=== PATIENT | female | born 1950 | race Caucasian/White ===

== ENCOUNTER 2016-09-30 13:22 | Emergency (ER) | payer MEDICARE ==
[~2016-09-30] VITALS: Ht 154.9 cm; Wt 105.0 kg
[~2016-09-30 13:22] MED LIST: DIPH2%T PO; NINT1CAP2 PO; OMEP20TA39 PO; PAPATAB; RANI150 PO; SALI0.65
[2016-09-30 13:27] VITALS: BP 132/88; PULSE 92; RESP 16; TEMP 97.8; O2SAT 95
[2016-09-30] MEDS ORDERED: CEPH-460 PO (15:55)
--- NOTE | 2016-09-30 15:55 | PD ---
HPI Chief Complaint: Edema Time Seen by Provider: 15:47 Travel History International Travel<30 days: No Contact w/Intl Traveler<30days: No Traveled to known affect area: No History of Present Illness HPI Patient is a 66-year-old female who presents the emergency department with complaint of swelling to the right leg. Approximately 2 weeks ago patient bumped her right leo. Since she has had some bruising and mild erythema. She was seen by her PCP who started her on Bactrim 2 days ago. Patient has been compliant with this but states that the swelling is slightly worse, redness is slightly worse. She called her PCP who instructed her to come to the ER. No risk factors for DVT. She has not noticed any significant swelling in out from the site of the injury within the remainder of the calf or ankle. No shortness of breath worse than her baseline, she does have chronic pulmonary fibrosis. No fevers or chills. 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 HYATAL HERNIA) GERD: Yes Genitourinary: No Headaches: Yes Hypertension: Yes Immune Disorder: No Implanted Vascular Access Dvce: No Musculoskeletal: Yes Neurologic: No Reproductive: Yes (HYSTERECTOMY) Respiratory: Yes Immunizations Current: Yes Menopausal: Yes Past Surgical History Abdominal Surgery: Yes (INCISIONAL HERNIA REPAIR) Cholecystectomy: Yes (1991) Gynecologic Surgery: Yes (HYSTERECTOMY 2003) Hysterectomy: Yes Pacemaker: No Tonsillectomy: Yes Other Surgery: Yes (hernia repair) Social History Alcohol Use: No Tobacco Use: No Substance Use: No Allergies-Medications (Allergen,Severity, Reaction): Coded Allergies: Augmentin (Verified Adverse Reaction, Intermediate, GI UPSET, 11/28/15) Uncoded Allergies: SOME TAPES -RED SAMANTHA (Allergy, Mild, 09/25/07) LEAVES RED SAAMNTHA Reported Meds & Prescriptions Reported Meds & Active Scripts Active Reported Papaya Enzyme (Digestive Enzymes) Tab Saline Nasal [place] (Saline) 0.65 % Spr Benadryl (Diphenhydramine HCl) 25 Mg Cap 25 Mg PO HS PRN Ofev (Nintedanib Esylate) 150 Mg Cap 100 Mg PO Q12HR Zantac 150 Mg Tab (Ranitidine HCl) 150 Mg Tab 150 Mg PO HS Hm Omeprazole (Omeprazole) 20 Mg Tab 20 Mg PO BID Review of Systems Except as stated in HPI: all other systems reviewed are Neg Physical Exam Narrative GENERAL: Pleasant elderly female in no acute distress SKIN: Warm and dry. HEAD: Normocephalic. EYES: No scleral icterus. No injection or drainage. ENT: Mucous membranes pink and moist. NECK: Supple CARDIOVASCULAR: Regular rate and rhythm. RESPIRATORY: No accessory muscle use. MUSCULOSKELETAL: Right lower extremity with abrasion over the anterior mid leo with surrounding ecchymosis and mild erythema but no significant induration, fluctuance. The remainder of the and foot/ankle are primarily nonedematous, symmetric. Strength is decreased throughout, patient is wheelchair-bound. All of her weakness is chronic per patient NEUROLOGICAL: Awake and alert. Normal speech. PSYCHIATRIC: Appropriate mood and affect; insight and judgment normal. Data Data Last Documented VS Vital Signs Date Time Temp Pulse Resp B/P Pulse Ox O2 Delivery O2 Flow Rate FiO2 09/30/16 13:27 97.8 92 16 132/88 95 Nasal Cannula 3 MDM Medical Decision Making Medical Screen Exam Complete: Yes Emergency Medical Condition: Yes Medical Record Reviewed: Yes Differential Diagnosis 66-year-old female here with complaint of swelling and redness to the right leo. Exam is consistent with early cellulitis. No evidence of abscess, cellulitis failing outpatient management, DVT. Narrative Course Will broaden antibiotic regimen from Bactrim to Bactrim plus Keflex. Patient will be discharged home. Diagnosis Primary Impression: Cellulitis of right leg Additional Impression: Abrasion, right lower leg, initial encounter Referrals: Primary Care Physician as needed Additional Instructions: Bactrim and Keflex as prescribed. Follow-up with primary care provider early next week if symptoms persist and return to the ER for the warning signs discussed. Med/Other Pt SpecificInfo: Prescription(s) given Scripts Cephalexin (Keflex)500 Mg Ntd619 Mg PO Q8H 7 Days Ref 0 Prov:Neeta Cardenas MD 09/30/16 Disposition: DISCHARGE HOME Condition: Stable Neeta Cardenas MD Sep 30, 2016 15:55
== END 2016-09-30 17:19 | disposition home or self-care (01) ==
LOC: NEPA 13:22
DX: L03.115 Cellulitis of right lower limb (principal); S80.811A Abrasion, right lower leg, initial encounter; I10 Essential (primary) hypertension; Z87.09 Personal history of other diseases of the respiratory system; Z86.59 Personal history of other mental and behavioral disorders; Z87.19 Personal history of other diseases of the digestive system; Z87.39 Personal history of other diseases of the musculoskeletal system and connective tissue; W22.8XXA Striking against or struck by other objects, initial encounter

== ENCOUNTER 2016-10-18 18:10 | Emergency (ER) | payer MEDICARE ==
[~2016-10-18] VITALS: Ht 154.9 cm; Wt 108.6 kg
[~2016-10-18 18:10] MED LIST changes: +CEPH-460 PO
[2016-10-18 18:22] VITALS: PULSE 114; RESP 16; TEMP 98.4; O2SAT 95
[2016-10-18] MEDS ORDERED: PAPATAB (18:34)
[2016-10-18] MEDS ORDERED: VITA20003 (18:34)
[2016-10-18] MEDS ORDERED: BENA25TA3 PO (18:34)
[2016-10-18] MEDS ORDERED: ZANT150T2 PO (18:34)
[2016-10-18] MEDS ORDERED: [UNRECOGNIZED DRUG - CODE] PO (18:34)
[2016-10-18] MEDS ORDERED: PRED10 PO (18:34)
[2016-10-18] MEDS ORDERED: OMEP20TA PO (18:34)
[2016-10-18 18:46] VITALS: BP 190/94; PULSE 111; RESP 22; O2SAT 98
[2016-10-18 18:48] VITALS: BP 190/94; PULSE 111; RESP 22; TEMP 98.4; O2SAT 98
--- NOTE | 2016-10-18 18:59 | PD ---
HPI Chief Complaint: GI Complaint Time Seen by Provider: 18:30 Travel History International Travel<30 days: No Contact w/Intl Traveler<30days: No Traveled to known affect area: No History of Present Illness HPI This 66-year-old female says she is not feeling well. She had some chest pain yesterday. It was a substernal pain that radiated to her back. It lasted about 15 minutes. She does have a history of hiatal hernia and gets occasional chest pain. He says that today she's been feeling nauseated. She has not vomited. She is not aware of fever. She has a history of idiopathic pulmonary fibrosis and is on efeb. She is on continuous home oxygen. She has a pulse oximeter at home and noted that she was a bit tachycardic. 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 HYATAL HERNIA) GERD: Yes Genitourinary: No Headaches: Yes Hypertension: Yes Immune Disorder: No Implanted Vascular Access Dvce: No Musculoskeletal: Yes Neurologic: No Reproductive: Yes (HYSTERECTOMY) Respiratory: Yes Immunizations Current: Yes Tetanus Vaccination: Unknown ?: Not Menopausal: Yes Past Surgical History Abdominal Surgery: Yes (INCISIONAL HERNIA REPAIR) Cholecystectomy: Yes (1991) Gynecologic Surgery: Yes (HYSTERECTOMY 2003) Hysterectomy: Yes Pacemaker: No Tonsillectomy: Yes Other Surgery: Yes (hernia repair) Social History Alcohol Use: No Tobacco Use: No Substance Use: No Allergies-Medications (Allergen,Severity, Reaction): Coded Allergies: Augmentin (Verified Adverse Reaction, Intermediate, GI UPSET, 10/18/16) Uncoded Allergies: SOME TAPES -RED SAMANTHA (Allergy, Mild, 09/25/07) LEAVES RED SAMANTHA Reported Meds & Prescriptions Reported Meds & Active Scripts Active Reported Zantac (Ranitidine HCl) 150 Mg Tab 150 Mg PO DAILY Vitamin D (Cholecalciferol) 2,000 Unit Tab DAILY Omeprazole 20 Mg Tab 20 Mg PO BID Ofev (Nintedanib) 100 Mg Cap 100 Mg PO Q12H Benadryl Allergy (Diphenhydramine HCl) 25 Mg Tab 25 Mg PO HS PRN Prednisone 10 Mg Tab 10 Mg PO DAILY Papaya Enzyme (Digestive Enzymes) 1 Tab Tab Review of Systems General / Constitutional: No: Fever, Chills Eyes: No: Diploplia, Blurred Vision HENT: No: Headaches Cardiovascular: Positive: Chest Pain or Discomfort, Palpitations, Tachycardia Respiratory: No: Cough, Shortness of Breath Gastrointestinal: Positive: Nausea, No: Vomiting Physical Exam Narrative GENERAL: Well-developed female SKIN: Focused skin assessment warm/dry. HEAD: Atraumatic. Normocephalic. EYES: Pupils equal and round. No scleral icterus. No injection or drainage. ENT: No nasal bleeding or discharge. Mucous membranes pink and moist. NECK: Trachea midline. No JVD. CARDIOVASCULAR: Regular rate and rhythm. No murmur appreciated. RESPIRATORY: There are coarse rales bilaterally GASTROINTESTINAL: Abdomen soft, non-tender, nondistended. Hepatic and splenic margins not palpable. MUSCULOSKELETAL: No obvious deformities. No clubbing. No cyanosis. Trace edema. NEUROLOGICAL: Awake and alert. No obvious cranial nerve deficits. Motor grossly within normal limits. Normal speech. PSYCHIATRIC: Appropriate mood and affect; insight and judgment normal. Data Data Last Documented VS Vital Signs Date Time Temp Pulse Resp B/P Pulse Ox O2 Delivery O2 Flow Rate FiO2 10/18/16 20:24 100 20 181/88 99 10/18/16 18:48 98.4 Nasal Cannula 4 Orders Electrocardiogram (10/18/16 18:52) Complete Blood Count With Diff (10/18/16 18:52) Comprehensive Metabolic Panel (10/18/16 18:52) Troponin I (10/18/16 18:52) Prothrombin Time / Inr (Pt) (10/18/16 18:52) Act Partial Throm Time (Ptt) (10/18/16 18:52) Lipase (10/18/16 18:52) Urinalysis - C+S If Indicated (10/18/16 18:52) Chest, Single Ap (10/18/16 18:52) Ondansetron Inj (Zofran Inj) (10/18/16 19:00) Al-Mag Hy-Si 40-40-4 Mg/Ml Liq (Mag-Al P (10/18/16 19:00) Labs Laboratory Tests Test 10/18/16 10/18/16 19:00 19:45 White Blood Count 10.5 TH/MM3 Red Blood Count 4.83 MIL/MM3 Hemoglobin 13.9 GM/DL Hematocrit 44.4 % Mean Corpuscular Volume 91.9 FL Mean Corpuscular Hemoglobin 28.9 PG Mean Corpuscular Hemoglobin 31.4 % Concent Red Cell Distribution Width 14.9 % Platelet Count 225 TH/MM3 Mean Platelet Volume 8.7 FL Neutrophils (%) (Auto) 80.5 % Lymphocytes (%) (Auto) 13.5 % Monocytes (%) (Auto) 4.6 % Eosinophils (%) (Auto) 0.3 % Basophils (%) (Auto) 1.1 % Neutrophils # (Auto) 8.5 TH/MM3 Lymphocytes # (Auto) 1.4 TH/MM3 Monocytes # (Auto) 0.5 TH/MM3 Eosinophils # (Auto) 0.0 TH/MM3 Basophils # (Auto) 0.1 TH/MM3 CBC Comment DIFF FINAL Differential Comment Prothrombin Time 10.6 SEC Prothromb Time International 1.0 RATIO Ratio Activated Partial 26.4 SEC Thromboplast Time Sodium Level 141 MEQ/L Potassium Level 4.2 MEQ/L Chloride Level 98 MEQ/L Carbon Dioxide Level 39.6 MEQ/L Anion Gap 3 MEQ/L Blood Urea Nitrogen 14 MG/DL Creatinine 0.82 MG/DL Estimat Glomerular Filtration 70 ML/MIN Rate Random Glucose 148 MG/DL Calcium Level 8.3 MG/DL Total Bilirubin 0.2 MG/DL Aspartate Amino Transf 26 U/L (AST/SGOT) Alanine Aminotransferase 77 U/L (ALT/SGPT) Alkaline Phosphatase 76 U/L Troponin I LESS THAN 0.02 NG/ML Total Protein 7.2 GM/DL Albumin 2.8 GM/DL Lipase 144 U/L [facility] Medical Decision Making Medical Screen Exam Complete: Yes Emergency Medical Condition: Yes Medical Record Reviewed: Yes Differential Diagnosis Differential includes hiatal hernia, coronary artery disease, atypical chest pain Narrative Course This lady's chest pain was 24 hours ago and lasted about 15 minutes. Her EKG is unchanged from previous tracings in her troponin is normal. Most likely due to her known hiatal hernia Diagnosis Primary Impression: Hiatal hernia Additional Instructions: Return as needed Disposition: 01 DISCHARGE HOME Condition: Stable Fadi Loomis MD Oct 18, 2016 18:59
[2016-10-18] MEDS ORDERED: ALUMINUM/MAGNESIUM/SIMETH 30 ML CUP PO ONE (19:00)
[2016-10-18] MEDS ORDERED: ONDANSETRON HCL 4 MG/2 ML VIAL IV PUSH ONE (19:00)
[2016-10-18 19:14] LABS: AUTOMATED NEUTROPHIL # 8.5 TH/MM3 (1.8-7.7); BASOPHIL # 0.1 TH/MM3 (0-0.2); BASOPHIL % 1.1 % (0.0-2.0); EOSINOPHIL % 0.3 % (0.0-4.0); HEMATOCRIT 44.4 % (35.0-46.0); LYMPH % 13.5 % (9.0-44.0); LYMPHOCYTE # 1.4 TH/MM3 (1.0-4.8); MEAN CELL VOLUME 91.9 FL (80.0-100.0); MEAN CORPUSCULAR HEMOGLOBIN 28.9 PG (27.0-34.0); MEAN CORPUSCULAR HGB CONC 31.4 % (32.0-36.0); MONO % 4.6 % (0.0-8.0); NEUT % 80.5 % (16.0-70.0); PLATELET COUNT 225 TH/MM3 (150-450); RED BLOOD COUNT 4.83 MIL/MM3 (4.00-5.30); RED CELL DISTRIBUTION WIDTH 14.9 % (11.6-17.2); WHITE BLOOD COUNT 10.5 TH/MM3 (4.0-11.0)
[2016-10-18 19:21] LABS: HEMO FLAGS DIFF FINAL
--- NOTE | 2016-10-18 19:30 | RADHPO ---
EXAM DATE/TIME: 10/18/2016 19:18 [facility] COMPARISON: CHEST SINGLE AP, November 28, 2015, 16:10. INDICATIONS : Short of breath and nauseous. MEDICAL HISTORY : Idiopathic pulmonary fibrosis SURGICAL HISTORY : None. ENCOUNTER: Initial ACUITY: 2 days PAIN SCORE: 0/10 LOCATION: Bilateral chest FINDINGS: The a single AP erect portable view of the chest was obtained. This study is kyphotic in positioning and Midinspiratory with crowding of the lung vasculature. The heart size appears mildly prominent. Raymundo zy interstitial opacities are present in both lungs which may be artifactual. CONCLUSION: Suboptimal Midinspiratory study with crowding of the lung vasculature. There is appar ent cardiomegaly and interstitial opacities in both lungs which may be artifactual and due to the Mid inspiratory view. Silviano Schaefer MD on October 18, 2016 at 19:27 Board Certified Radiologist. This report was verified electronically.
[2016-10-18 20:06] LABS: CHLORIDE 98 MEQ/L (98-107); POTASSIUM 4.2 MEQ/L (3.5-5.1); SODIUM (NA) 141 MEQ/L (136-145)
[2016-10-18 20:10] LABS: ANION GAP 3 MEQ/L (5-15); APTT (PATIENT) 26.4 SEC (24.3-30.1); BICARBONATE 39.6 MEQ/L (21.0-32.0); BLOOD UREA NITROGEN 14 MG/DL (7-18); PROTHROMBIN TIME - PATIENT 10.6 SEC (9.8-11.6)
[2016-10-18 20:12] LABS: ALT (GPT) 77 U/L (10-53)
[2016-10-18 20:13] LABS: AST (GOT) 26 U/L (15-37); GLOMERULAR FILTRATION RATE 70 ML/MIN (>89)
[2016-10-18 20:14] LABS: TOTAL BILIRUBIN ADULT 0.2 MG/DL (0.2-1.0)
[2016-10-18 20:16] LABS: ALKALINE PHOSPHATASE 76 U/L (45-117)
[2016-10-18 20:24] VITALS: BP 181/88; PULSE 100; RESP 20; O2SAT 99
[2016-10-18 21:04] VITALS: BP 179/89; PULSE 101; RESP 20; O2SAT 98
--- NOTE | 2016-10-19 10:34 | EKG ---
Date Performed: 10/18/2016 Time Performed: 18:58:38 PTAGE: 66 years EKG: Sinus tachycardia. rSr'(V1) - probable normal variant Left ventricular hypertrophy by [employer] [place] ge only Abnormal ECG PREVIOUS TRACING : 11/28/2015 15.47 DOCTOR: Marlo Kaplan Interpretating Date/Time 10/19/2016 10:33:59
== END 2016-10-18 21:21 | disposition home or self-care (01) ==
LOC: PHED 18:10
DX: K44.9 Diaphragmatic hernia without obstruction or gangrene (principal); R11.0 Nausea; R00.0 Tachycardia, unspecified; R94.31 Abnormal electrocardiogram [ECG] [EKG]; I10 Essential (primary) hypertension; Z99.81 Dependence on supplemental oxygen; Z87.09 Personal history of other diseases of the respiratory system; Z86.59 Personal history of other mental and behavioral disorders; Z87.19 Personal history of other diseases of the digestive system; Z87.39 Personal history of other diseases of the musculoskeletal system and connective tissue
CPT/HCPCS: 71010; 80053; 83690; 84484; 85025; 85610; 85730; 93005; 96374; 99284; J2405

== ENCOUNTER 2017-03-08 15:47 | Inpatient (IN) | payer MEDICARE ==
[~2017-03-08] VITALS: Ht 152.4 cm; Wt 107.6 kg
[2017-03-08] VITALS (10 sets, daily range): BP systolic 142–172; BP diastolic 78–91; PULSE 96–112; RESP 20–24; TEMP 98.3–98.9; O2SAT 94–98
[~2017-03-08 15:47] MED LIST changes: +BENA25TA3 PO; -CEPH-460 PO; -DIPH2%T PO; -NINT1CAP2 PO; +OMEP20TA PO; -OMEP20TA39 PO; +PRED10 PO; -RANI150 PO; -SALI0.65; +VITA20003; +ZANT150T2 PO; +[UNRECOGNIZED DRUG - CODE] PO
[2017-03-08] MEDS ORDERED: SODIUM CHLORIDE 0.9% FLUSH 10 ML FLUSH IVF PRN (16:15)
--- NOTE | 2017-03-08 16:15 | PD ---
HPI Chief Complaint: shortness of breath Time Seen by Provider: 15:59 Travel History International Travel<30 days: No Contact w/Intl Traveler<30days: No Traveled to known affect area: No History of Present Illness HPI This 66-year-old female is complaining of shortness of breath and generalized weakness. She has a history of idiopathic pulmonary fibrosis. She is on OFEV. She recently finished a course of doxycycline. She is on prednisone 10 mg daily. She also gets a weekly dose of vitamin D. She has a history of Patel' s esophagus and is on multiple medications. She is on oxygen all the time of 4 L/m. She says that the last few days he's been feeling weaker than usual and has been short of breath and she has never been on a ventilator. She has never been admitted for pulmonary fibrosis. She is not aware of fever or chills. She stopped smoking in 1991. She has no known history of heart disease. 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 HYATAL HERNIA) GERD: Yes Genitourinary: No Headaches: Yes Hypertension: Yes Immune Disorder: No Implanted Vascular Access Dvce: No Musculoskeletal: Yes Neurologic: No Reproductive: Yes (HYSTERECTOMY) Respiratory: Yes Immunizations Current: Yes Menopausal: Yes Past Surgical History Abdominal Surgery: Yes (INCISIONAL HERNIA REPAIR) Cholecystectomy: Yes (1991) Gynecologic Surgery: Yes (HYSTERECTOMY 2003) Hysterectomy: Yes Pacemaker: No Tonsillectomy: Yes Other Surgery: Yes (hernia repair) Social History Alcohol Use: No Tobacco Use: No Substance Use: No Allergies-Medications (Allergen,Severity, Reaction): Coded Allergies: amoxicillin (Unverified Adverse Reaction, Intermediate, GI UPSET, 03/08/17) clavulanic acid (Unverified Adverse Reaction, Intermediate, GI UPSET, 03/08) Uncoded Allergies: SOME TAPES -RED SAMANTHA (Adverse Reaction, Mild, 03/08/17) LEAVES RED SAMANTHA Reported Meds & Prescriptions Reported Meds & Active Scripts Active Reported D3 Maximum Strength (Cholecalciferol) 5,000 Unit Cap 50,000 Units PO WEEKLY Chavies (Saline) 0.65 % Spr 1 NASAL DAILY PRN Nasonex Nasal [place] (Mometasone Furoate) 50 Mcg/Act Naspr 2 [place] EACH NARE DAILY Zantac (Ranitidine HCl) 150 Mg Tab 150 Mg PO DAILY Omeprazole 20 Mg Tab 20 Mg PO BID Ofev (Nintedanib) 100 Mg Cap 100 Mg PO Q12H Prednisone 10 Mg Tab 10 Mg PO DAILY Papaya Enzyme (Digestive Enzymes) 1 Tab Tab Review of Systems General / Constitutional: No: Fever, Chills Eyes: No: Diploplia, Blurred Vision HENT: No: Headaches, Vertigo Cardiovascular: No: Chest Pain or Discomfort, Palpitations Respiratory: Positive: Shortness of Breath, No: Cough, Hemoptysis Gastrointestinal: No: Nausea, Vomiting Genitourinary: No: Urgency Musculoskeletal: No: Myalgias Skin: No Rash, No Itching Neurologic: Positive: Weakness Hematologic/Lymphatic: No: Easy Bruising Physical Exam Narrative GENERAL: Well-developed female labored breathing. Her saturation on arrival on 4 L of oxygen is 86% SKIN: Focused skin assessment warm/dry. HEAD: Atraumatic. Normocephalic. EYES: Pupils equal and round. No scleral icterus. No injection or drainage. ENT: No nasal bleeding or discharge. Mucous membranes pink and moist. NECK: Trachea midline. No JVD. CARDIOVASCULAR: Regular rate and rhythm. No murmur appreciated. RESPIRATORY: There is accessory muscle use. There are coarse rales in the right side chest GASTROINTESTINAL: Abdomen soft, non-tender, nondistended. Hepatic and splenic margins not palpable. MUSCULOSKELETAL: No obvious deformities. No clubbing. No cyanosis. No edema. NEUROLOGICAL: Awake and alert. No obvious cranial nerve deficits. Motor grossly within normal limits. Normal speech. PSYCHIATRIC: Appropriate mood and affect; insight and judgment normal. Data Data Last Documented VS Vital Signs Date Time Temp Pulse Resp B/P (MAP) Pulse Ox O2 Delivery O2 Flow Rate FiO2 03/08/17 17:05 110 20 162/85 (110) 96 Nasal Cannula 4.00 03/08/17 16:10 98.9 Orders Orders Complete Blood Count With Diff (03/08/17 16:08) Comprehensive Metabolic Panel (03/08/17 16:08) B-Type Natriuretic Peptide (03/08/17 16:08) Troponin I (03/08/17 16:08) Urinalysis - C+S If Indicated (03/08/17 16:08) Influenzae A/B Antigen (03/08/17 16:08) Blood Culture (03/08/17 16:08) Iv Access Insert/Monitor (03/08/17 16:08) Electrocardiogram (03/08/17 16:08) Ecg Monitoring (03/08/17 16:08) Oximetry (03/08/17 16:08) Oxygen Administration (03/08/17 16:08) Chest, Single Ap (03/08/17 16:08) Sodium Chloride 0.9% Flush (Ns Flush) (03/08/17 16:15) Albuterol Neb (Albuterol Neb) (03/08/17 16:15) Admit Order (Ed Use Only) (03/08/17 17:33) Admit To Inpatient (03/08/17 ) Labs Laboratory Tests Test 03/08/17 16:20 White Blood Count 11.5 TH/MM3 Red Blood Count 4.56 MIL/MM3 Hemoglobin 13.6 GM/DL Hematocrit 41.6 % Mean Corpuscular Volume 91.3 FL Mean Corpuscular Hemoglobin 29.8 PG Mean Corpuscular Hemoglobin Concent 32.7 % Red Cell Distribution Width 13.9 % Platelet Count 222 TH/MM3 Mean Platelet Volume 8.1 FL Neutrophils (%) (Auto) 87.1 % Lymphocytes (%) (Auto) 7.8 % Monocytes (%) (Auto) 4.1 % Eosinophils (%) (Auto) 0.5 % Basophils (%) (Auto) 0.5 % Neutrophils # (Auto) 9.9 TH/MM3 Lymphocytes # (Auto) 0.9 TH/MM3 Monocytes # (Auto) 0.5 TH/MM3 Eosinophils # (Auto) 0.1 TH/MM3 Basophils # (Auto) 0.1 TH/MM3 CBC Comment DIFF FINAL Differential Comment Blood Urea Nitrogen 16 MG/DL Creatinine 0.92 MG/DL Random Glucose 135 MG/DL Total Protein 7.4 GM/DL Albumin 2.9 GM/DL Calcium Level 9.0 MG/DL Alkaline Phosphatase 61 U/L Aspartate Amino Transf (AST/SGOT) 15 U/L Alanine Aminotransferase (ALT/SGPT) 21 U/L Total Bilirubin 0.3 MG/DL Sodium Level 138 MEQ/L Potassium Level 4.2 MEQ/L Chloride Level 95 MEQ/L Carbon Dioxide Level 39.8 MEQ/L Anion Gap 3 MEQ/L Estimat Glomerular Filtration Rate 61 ML/MIN Troponin I LESS THAN 0.02 NG/ML B-Type Natriuretic Peptide LESS THAN 2 PG/ML MDM Medical Decision Making Medical Screen Exam Complete: Yes Emergency Medical Condition: Yes Medical Record Reviewed: Yes Differential Diagnosis Differential includes exacerbation of pulmonary fibrosis, pneumonia, CHF Narrative Course X-ray is unchanged from previous x-rays. Patient sees Dr. Dickinson and I have called him but his service says he does not accept calls from this hospital. I spoken with Dr. Mcintyre. The patient has been deteriorating in spite of her current medication. She will be admitted Diagnosis Primary Impression: Idiopathic pulmonary fibrosis Additional Impression: Hypoxia Disposition: 01 DISCHARGE HOME Condition: Stable Fadi Loomis MD Mar 08, 2017 16:15
[2017-03-08] MEDS: RESP: ALBUTEROL 2.5 MG/3 ML NEB (SCH) INH ×2 (16:25→16:26)
--- NOTE | 2017-03-08 16:39 | RADRPT ---
EXAM DATE/TIME: 03/08/2017 16:10 [facility] COMPARISON: CHEST SINGLE AP, November 28, 2015, 16:10. CHEST SINGLE AP, June 23, 2015, 14:05. CHEST SINGLE AP, A pril 2016, 19:18. INDICATIONS : Short of breath. MEDICAL HISTORY : Idiopathic pulmonary fibrosis. SURGICAL HISTORY : None. ENCOUNTER: Initial ACUITY: 2 days PAIN SCORE: 0/10 LOCATION: Bilateral chest FINDINGS: Bilateral hilar prominence and diffuse coarse interstitial thickening are grossly unchanged. No signi ficant effusion. Cardiomediastinal contours are grossly stable. CONCLUSION: Stable abnormal chest appearance Irvin Tomlinson MD on March 08, 2017 at 16:36 Board Certified Radiologist. This report was verified electronically.
[2017-03-08 16:45] LABS: AUTOMATED NEUTROPHIL # 9.9 TH/MM3 (1.8-7.7); BASOPHIL # 0.1 TH/MM3 (0-0.2); BASOPHIL % 0.5 % (0.0-2.0); EOSINOPHIL # 0.1 TH/MM3 (0-0.4); EOSINOPHIL % 0.5 % (0.0-4.0); HEMATOCRIT 41.6 % (35.0-46.0); HEMO FLAGS DIFF FINAL; LYMPH % 7.8 % (9.0-44.0); LYMPHOCYTE # 0.9 TH/MM3 (1.0-4.8); MEAN CELL VOLUME 91.3 FL (80.0-100.0); MEAN CORPUSCULAR HEMOGLOBIN 29.8 PG (27.0-34.0); MEAN CORPUSCULAR HGB CONC 32.7 % (32.0-36.0); MONO % 4.1 % (0.0-8.0); NEUT % 87.1 % (16.0-70.0); PLATELET COUNT 222 TH/MM3 (150-450); RED BLOOD COUNT 4.56 MIL/MM3 (4.00-5.30); RED CELL DISTRIBUTION WIDTH 13.9 % (11.6-17.2); WHITE BLOOD COUNT 11.5 TH/MM3 (4.0-11.0)
[2017-03-08 16:53] LABS: CHLORIDE 95 MEQ/L (98-107); POTASSIUM 4.2 MEQ/L (3.5-5.1); SODIUM (NA) 138 MEQ/L (136-145)
[2017-03-08 16:57] LABS: ANION GAP 3 MEQ/L (5-15); BICARBONATE 39.8 MEQ/L (21.0-32.0); BLOOD UREA NITROGEN 16 MG/DL (7-18)
[2017-03-08 17:00] LABS: ALT (GPT) 21 U/L (10-53); AST (GOT) 15 U/L (15-37); GLOMERULAR FILTRATION RATE 61 ML/MIN (>89)
[2017-03-08 17:01] LABS: TOTAL BILIRUBIN ADULT 0.3 MG/DL (0.2-1.0)
[2017-03-08 17:02] LABS: ALKALINE PHOSPHATASE 61 U/L (45-117)
[2017-03-08] MEDS ORDERED: AYR0.65S NASAL (17:04)
[2017-03-08] MEDS ORDERED: MOME17I EACH NARE (17:04)
[2017-03-08] MEDS: LEVOFLOXACIN 500 MG TAB PO SCH (18:10)
[2017-03-08] MEDS ORDERED: CHOL1CAP14 PO (18:15)
[2017-03-08 18:47] LABS: BLOOD, URINE LARGE (NEG); GLUCOSE,URINE NEG (NEG); KETONE, URINE NEG (NEG); NITRITE,URINE NEG (NEG)
[2017-03-08 19:00] LABS: URINE COLOR YELLOW (YELLW/STRAW)
[2017-03-08 19:01] LABS: BACTERIA, URINE FEW /hpf; COMMENT (UR) CULTURE INDICATED; CULTURE IF INDICATED CULTURE INDICATED; MUCUS URINE FEW /lpf (OCC); SQUAMOUS EPITHELIAL CELL URINE > 8 /hpf (0-5)
[2017-03-08] MEDS: RESP: ALBUTEROL 1.25 MG/3 ML NEB (PRN) NEB (19:21)
[2017-03-08] MEDS ORDERED: RESP: ALBUTEROL 2.5 MG/3 ML NEB (SCH) NEB (20:00)
--- NOTE | 2017-03-08 21:58 | MH ---
cc: JOS DUNLAP M.D. DATE OF ADMISSION 03/08/2017 ADMISSION DIAGNOSES 1. Chronic idiopathic pulmonary fibrosis on chronic oxygen with worsening shortness of breath. 2. Zamorano's esophagus. 3. Gastroesophageal reflux disease. 4. Allergic rhinitis. HISTORY OF THE PRESENT ILLNESS Pertinent history, this is a pleasant 66-year-old white female who came to emergency room because of a little bit increasing weakness over the last few days with increasing shortness of breath. She has chronic idiopathic pulmonary fibrosis diagnosed in 2014, has been on chronic oxygen since then. She normally uses 4 liters of oxygen. She states she has been little bit more short of breath especially with exertion in the last few days. She sees a local hydramatic specialist Dr. Freitas. She was recently treated for a sinus symptoms with doxycycline that she finished. She denies any increased cough at this time. Denies any chills, vomiting or diarrhea. In the ED her O2 sat was a little bit low when she came in on 4 liters and they initially put her on 5 liters. She was given some albuterol treatment. She has some problems with anxiety with Atrovent and does not use that. She has not been regularly using her Atrovent. She is on daily prednisone at 10 mg a day. Her chest x-ray showed chronic interstitial changes and they were stable. She is admitted for oxygen therapy and was put on Levaquin. Will be continued on nebulizer treatments and oral prednisone. PAST MEDICAL HISTORY As mentioned has: 1. Chronic idiopathic pulmonary fibrosis on chronic oxygen. 2. She has gastroesophageal reflux disease and Zamorano's esophagus. 3. She had questionable history of asthma in the past. Denies any COPD or emphysema. 4. She was treated one time with lisinopril for hypertension but was taken off of it when she developed a cough and has not been on medicine since then. 5. She has had no heart disease, liver or kidney disease. No colon disease. No stroke or seizure no cancer. No diabetes. PAST SURGICAL HISTORY 1. Has had a colonoscopy about 5 years ago. 2. She had a total abdominal hysterectomy and bilateral salpingo-oophorectomy. 3. Had an incisional hernia repair. 4. Tonsillectomy. 5. Laparoscopic cholecystectomy. ALLERGIES LISINOPRIL CAUSES COUGH. AUGMENTIN CAUSES GI DISTRESS. MEDICATIONS She takes: 1. Ranitidine 150 mg at bedtime. 2. Omeprazole 20 mg twice a day. 3. She is on Nintedanib 100 mg twice a day for pulmonary fibrosis. 4. He is on prednisone 10 mg a day. 5. Atrovent nebulizer solution p.r.n. 6. Fluticasone nasal spray as needed for allergic rhinitis. FAMILY HISTORY Mother of heart failure at 82. She had diabetes. Father at 61 of stroke, had diabetes. SOCIAL HISTORY She quit smoking in 1991, smoked up to two packs a day and smoked for 20 years. Does not use alcohol. Lives alone. Never . 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 She does not currently work. REVIEW OF SYSTEMS GENERAL: No documented temperature above 100. No chills. HEENT: Nose, she has had the recent sinus symptoms and a yellow drainage from her nose that is improved. No sore throat. CARDIOVASCULAR: No chest pain. No palpitations. LUNGS: As mentioned. GASTROINTESTINAL: She does get reflux symptoms and belching up acid after eating. No diarrhea, melena, rectal bleeding. No abdominal pain. GENITOURINARY: No dysuria, urgency. EXTREMITIES: She does have some chronic slight edema of her ankles more in her right leg. No calf pain. SKIN: Without rash. NEUROLOGIC: No numbness or tingling or focal weakness. PHYSICAL EXAMINATION GENERAL: Pleasant, obese white female in no distress. VITAL SIGNS: Her pulse is around 104, BP 142/86, O2 sat currently is 96% on 4 liters, they had moved her back down to 4 liters. HEENT: TMs clear. Nose negative. Mouth without inflammation. NECK: Without bruit. No JVD. CARDIOVASCULAR: Regular rate and rhythm. No murmur. LUNGS: Dry crackles throughout her lungs. No wheezing. ABDOMEN: Soft, nontender, no masses. EXTREMITIES: With just trace to 1+ edema right ankle. Trace edema left ankle. Pulses palpated both feet. No calf tenderness. SKIN: Without rash. NEUROLOGIC: Oriented x3. Motor strength symmetrical. Sensation intact. LABORATORY DATA White count 11.5, hemoglobin 13.6, platelets 222,000. Sodium 138, potassium 4.2, chloride 95, CO2 39.8, BUN 16, creatinine 0.92, random glucose 135, GFR 61. AST, ALT alkaline phosphatase normal. Troponin less than 0.02. Albumin 2.9, total protein was 7.4. BNP less than 2. IMAGING STUDIES Her chest x-ray shows stable abnormal chest appearance with bilateral hilar prominence and diffuse coarse interstitial thickening that was grossly unchanged. No effusion noted. ASSESSMENT As noted. PLAN The patient being admitted, maintained on oxygen and she will be given at albuterol nebulizer treatments. She is on prednisone 10 mg a day. We will put her on Levaquin 500 mg a day. A pulmonary consult was ordered as well. She has not formally decided her code status, she however, states she would not want to be put on a respirator if it could be determined she would have difficulty coming off of the ventilator. I told her that is difficult for us to determine. We will give her bilateral SCDs and ALYCIA hose. MD LUCIO Zabala/PARAS /7:14 PM /9:28 PM
[2017-03-08] MEDS: PANTOPRAZOLE SOD 20 MG DELAYED RELEASE TAB PO SCH (22:50)
[2017-03-09 00:15] VITALS: BP 184/94; PULSE 94; RESP 18; TEMP 98.3; O2SAT 95
[2017-03-09 00:40] VITALS: BP 165/99; PULSE 92; RESP 20; TEMP 98.1; O2SAT 97
[2017-03-09 00:41] VITALS: BP 143/84; PULSE 89
[2017-03-09 04:00] VITALS: BP 164/80; PULSE 88; RESP 20; TEMP 96.8; O2SAT 98
[2017-03-09 06:32] LABS: AUTOMATED NEUTROPHIL # 6.3 TH/MM3 (1.8-7.7); BASOPHIL % 0.3 % (0.0-2.0); EOSINOPHIL # 0.1 TH/MM3 (0-0.4); EOSINOPHIL % 1.5 % (0.0-4.0); HEMATOCRIT 39.5 % (35.0-46.0); HEMO FLAGS DIFF FINAL; LYMPH % 19.3 % (9.0-44.0); LYMPHOCYTE # 1.8 TH/MM3 (1.0-4.8); MEAN CELL VOLUME 91.9 FL (80.0-100.0); MEAN CORPUSCULAR HEMOGLOBIN 29.7 PG (27.0-34.0); MEAN CORPUSCULAR HGB CONC 32.3 % (32.0-36.0); MONO % 9.4 % (0.0-8.0); NEUT % 69.5 % (16.0-70.0); PLATELET COUNT 192 TH/MM3 (150-450); RED CELL DISTRIBUTION WIDTH 14.6 % (11.6-17.2); WHITE BLOOD COUNT 9.1 TH/MM3 (4.0-11.0)
--- NOTE | 2017-03-09 06:34 | MB ---
cc: Pati DUNLAP M.D. DATE OF CONSULTATION 03/08/2017 HISTORY A 66-year-old white female with a known history of pulmonary fibrosis followed by Dr. Mathis who has been on OFEV for two years as well as a low dose of prednisone at 10 mg a day. She presented today complaining of generalized weakness and just not feeling like her breathing was right. She has had no unusual cough, no congestion or purulent sputum. No chest pain or hemoptysis. She monitors her saturation at home and on 4 liters she has been running in the 80s or low 90s which is where she normally lives. Nothing really preceded this. Yesterday was a good day, although she did recently feel that she had a sinus infection and she was treated with doxycycline. On presentation to the emergency room, she has been afebrile, heart rate is 100, blood pressure on presentation was 172/81, currently 140/80, saturations are 96% at 4 liters, respirations are comfortable at 18-22. The patient also has a prior history of asthma at some point but says that she is no longer taking any of breathing medications. She does have a nebulizer at home but did not use it. Here in the emergency room she did receive an aerosol treatment and says she feels better. She has had no increasing edema, no bowel symptoms such as diarrhea or vomiting. She does have a history of Zamorano's esophagus and chronic reflux for many years which both Dr. Mathis and Dr. Diana at the [facility] suggested may be related to her pulmonary fibrotic disease. ADDITIONAL PAST HISTORY 1. Hypertension. 2. Prior hysterectomy, postmenopausal. 3. Cholecystectomy. SOCIAL HISTORY Lives alone with her dog, sometimes feels a little isolated and afraid because of the disease. Monitors her saturation carefully and is concerned that she drops when she exerts herself but that is nothing new or acute. No alcohol use. No tobacco use. ALLERGIES AMOXICILLIN. CLAVULANIC ACID. TAPE. REVIEW OF SYSTEMS As noted above, essentially negative other than generalized weakness and the feeling that her breathing was more short. PHYSICAL EXAMINATION VITAL SIGNS: Pulse is 100, respirations are 18-22, blood pressure 140/86, saturation 96% on 4 liters. HEENT: Sclerae anicteric. NECK: Neck veins are flat. No adenopathy in the neck or supraclavicular region. LUNGS: Fine basilar rales about [facility] up both lungs posterior, sound chronic and fibrotic, not moist. No wheezing. No harsh murmur. ABDOMEN: Very obese but soft and nontender. EXTREMITIES: Large legs but no pitting edema. No calf tenderness. Nail beds are pink. LABORATORY White count is 11,000, hemoglobin is 13, platelets 222. BNP is low. CHEST X-RAY Diffuse interstitial changes interpreted by the radiologist as stable when compared to the previous films. Influenza A and B are negative. Two blood cultures were drawn and are pending. ASSESSMENT AND PLAN Ms. Mera has a known history of interstitial lung disease, pulmonary fibrosis chronic. She is under the care of Dr. Mathis and has been a low dose of prednisone and OFEV. She just did not have a good feeling today, although now she feels much better after an aerosol treatment. She is mildly tachycardiac, otherwise vitals are stable and her O2 sats are stable on the 4 liters which she normally uses. She has been admitted which I think is reasonable given her history. She may do well with overnight observation and another aerosol treatment which I have ordered p.r.n. I do not think she needs any further adjustment in therapy, although if she becomes more short of breath and this is an exacerbation of her fibrosis, we will need to switch her over to at least a short course of IV corticosteroids. If she is discharged tomorrow after 23-hour observation feeling much better, I have encouraged her to call Dr. Mathis's office this week and let him know that she was here. He would probably want to see her back within the next week for follow up to see if any further adjustment would be needed for her chronic lung disease. The patient also has a nebulizer at home and I encouraged her to use that. If she has episodes like this in the future, they may be of benefit as they were here in the ER today. Thank you for asking me to see her with you in consultation. R. MD ELA Hyman/XAVIER /6:33 PM /6:13 AM
[2017-03-09] MEDS ORDERED: ALBU1.25 NEB (07:15)
[2017-03-09] MEDS ORDERED: COZA25TA PO (07:15)
[2017-03-09] MEDS ORDERED: LEVA500T20 PO (07:15)
[2017-03-09] MEDS: RESP: ALBUTEROL 1.25 MG/3 ML NEB (PRN) NEB (07:18)
[2017-03-09 07:20] VITALS: O2SAT 94
--- NOTE | 2017-03-09 07:25 | HHI.PR ---
Subjective Remarks She states her breathing seems back to her baseline. She is not coughing. Her oxygenation is stable back on her 4 liters of oxygen that she regularly uses. Objective Vitals Vital Signs Date Time Temp Pulse Resp B/P (MAP) Pulse Ox O2 Delivery O2 Flow Rate FiO2 03/09/17 04:00 96.8 88 20 164/80 (108) 98 03/09/17 00:41 89 143/84 (103) 03/09/17 00:40 98.1 92 20 165/99 (121) 97 03/09/17 00:17 03/09/17 00:15 98.3 94 18 184/94 (124) 95 Nasal Cannula 4.00 03/09/17 00:15 Nasal Cannula 4.00 03/08/17 22:51 96 157/79 (105) 97 Nasal Cannula 4.00 03/08/17 21:13 98.3 104 20 149/91 (110) 98 Nasal Cannula 4.00 03/08/17 21:13 98 Nasal Cannula 4.00 03/08/17 19:20 95 Nasal Cannula 4.00 03/08/17 19:00 98.3 112 20 164/87 (112) 97 Room Air 4.00 03/08/17 19:00 97 Nasal Cannula 4.00 03/08/17 18:19 Nasal Cannula 4.00 03/08/17 18:12 104 20 142/86 (104) 96 Nasal Cannula 4.00 03/08/17 17:05 110 20 162/85 (110) 96 Nasal Cannula 4.00 03/08/17 16:45 100 20 154/84 (107) 95 Nasal Cannula 4.00 03/08/17 16:40 105 20 155/78 (103) 94 Nasal Cannula 4.00 03/08/17 16:40 94 Nasal Cannula 4.00 03/08/17 16:20 97 Nasal Cannula 5.00 03/08/17 16:10 92 Nasal Cannula 03/08/17 16:10 98.9 104 24 172/81 (111) 03/08/17 16:10 Nasal Cannula 03/08/17 16:10 92 Nasal Cannula 5.00 Result Diagram: 03/09/17 0435 03/08/17 1620 Other Results Laboratory Tests Test 03/08/17 16:20 03/08/17 18:30 8/31/17 04:35 White Blood Count 11.5 TH/MM3 9.1 TH/MM3 Red Blood Count 4.56 MIL/MM3 4.30 MIL/MM3 Hemoglobin 13.6 GM/DL 12.8 GM/DL Hematocrit 41.6 % 39.5 % Mean Corpuscular Volume 91.3 FL 91.9 FL Mean Corpuscular Hemoglobin 29.8 PG 29.7 PG Mean Corpuscular Hemoglobin Concent 32.7 % 32.3 % Red Cell Distribution Width 13.9 % 14.6 % Platelet Count 222 TH/MM3 192 TH/MM3 Mean Platelet Volume 8.1 FL 8.6 FL Neutrophils (%) (Auto) 87.1 % 69.5 % Lymphocytes (%) (Auto) 7.8 % 19.3 % Monocytes (%) (Auto) 4.1 % 9.4 % Eosinophils (%) (Auto) 0.5 % 1.5 % Basophils (%) (Auto) 0.5 % 0.3 % Neutrophils # (Auto) 9.9 TH/MM3 6.3 TH/MM3 Lymphocytes # (Auto) 0.9 TH/MM3 1.8 TH/MM3 Monocytes # (Auto) 0.5 TH/MM3 0.9 TH/MM3 Eosinophils # (Auto) 0.1 TH/MM3 0.1 TH/MM3 Basophils # (Auto) 0.1 TH/MM3 0.0 TH/MM3 CBC Comment DIFF FINAL DIFF FINAL Differential Comment Blood Urea Nitrogen 16 MG/DL Creatinine 0.92 MG/DL Random Glucose 135 MG/DL Total Protein 7.4 GM/DL Albumin 2.9 GM/DL Calcium Level 9.0 MG/DL Alkaline Phosphatase 61 U/L Aspartate Amino Transf (AST/SGOT) 15 U/L Alanine Aminotransferase (ALT/SGPT) 21 U/L Total Bilirubin 0.3 MG/DL Sodium Level 138 MEQ/L Potassium Level 4.2 MEQ/L Chloride Level 95 MEQ/L Carbon Dioxide Level 39.8 MEQ/L Anion Gap 3 MEQ/L Estimat Glomerular Filtration Rate 61 ML/MIN Troponin I LESS THAN 0.02 NG/ML B-Type Natriuretic Peptide LESS THAN 2 PG/ML Urine Color YELLOW Urine Turbidity SLIGHT Urine pH 6.0 Urine Specific [place] 1.025 Urine Protein NEG mg/dL Urine Glucose (UA) NEG mg/dL Urine Ketones NEG mg/dL Urine Occult Blood LARGE Urine Nitrite NEG Urine Bilirubin NEG Urine Leukocyte Esterase NEG Urine RBC 4-9 /hpf Urine WBC 9-14 /hpf Urine Squamous Epithelial Cells > 8 /hpf Urine Bacteria FEW /hpf Urine Mucus FEW /lpf Microscopic Urinalysis Comment CULTURE INDICATED Imaging Last Impressions Chest X-Ray 03/08/17 1608 Signed Impressions: Service Date/Time: Monday, March 08, 2017 16:10 - CONCLUSION: Stable abnormal chest appearance Irvin Tomlinson MD Objective Remarks Exam: Pleasant female in no distress. HEENT: Pupils equal, no scleral icterus Neck: No JVD Heart: RRR with no murmurs Lungs: Fine dry crackles both lungs bases c/w her diagnosis of pulmonary fibrosis Abdomen: Soft, nontender Extremities: Trace ankle edema bilaterally Neuro: Alert, oriented A/P Assessment and Plan Assessment: --Chronic idiopathic pulmonary fibrosis with mild exacerbation --Chronic respiratory failure on chronic oxygen therapy--now back to her baseline oxyen level --Hypertension --GERD/Zamorano's esophagus Plan: She is stable and will be discharged home today. Was seen by pulmonary yesterday who stated she could be discharged today from his standpoint if she remained stable. She will continue on her oxygen 4 liters at home and she does have a pulse oximeter at home that she monitors her oxygen levels. I told her to use the Albuterol nebulizer solution 4 times a day. She will continue her Prednisone 10mg daily. She will continue her Ranitidine and Omeprazole. I order Levofloxacin 500mg daily for 6 more days. I started her on Losartan 25mg daily for hypertension. She had been treated for hypertension in the past (she had a cough with Lisinopril). She will followup with her PCP (Dr Muir) in one week and her curatorial specialist (Dr Freitas) in 1-2 weeks. Mirza Thacker MD Mar 09, 2017 07:25
[2017-03-09 08:00] VITALS: BP 157/88; PULSE 93; RESP 28; TEMP 98.1; O2SAT 95
[2017-03-09] MEDS: LEVOFLOXACIN 500 MG TAB PO SCH (08:42)
[2017-03-09] MEDS: PANTOPRAZOLE SOD 20 MG DELAYED RELEASE TAB PO SCH (08:42)
[2017-03-09] MEDS ORDERED: OFEV 100 MG PO SCH (09:00)
[2017-03-09] MEDS ORDERED: predniSONE 10 MG TAB PO SCH (09:00)
[2017-03-09] MEDS ORDERED: FAMOTIDINE 20 MG TAB PO SCH (09:00)
[2017-03-09] MEDS ORDERED: LOSARTAN 25 MG TAB PO SCH (09:00)
--- NOTE | 2017-03-09 17:59 | EKG ---
Date Performed: 03/08/2017 Time Performed: 16:22:00 PTAGE: 66 years EKG: SINUS TACHYCARDIA VOLTAGE CRITERIA FOR LVH ABNORMAL ECG Compared to prior tracing no signif icant change PREVIOUS TRACING : 10/18/2016 18.58 DOCTOR: Mayank Adams Interpretating Date/Time 03/09/2017 18:00:13
[2017-03-10] MEDS ORDERED: LEVOFLOXACIN 250 MG TAB PO SCH (11:00)
== END 2017-03-09 13:01 | disposition home or self-care (01) | DRG 197 ==
LOC: PHED 15:47 → PHEDA 17:35 → PHEDH 21:35 → PH3B 03-09 00:31
PROVIDERS: ADMIT Family Medicine; ATTEND Family Medicine
DX: J84.112 Idiopathic pulmonary fibrosis (principal); Z68.42 Body mass index [BMI] 45.0-49.9, adult; J96.11 Chronic respiratory failure with hypoxia; Z99.81 Dependence on supplemental oxygen; J44.9 Chronic obstructive pulmonary disease, unspecified; I10 Essential (primary) hypertension; F41.9 Anxiety disorder, unspecified; R00.0 Tachycardia, unspecified; Z87.891 Personal history of nicotine dependence; K21.9 Gastro-esophageal reflux disease without esophagitis; K22.70 Barrett's esophagus without dysplasia; E66.9 Obesity, unspecified; Z79.52 Long term (current) use of systemic steroids
CPT/HCPCS: 71010; 80053; 81001; 83880; 84484; 85025; 87040; 87086; 87804; 93005; 94640; 94664; 99285; J7512; J7613

== ENCOUNTER 2017-05-11 00:14 | Inpatient (IN) | payer MEDICARE ==
[2017-05-11] VITALS (30 sets, daily range): BP systolic 122–185; BP diastolic 59–103; PULSE 92–114; RESP 16–49; TEMP 97.6–98.8; O2SAT 83–100
[~2017-05-11] VITALS: Ht 152.4 cm; Wt 101.5 kg
[~2017-05-11 00:14] MED LIST changes: +ALBU1.25 NEB; +AYR0.65S NASAL; -BENA25TA3 PO; +CHOL1CAP14 PO; +COZA25TA PO; +LEVA500T20 PO; +MOME17I EACH NARE; -VITA20003
[2017-05-11] MEDS ORDERED: [UNRECOGNIZED DRUG - CODE] PO (00:36)
[2017-05-11] MEDS ORDERED: ENOX30IN SQ (00:36)
[2017-05-11] MEDS ORDERED: ALPR.25 PO (00:36)
[2017-05-11] MEDS ORDERED: FLUT50SP EACH NARE (00:36)
[2017-05-11] MEDS ORDERED: oxygen NAS.CANULA (00:36)
[2017-05-11] MEDS ORDERED: FURO40TA PO (00:36)
[2017-05-11] MEDS ORDERED: ZOFR4TAB PO (00:36)
[2017-05-11] MEDS ORDERED: IPRASOL INH (00:36)
[2017-05-11] MEDS ORDERED: FLOR250C PO (00:36)
[2017-05-11] MEDS ORDERED: BENA25CA4 PO (00:36)
[2017-05-11] MEDS ORDERED: POTA8CAP PO (00:36)
--- NOTE | 2017-05-11 00:44 | PD ---
HPI Chief Complaint: Respiratory Distress Time Seen by Provider: 00:37 Travel History International Travel<30 days: No Contact w/Intl Traveler<30days: No Traveled to known affect area: No History of Present Illness HPI 67-year-old female presents to the emergency department by EMS transport from rehabilitation facility where she was recently admitted after being hospitalized for pneumonia and exacerbation of chronic respiratory illness with chronic fibrosis. Patient is in the care of Dr. Kellogg fellow but has not been seen by her acid changer since being discharged from the hospital. Patient is currently not on an antibiotic. Patient states that she is chronically on supplemental oxygen at all 4 L/m nasal cannula. Patient states she was asleep last evening and she awakened during the night and distress noticing that her oxygen tank was empty. Patient has a pulse oximeter that she keeps on her at all times and noted her sats were in the 50% range and started to drop into the 40s so she yelled for help and was placed on 2 L/m nasal cannula upon EMS arrival O2 saturations were only 50%. Patient was in distress so patient was placed on nonrebreather mask. Patient immediately improved her O2 saturation 100% work of breathing decreased. Patient presents to us with tachypnea diminished breath sounds and complaining of shortness of breath. Patient was taken off nonrebreather mask was identified to rapidly desaturate into the 70% range on O2 saturation. Patient denies any pleuritic chest pain or chest pain. Patient's had no fever chills. Patient denies productive cough. Patient's had no hemoptysis. Patient feels like her breathing is somewhat improved. PFSH Past Medical History Narrative Medical Asthma pulmonary fibrosis COPD pneumonia cholecystectomy hysterectomy; no tobacco use: Nursing notes reviewed Hx Anticoagulant Therapy: No Asthma: Yes Autoimmune Disease: No Anxiety: Yes Cancer: No Cardiovascular Problems: Yes Chemotherapy: No COPD: Yes Cerebrovascular Accident: No Cystic Fibrosis: Yes (idiopathic pulmonary fibrosis.) Diabetes: No Diminished Hearing: No Endocrine: No Gastrointestinal Disorders: Yes (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 HYATAL HERNIA) GERD: Yes Genitourinary: No Headaches: Yes Hypertension: Yes Immune Disorder: No Implanted Vascular Access Dvce: No Musculoskeletal: Yes Neurologic: No Reproductive: Yes (HYSTERECTOMY) Respiratory: Yes Immunizations Current: Yes Tetanus Vaccination: < 5 Years Influenza Vaccination: Yes ?: Not Menopausal: Yes Past Surgical History Abdominal Surgery: Yes (INCISIONAL HERNIA REPAIR) Cholecystectomy: Yes (1991) Gynecologic Surgery: Yes (HYSTERECTOMY 2003) Hysterectomy: Yes Pacemaker: No Tonsillectomy: Yes Other Surgery: Yes (hernia repair) Social History Alcohol Use: No Tobacco Use: No Substance Use: No Allergies-Medications (Allergen,Severity, Reaction): Coded Allergies: amoxicillin (Unverified Adverse Reaction, Intermediate, GI UPSET, 03/08/17) clavulanic acid (Unverified Adverse Reaction, Intermediate, GI UPSET, 03/08) Uncoded Allergies: SOME TAPES -RED SAMANTHA (Adverse Reaction, Mild, 03/08/17) LEAVES RED SAMANTHA Reported Meds & Prescriptions Reported Meds & Active Scripts Active Albuterol Neb (Albuterol Sulfate) 1.25 Mg/3 Ml Neb 1.25 Mg NEB Q4HR NEB PRN 30 Days Reported [oxygen] Unknown Dose VIDA.CANULA CONTINUOUS Florastor (Saccharomyces Boulardii) 250 Mg Cap 250 Mg PO BID Xanax (Alprazolam) 0.25 Mg Tab 0.25 Mg PO Q8H PRN Zofran (Ondansetron HCl) 4 Mg Tab 4 Mg PO Q6HR PRN Benadryl Allergy (Diphenhydramine HCl) 25 Mg Cap 1 Tab PO HS Duoneb (Ipratropium-Albuterol Neb) 0.5-2.5 Mg/3 Ml Neb 1 Nebule INH Q6HR NEB Ofev (Nintedanib) 100 Mg Cap 100 Mg PO Q12H Furosemide 40 Mg Tab 40 Mg PO EVERY OTHER DAY Potassium Chloride ER (Potassium Chloride) 8 Meq Cap 8 Meq PO DAILY Enoxaparin Inj (Enoxaparin Sodium) 30 Mg/0.3ML Syr 30 Mg SQ DAILY Fluticasone Nasal [place] 50 Mcg/Act Naspr 50 Mcg EACH NARE BID 50 mcg/spray D3 Maximum Strength (Cholecalciferol) 5,000 Unit Cap 50,000 Units PO WEEKLY Zantac (Ranitidine HCl) 150 Mg Tab 150 Mg PO DAILY Omeprazole 20 Mg Tab 20 Mg PO BID Prednisone 10 Mg Tab 10 Mg PO DAILY Review of Systems Except as stated in HPI: all other systems reviewed are Neg General / Constitutional: No: Fever, Chills HENT: No: Congestion Cardiovascular: No: Chest Pain or Discomfort Respiratory: Positive: Shortness of Breath, Wheezing Gastrointestinal: No: Abdominal Pain Genitourinary: No: Hematuria, Flank Pain Musculoskeletal: No: Myalgias, Arthralgias Skin: No Rash Neurologic: No: Weakness, Dizziness, Syncope Psychiatric: No: Anxiety Hematologic/Lymphatic: No: Lymph Node Enlargement Physical Exam Narrative GENERAL: Well-developed well-nourished female in respiratory distress SKIN: Warm and dry. HEAD: Normocephalic. EYES: No scleral icterus. No injection or drainage. NECK: Supple, trachea midline. No JVD or lymphadenopathy. CARDIOVASCULAR: Increased Regular rate and rhythm without murmurs, gallops, or rubs. RESPIRATORY: Breath sounds equal bilaterally diminished with bilateral crackles consistent with history of chronic fibrosis and expiratory wheeze. No accessory muscle use. GASTROINTESTINAL: Abdomen soft, non-tender, nondistended. MUSCULOSKELETAL: No cyanosis, or edema. BACK: Nontender without obvious deformity. No CVA tenderness. Data Data Last Documented VS Vital Signs Date Time Temp Pulse Resp B/P (MAP) Pulse Ox O2 Delivery O2 Flow Rate FiO2 05/11/17 02:52 92 65 05/11/17 02:05 92 16 185/103 (130) BiPAP 05/11/17 00:22 15.00 05/11/17 00:16 98.8 Orders Orders Complete Blood Count With Diff (05/11/17 00:37) Comprehensive Metabolic Panel (05/11/17 00:37) B-Type Natriuretic Peptide (05/11/17 00:37) D-Dimer (05/11/17 00:37) Act Partial Throm Time (Ptt) (05/11/17 00:37) Prothrombin Time / Inr (Pt) (05/11/17 00:37) Magnesium (Mg) (05/11/17 00:37) Ckmb (Isoenzyme) Profile (05/11/17 00:37) Troponin I (05/11/17 00:37) Arterial Blood Gas (Abg) (05/11/17 00:37) Urinalysis - C+S If Indicated (05/11/17 00:37) Blood Culture (05/11/17 00:37) Iv Access Insert/Monitor (05/11/17 00:37) Electrocardiogram (05/11/17 00:37) Ecg Monitoring (05/11/17 00:37) Oximetry (05/11/17 00:37) Oxygen Administration (05/11/17 00:37) Chest, Single Ap (05/11/17 00:37) Ct Pulmonary Angiogram (05/11/17 00:37) Sodium Chloride 0.9% Flush (Ns Flush) (05/11/17 00:45) Albuterol-Ipratropium Neb (Duoneb Neb) (05/11/17 00:45) Resp Bipap / Cpap Non Invas Vt (05/11/17 00:37) Arterial Blood Gas (Abg) (05/11/17 02:11) Methylprednisolone So Succ Inj (Solumedr (05/11/17 02:30) Albuterol-Ipratropium Neb (Duoneb Neb) (05/11/17 02:30) Admit Order (Ed Use Only) (05/11/17 ) Spring Upholsterer / Telemetry JEF.Q8H (05/11/17 02:46) Diet Heart Healthy (05/11/17 Breakfast) Activity Bed Rest (05/11/17 02:46) Notify Dr: Other (05/11/17 02:46) Labs Laboratory Tests Test 05/11/17 00:40 05/11/17 01:07 05/11/17 01:18 05/11/17 02:11 Blood Urea Nitrogen 11 MG/DL Creatinine 0.56 MG/DL Random Glucose 111 MG/DL Total Protein 7.2 GM/DL Albumin 2.7 GM/DL Calcium Level 9.4 MG/DL Magnesium Level 2.1 MG/DL Alkaline Phosphatase 62 U/L Aspartate Amino Transf (AST/SGOT) 38 U/L Alanine Aminotransferase (ALT/SGPT) 33 U/L Total Bilirubin 0.6 MG/DL Sodium Level 139 MEQ/L Potassium Level 4.8 MEQ/L Chloride Level 94 MEQ/L Carbon Dioxide Level 37.9 MEQ/L Anion Gap 7 MEQ/L Estimat Glomerular Filtration Rate 108 ML/MIN Total Creatine Kinase 73 U/L Troponin I LESS THAN 0.02 NG/ML B-Type Natriuretic Peptide 6 PG/ML White Blood Count 10.5 TH/MM3 Red Blood Count 4.31 MIL/MM3 Hemoglobin 12.8 GM/DL Hematocrit 39.9 % Mean Corpuscular Volume 92.5 FL Mean Corpuscular Hemoglobin 29.7 PG Mean Corpuscular Hemoglobin Concent 32.1 % Red Cell Distribution Width 15.1 % Platelet Count 204 TH/MM3 Mean Platelet Volume 7.8 FL Neutrophils (%) (Auto) 79.7 % Lymphocytes (%) (Auto) 9.5 % Monocytes (%) (Auto) 9.6 % Eosinophils (%) (Auto) 0.9 % Basophils (%) (Auto) 0.3 % Neutrophils # (Auto) 8.3 TH/MM3 Lymphocytes # (Auto) 1.0 TH/MM3 Monocytes # (Auto) 1.0 TH/MM3 Eosinophils # (Auto) 0.1 TH/MM3 Basophils # (Auto) 0.0 TH/MM3 CBC Comment DIFF FINAL Differential Comment Prothrombin Time 10.7 SEC Prothromb Time International Ratio 1.0 RATIO Activated Partial Thromboplast Time 25.2 SEC D-Dimer Quantitative (PE/DVT) 0.42 MG/L FEU Blood Gas Puncture Site RT RADIAL Blood Gas Patient Temperature 98.6 Blood Gas HCO3 43 mmol/L Blood Gas Base Excess 16.6 mmol/L Blood Gas Oxygen Saturation 97 % Arterial Blood pH 7.33 Arterial Blood Partial Pressure CO2 85 mmHg Arterial Blood Partial Pressure O2 171 mmHG Arterial Blood Oxygen Content 17.8 Vol % Arterial Blood Carboxyhemoglobin 1.5 % Arterial Blood Methemoglobin 0.7 % Blood Gas Hemoglobin 12.8 G/DL Oxygen Delivery Device BiPAP Blood Gas Ventilator Setting IPAP12/[id number] Blood Gas Inspired Oxygen 80 % [facility] Medical Decision Making Medical Screen Exam Complete: Yes Emergency Medical Condition: Yes Medical Record Reviewed: Yes Interpretation(s) EKG: Sinus tachycardia rate [address] elevation or injury pattern or ectopy noted CT PE: neg for PE CBC & BMP Diagram 05/11/17 00:40 Total Protein 7.2, Albumin 2.7 L, Calcium Level 9.4, Magnesium Level 2.1, Alkaline Phosphatase 62, Aspartate Amino Transf (AST/SGOT) 38 H, Alanine Aminotransferase (ALT/SGPT) 33, Total Bilirubin 0.6 05/11/17 01:07 Vital Signs Date Time Temp Pulse Resp B/P (MAP) Pulse Ox O2 Delivery O2 Flow Rate FiO2 05/11/17 02:52 92 65 05/11/17 02:05 92 16 185/103 (130) 98 BiPAP 05/11/17 01:43 99 60 05/11/17 00:55 95 BiPAP 80 05/11/17 00:55 95 80 05/11/17 00:22 32 98 Non-Rebreather 15.00 05/11/17 00:16 98.8 104 32 156/90 (112) 98 05/11/17 00:15 98 Non-Rebreather 15.00 ABG BiPAP 12/5/80% pH 7.338 PO2 85 PO2 171 bicarbonate 43 base excess 16 O2 sat 97% ABG BiPAP 15/5/60% pH 7.32 PCO2 87 PO2 98 bicarbonate 43 base excess 16 O2 saturation 95% Troponin I less than 0.02, not elevated; CK 73, not elevated; BNP 6, not elevated Differential Diagnosis Dyspnea, exacerbation COPD, pneumonia, CHF, PE, hypoxemic respiratory failure, hypercarbia, ACS, AL Narrative Course Patient placed on monitor technician IV access obtained and specimens collected and sent for resulting. Attempt at placing patient on nasal cannula and removing her from nonrebreather mask demonstrated rapid desaturation into the low 80s over 70% of O2 saturation placed back on nonrebreather mask. Patient given DuoNeb updrafts and steroid. EKG sinus tachycardia with no acute ST elevation or injury pattern ABG performed on BiPAP and identifies patient to have mild respiratory acidosis with hypercarbia therefore decreased FiO2 and continued on BiPAP with additional DuoNeb updraft Subsequent ABG identifies patient to have worsening respiratory acidosis persistent hypercapnia. CT bony angiogram ordered Patient's case discussed with on-call die repairer trimmer dies for admission Patient transported to ICU in route CT pulmonary angiogram performed no evidence of PE Critical Care Narrative Aggregate critical care time was 35 minutes. Time to perform other separately billable procedures was not included in the critical care time. My time did not include minutes spent treating any other patients simultaneously or on activities that did not directly contribute to the patient's treatment. The services I provided to this patient were to treat and/or prevent clinically significant deterioration that could result in: Respiratory arrest, arrhythmia, I provided critical care services requiring my management, as noted below: Chart data review, documentation time, medication orders and management, vital sign assessments/reviewing monitor data, ordering and reviewing lab tests, ordering and interpreting/reviewing x-rays and diagnostic studies, care of the patient and discussion of the patient with the admitting physicians. Physician Communication Physician Communication discussed with Dr Betancourt Diagnosis Primary Impression: Hypoxemic respiratory failure, chronic Additional Impression: Chronic idiopathic pulmonary fibrosis Admitting Information Admitting Physician Requests: Admit Janay Garcia MD May 11, 2017 00:44
[2017-05-11] MEDS ORDERED: SODIUM CHLORIDE 0.9% FLUSH 10 ML FLUSH IVF PRN (00:45)
[2017-05-11] MEDS: RESP: ALBUTEROL 2.5 MG/IPRATROPIUM 0.5 MG NEB (SCH) INH ×8 (01:03→23:37)
--- NOTE | 2017-05-11 01:17 | RADRPT ---
EXAM DATE/TIME: 05/11/2017 00:58 [facility] COMPARISON: CHEST SINGLE AP, March 08, 2017, 16:10. INDICATIONS : Shortness of breath. MEDICAL HISTORY : Pulmonary fibrosis SURGICAL HISTORY : None. ENCOUNTER: Initial ACUITY: 1 day PAIN SCORE: 0/10 LOCATION: Bilateral chest FINDINGS: There is extensive fairly symmetric bilateral primarily perihilar interstitial thickening. No definit e lobar consolidation or significant effusion. CONCLUSION: Grossly stable extensive bilateral frontal lung disease Irvin Tomlinson MD on May 11, 2017 at 1:15 Board Certified Radiologist. This report was verified electronically.
[2017-05-11 01:25] LABS: AUTOMATED NEUTROPHIL # 8.3 TH/MM3 (1.8-7.7); BASOPHIL % 0.3 % (0.0-2.0); EOSINOPHIL # 0.1 TH/MM3 (0-0.4); EOSINOPHIL % 0.9 % (0.0-4.0); HEMATOCRIT 39.9 % (35.0-46.0); HEMOGLOBIN 12.8 GM/DL (11.6-15.3); LYMPH % 9.5 % (9.0-44.0); MEAN CELL VOLUME 92.5 FL (80.0-100.0); MEAN CORPUSCULAR HEMOGLOBIN 29.7 PG (27.0-34.0); MEAN CORPUSCULAR HGB CONC 32.1 % (32.0-36.0); MEAN PLATELET VOLUME 7.8 FL (7.0-11.0); MONO % 9.6 % (0.0-8.0); NEUT % 79.7 % (16.0-70.0); PLATELET COUNT 204 TH/MM3 (150-450); RED BLOOD COUNT 4.31 MIL/MM3 (4.00-5.30); RED CELL DISTRIBUTION WIDTH 15.1 % (11.6-17.2); WHITE BLOOD COUNT 10.5 TH/MM3 (4.0-11.0)
[2017-05-11 01:38] LABS: D-DIMER 0.42 MG/L FEU (0.00-0.50); PROTHROMBIN TIME - PATIENT 10.7 SEC (9.8-11.6)
[2017-05-11 02:01] LABS: ALBUMIN 2.7 GM/DL (3.4-5.0); ALKALINE PHOSPHATASE 62 U/L (45-117); ALT (GPT) 33 U/L (10-53); AST (GOT) 38 U/L (15-37); BICARBONATE 37.9 MEQ/L (21.0-32.0); BLOOD UREA NITROGEN 11 MG/DL (7-18); CALCIUM 9.4 MG/DL (8.5-10.1); CHLORIDE 94 MEQ/L (98-107); CREATININE 0.56 MG/DL (0.50-1.00); GLOMERULAR FILTRATION RATE 108 ML/MIN (>89); GLUCOSE,RANDOM 111 MG/DL (74-106); MAGNESIUM 2.1 MG/DL (1.5-2.5); SODIUM (NA) 139 MEQ/L (136-145); TOTAL BILIRUBIN ADULT 0.6 MG/DL (0.2-1.0); TOTAL PROTEIN 7.2 GM/DL (6.4-8.2); TROPONIN I LESS THAN 0.02 NG/ML (0.02-0.05)
[2017-05-11] MEDS ORDERED: methylPREDNISolone SOD SUCC 125 MG/2 ML VIAL IV PUSH ONE (02:30)
[2017-05-11] MEDS ORDERED: RESP: ALBUTEROL 2.5 MG/IPRATROPIUM 0.5 MG NEB (SCH) NEB ONE (02:30)
[2017-05-11] MEDS ORDERED: CHLORHEXIDINE GLUCONATE 2 % 1 PACK (2 CLOTHS) TOP PRN (03:30)
[2017-05-11] MEDS ORDERED: BISACODYL 10 MG SUPP RECTAL PRN (03:30)
[2017-05-11] MEDS ORDERED: MAGNESIUM HYDROXIDE SUSP 30 ML CUP PO PRN (03:30)
[2017-05-11] MEDS ORDERED: SENNOSIDES 8.6 MG TAB PO PRN (03:30)
[2017-05-11] MEDS ORDERED: ACETAMINOPHEN 325 MG TAB PO PRN (03:30)
[2017-05-11] MEDS ORDERED: LACTULOSE SYRUP 20 GM/30 ML CUP PO PRN (03:30)
[2017-05-11] MEDS ORDERED: SODIUM CHLORIDE 0.9% FLUSH 10 ML FLUSH IV FLUSH PRN (03:30)
[2017-05-11] MEDS ORDERED: MORPHINE SULFATE 4 MG/ML INJ IV PUSH PRN (03:30)
[2017-05-11] MEDS ORDERED: LORazepam 2 MG/ML VIAL IV PUSH PRN (03:30)
[2017-05-11] MEDS ORDERED: MISCELLANEOUS NURSING INFORMATION XX SCH (03:30)
[2017-05-11] MEDS ORDERED: ONDANSETRON ODT 4 MG TAB PO PRN (03:45)
[2017-05-11] MEDS: CHLORHEXIDINE GLUCONATE 2 % 1 PACK (2 CLOTHS) TOP SCH (04:00)
[2017-05-11] MEDS ORDERED: IOHEXOL 350 MG/ML 10 ML VIAL (for RAD DIAG) IVCONTRAST ONE (04:43)
--- NOTE | 2017-05-11 04:49 | RADRPT ---
EXAM DATE/TIME: 05/11/2017 04:34 [facility] COMPARISON: CHEST SINGLE AP, May 11, 2017, 0:58. INDICATIONS : Respiratory distress. Evaluate for emboli. IV CONTRAST: 75 cc Omnipaque 350 (iohexol) IV RADIATION DOSE: 23.05 CTDIvol (mGy) MEDICAL HISTORY : Hypertension. Chronic obstructive pulmonary disease. Hernia, hiatal.Cystic fibrosis. SURGICAL HISTORY : None. ENCOUNTER: Initial ACUITY: 1 day PAIN SCALE: 0/10 LOCATION: chest TECHNIQUE: Volumetric scanning of the chest was performed using a pulmonary embolism protocol MIP images were re constructed. Using automated exposure control and adjustment of the mA and/or kV according to patien t size, radiation dose was kept as low as reasonably achievable to obtain optimal diagnostic quality images. DICOM format image data is available electronically for review and comparison. Follow-up recommendations for detected pulmonary nodules are based at a minimum on nodule size and pa tient risk factors according to Fleischner Society Guidelines. FINDINGS: PULMONARY ARTERIES: No filling defects are seen in the pulmonary arteries through the segmental level. LUNGS: Extensive fairly symmetric bilateral parenchymal lung disease PLEURAE: There is no pleural thickening or pleural effusion. MEDIASTINUM: Large hiatal hernia. Moderate enlargement of central mediastinal and hilar lymph nodes. MUSCULOSKELETAL: Within normal limits for patient age. MISCELLANEOUS: The visualized upper abdominal organs demonstrate no acute abnormality. CONCLUSION: Extensive parenchymal lung infiltrates. No evidence of pulmonary embolism. Nonspecific moderate media stinal and hilar chet enlargement Irvin Tomlinson MD on May 11, 2017 at 4:44 Board Certified Radiologist. This report was verified electronically.
--- NOTE | 2017-05-11 06:04 | HHI.HP ---
HPI Service Critical Care Medicine Primary Care Physician Mannie Morataya MD Admission Diagnosis respiratory failure w/hypoxemia; pulmonary fibrosis Diagnosis: Travel History International Travel<30 Days: No Contact w/Intl Traveler <30 Da: No Traveled to Known Affected Are: No History of Present Illness 67-year-old female presents from rehabilitation facility where she was recently admitted after being hospitalized for pneumonia and exacerbation of chronic chronic pulmonary fibrosis. Patient is chronically on supplemental oxygen at all 4 L/m nasal cannula, she was asleep last evening and she awakened during the night in distress noticing that her oxygen tank was empty. Patient has a pulse oximeter that she keeps on her at all times and noted her sats were in the 50% range and started to drop into the 40s so she yelled for help and was placed on 2 L/m nasal cannula. Upon EMS arrival O2 saturations were only 50%. Patient was placed on nonrebreather mask with immediately improved her O2 saturation 100% work of breathing decreased. She was transferred here with complains of tachypnea diminished breath sounds and shortness of breath. Off nonrebreather mask she rapidly desaturate into the 70% range. Patient denies any pleuritic chest pain or chest pain. Patient's had no fever chills. Patient denies productive cough. Patient's had no hemoptysis. Patient feels her breathing is improved. Review of Systems ROS Unobtainable patient in respiratory distress on facemask nonrebreather Past Family Social History Allergies: Coded Allergies: amoxicillin (Unverified Adverse Reaction, Intermediate, GI UPSET, 03/08/17) clavulanic acid (Unverified Adverse Reaction, Intermediate, GI UPSET, 03/08) Uncoded Allergies: SOME TAPES -RED SAMANTHA (Adverse Reaction, Mild, 03/08/17) LEAVES RED SAMANTHA Past Medical History 1. Chronic idiopathic pulmonary fibrosis on chronic oxygen. 2. She has gastroesophageal reflux disease and Zamorano's esophagus. 3. She had questionable history of asthma in the past. Denies any COPD or emphysema. 4. She was treated one time with lisinopril for hypertension but was taken off of it when she developed a cough and has not been on medicine since then. 5. She has had no heart disease, liver or kidney disease. No colon disease. No stroke or seizure no cancer. No diabetes. Past Surgical History 1. Has had a colonoscopy about 5 years ago. 2. She had a total abdominal hysterectomy and bilateral salpingo-oophorectomy. 3. Had an incisional hernia repair. 4. Tonsillectomy. 5. Laparoscopic cholecystectomy. Reported Medications Reported Meds & Active Scripts Active Albuterol Neb (Albuterol Sulfate) 1.25 Mg/3 Ml Neb 1.25 Mg NEB Q4HR NEB PRN 30 Days Reported [oxygen] Unknown Dose VIDA.CANULA CONTINUOUS Florastor (Saccharomyces Boulardii) 250 Mg Cap 250 Mg PO BID Xanax (Alprazolam) 0.25 Mg Tab 0.25 Mg PO Q8H PRN Zofran (Ondansetron HCl) 4 Mg Tab 4 Mg PO Q6HR PRN Benadryl Allergy (Diphenhydramine HCl) 25 Mg Cap 1 Tab PO HS Duoneb (Ipratropium-Albuterol Neb) 0.5-2.5 Mg/3 Ml Neb 1 Nebule INH Q6HR NEB Ofev (Nintedanib) 100 Mg Cap 100 Mg PO Q12H Furosemide 40 Mg Tab 40 Mg PO EVERY OTHER DAY Potassium Chloride ER (Potassium Chloride) 8 Meq Cap 8 Meq PO DAILY Enoxaparin Inj (Enoxaparin Sodium) 30 Mg/0.3ML Syr 30 Mg SQ DAILY Fluticasone Nasal [place] 50 Mcg/Act Naspr 50 Mcg EACH NARE BID 50 mcg/spray D3 Maximum Strength (Cholecalciferol) 5,000 Unit Cap 50,000 Units PO WEEKLY Zantac (Ranitidine HCl) 150 Mg Tab 150 Mg PO DAILY Omeprazole 20 Mg Tab 20 Mg PO BID Prednisone 10 Mg Tab 10 Mg PO DAILY Active Ordered Medications Current Medications Medications (Trade) Dose Ordered Sig/Edgar Route PRN Reason Start Time Stop Time Status Last Admin Dose Admin Alprazolam (Xanax) 0.25 mg Q8H PRN PO ANXIETY 05/11/17 03:30 Cholecalciferol (Vitamin D3) 50,000 units DAILY PO 05/11/17 09:00 Diphenhydramine HCl (Benadryl) 25 mg HS PO 05/11/17 21:00 Enoxaparin Sodium (Lovenox Inj) 30 mg DAILY SQ 05/11/17 09:00 Fluticasone Propionate (Flonase Vida Spr) 1 spray BID EACH NARE 05/11/17 09:00 Furosemide (Lasix) 40 mg EVERY OTHER DAY PO 05/11/17 09:00 Potassium Chloride (KCl) 8 meq DAILY PO 05/11/17 09:00 Prednisone (Deltasone) 10 mg DAILY PO 05/11/17 09:00 Patient Own Medication PT OWN MED: NON-FORMULARY D... Q12HR PO 05/11/17 09:00 Future Hold Ondansetron HCl (Zofran Odt) 4 mg Q6H PRN PO NAUSEA OR VOMITING 05/11/17 03:45 Famotidine (Pepcid) 20 mg DAILY PO 05/11/17 09:00 Sodium Chloride (NS Flush) 2 ml UNSCH PRN IV FLUSH FLUSH AFTER USING IV ACCESS 05/11/17 03:30 Sodium Chloride (NS Flush) 2 ml BID IV FLUSH 05/11/17 09:00 Acetaminophen (Tylenol) 650 mg Q6H PRN PO PAIN 1-5 AND/OR FEVER >101F 05/11/17 03:30 Morphine Sulfate (Morphine Inj) 2 mg Q2H PRN IV PUSH PAIN SCALE 6 TO 10 05/11/17 03:30 Lorazepam (Ativan Inj) 1 mg Q1H PRN IV PUSH Agitation/Sedation 05/11/17 03:30 Albuterol/ Ipratropium (Duoneb Neb) 1 ampule Q4HR NEB INH 05/11/17 04:00 05/11/17 04:15 Albuterol/ Ipratropium (Duoneb Neb) 1 ampule Q2HR NEB PRN INH WHEEZING 05/11/17 03:30 Miscellaneous Information 1 Q361D XX 05/11/17 03:30 Chlorhexidine Gluconate (Chlorhexidine 2% Cloth) 3 pack Taper DAILY@04 TOP 05/11/17 04:00 05/07/18 03:59 Chlorhexidine Gluconate (Chlorhexidine 2% Cloth) 3 pack UNSCH PRN TOP HYGIENIC CARE 05/11/17 03:30 Senna/Docusate Sodium (Alma-Colace) 1 tab BID PO 05/11/17 09:00 Magnesium Hydroxide (Milk Of Magnesia Liq) 30 ml Q12H PRN PO Mild constipation 05/11/17 03:30 Sennosides (Senokot) 17.2 mg Q12H PRN PO Moderate constipation 05/11/17 03:30 Bisacodyl (Dulcolax Supp) 10 mg DAILY PRN RECTAL SEVERE CONSITIPATION 05/11/17 03:30 Lactulose (Lactulose Liq) 30 ml DAILY PRN PO SEVERE CONSITIPATION 05/11/17 03:30 Family History No family history of pulmonary fibrosis Mother of heart failure at 82. She had diabetes. Father at 61 of stroke, had diabetes. Social History She quit smoking in 1991, smoked up to two packs a day and smoked for 20 years. Does not use alcohol. Lives alone. Never . 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 She does not currently work. Physical Exam Vital Signs Vital Signs Date Time Temp Pulse Resp B/P (MAP) Pulse Ox O2 Delivery O2 Flow Rate FiO2 05/11/17 05:33 95 55 05/11/17 05:25 97.6 106 24 157/75 (102) 100 05/11/17 04:36 98 15.00 100 05/11/17 04:16 98 55 05/11/17 03:38 98 9.00 55 05/11/17 03:08 102 16 153/70 (97) 96 BiPAP 5.00 65 05/11/17 02:52 92 65 05/11/17 02:05 92 16 185/103 (130) 98 BiPAP 05/11/17 01:43 99 60 05/11/17 00:55 95 BiPAP 80 05/11/17 00:55 95 80 05/11/17 00:22 32 98 Non-Rebreather 15.00 05/11/17 00:16 98.8 104 32 156/90 (112) 98 05/11/17 00:15 98 Non-Rebreather 15.00 Physical Exam GENERAL: Elderly appearing female on facemask nonrebreather. SKIN: Warm and dry. HEAD: Normocephalic. EYES: No scleral icterus. No injection or drainage. NECK: Supple, trachea midline. No JVD or lymphadenopathy. CARDIOVASCULAR: Regular rate and rhythm without murmurs, gallops, or rubs. RESPIRATORY: Breath sounds decreased bilaterally bilaterally. No accessory muscle use. GASTROINTESTINAL: Abdomen soft, non-tender, nondistended. MUSCULOSKELETAL: No cyanosis, or edema. BACK: Nontender without obvious deformity. NEURO EXAM: Mental Status: The patient is alert and oriented to person, place, and time with dyspneic speech. Cranial Nerves: Visual acuity intact bilaterally. Pupils are round, reactive to light. Tongue protrudes midline and moves symmetrically. Reflexes: Biceps, patellar, and Achilles are 2/4 bilaterally. No clonus. Laboratory Laboratory Tests Test 05/11/17 00:40 05/11/17 01:07 05/11/17 01:18 05/11/17 02:11 Blood Urea Nitrogen 11 Creatinine 0.56 Random Glucose 111 Total Protein 7.2 Albumin 2.7 Calcium Level 9.4 Magnesium Level 2.1 Alkaline Phosphatase 62 Aspartate Amino Transf (AST/SGOT) 38 Alanine Aminotransferase (ALT/SGPT) 33 Total Bilirubin 0.6 Sodium Level 139 Potassium Level 4.8 Chloride Level 94 Carbon Dioxide Level 37.9 Anion Gap 7 Estimat Glomerular Filtration Rate 108 Total Creatine Kinase 73 Troponin I LESS THAN 0.02 B-Type Natriuretic Peptide 6 White Blood Count 10.5 Red Blood Count 4.31 Hemoglobin 12.8 Hematocrit 39.9 Mean Corpuscular Volume 92.5 Mean Corpuscular Hemoglobin 29.7 Mean Corpuscular Hemoglobin Concent 32.1 Red Cell Distribution Width 15.1 Platelet Count 204 Mean Platelet Volume 7.8 Neutrophils (%) (Auto) 79.7 Lymphocytes (%) (Auto) 9.5 Monocytes (%) (Auto) 9.6 Eosinophils (%) (Auto) 0.9 Basophils (%) (Auto) 0.3 Neutrophils # (Auto) 8.3 Lymphocytes # (Auto) 1.0 Monocytes # (Auto) 1.0 Eosinophils # (Auto) 0.1 Basophils # (Auto) 0.0 CBC Comment DIFF FINAL Differential Comment Prothrombin Time 10.7 Prothromb Time International Ratio 1.0 Activated Partial Thromboplast Time 25.2 D-Dimer Quantitative (PE/DVT) 0.42 Blood Gas Puncture Site RT RADIAL RT RADIAL Blood Gas Patient Temperature 98.6 98.6 Blood Gas HCO3 43 43 Blood Gas Base Excess 16.6 16.6 Blood Gas Oxygen Saturation 97 95 Arterial Blood pH 7.33 7.32 Arterial Blood Partial Pressure CO2 85 87 Arterial Blood Partial Pressure O2 171 98 Arterial Blood Oxygen Content 17.8 17.0 Arterial Blood Carboxyhemoglobin 1.5 1.6 Arterial Blood Methemoglobin 0.7 0.6 Blood Gas Hemoglobin 12.8 12.7 Oxygen Delivery Device BiPAP BiPAP Blood Gas Ventilator Setting IPAP12/EPAP5 IPAP15/EPAP5 Blood Gas Inspired Oxygen 80 60 Test 05/11/17 05:15 Blood Gas Puncture Site LT RADIAL Blood Gas Patient Temperature 98.6 Blood Gas HCO3 41 Blood Gas Base Excess 14.4 Blood Gas Oxygen Saturation 97 Arterial Blood pH 7.29 Arterial Blood Partial Pressure CO2 90 Arterial Blood Partial Pressure O2 164 Arterial Blood Oxygen Content 17.8 Arterial Blood Carboxyhemoglobin 1.2 Arterial Blood Methemoglobin 1.1 Blood Gas Hemoglobin 12.9 Oxygen Delivery Device NRB Blood Gas Liter Flow 15 Blood Gas Inspired Oxygen 100 Date/Time Source Procedure Growth Status 05/11/17 00:45 Blood Peripheral Aerobic Blood Culture Pending Received 05/11/17 00:45 Blood Peripheral Anaerobic Blood Culture Pending Received Result Diagram: 05/11/17 0107 05/11/17 0040 Caprini VTE Risk Assessment Caprini VTE Risk Assessment: Mod/High Risk (score >= 2) Caprini Risk Assessment Model Point Value = 1 Point Value = 2 Point Value = 3 Point Value = 5 Age 41-60 Minor surgery BMI > 25 kg/m2 Swollen legs Varicose veins or History of unexplained or recurrent spontaneous Oral contraceptives or hormone replacement Sepsis (< 1 month) Serious lung disease, including pneumonia (< 1 month) Abnormal pulmonary function Acute myocardial infarction Congestive heart failure (< 1 month) History of inflammatory bowel disease Medical patient at bed rest Age 61-74 Arthroscopic surgery Major open surgery (> 45 min) Laparoscopic surgery (> 45 min) Malignancy Confined to bed (> 72 hours) Immobilizing plaster cast Central venous access Age >= 75 History of VTE Family history of VTE Factor V Leiden Prothrombin [id number] Lupus anticoagulant Anticardiolipin antibodies Elevated serum homocysteine Heparin-induced thrombocytopenia Other congenital or acquired thrombophilia Stroke (< 1 month) Elective arthroplasty Hip, pelvis, or leg fracture Acute spinal cord injury (< 1 month) Prophylaxis Regimen Total Risk Factor Score Risk Level Prophylaxis Regimen 0-1 Low Early ambulation 2 Moderate Order ONE of the following: *Sequential Compression Device (SCD) *Heparin 5000 units SQ BID 3-4 Higher Order ONE of the following medications: *Heparin 5000 units SQ TID *Enoxaparin/Lovenox 40 mg SQ daily (WT < 150 kg, CrCl > 30 mL/min) *Enoxaparin/Lovenox 30 mg SQ daily (WT < 150 kg, CrCl > 10-29 mL/min) *Enoxaparin/Lovenox 30 mg SQ BID (WT < 150 kg, CrCl > 30 mL/min) AND/OR *Sequential Compression Device (SCD) 5 or more Highest Order ONE of the following medications: *Heparin 5000 units SQ TID (Preferred with Epidurals) *Enoxaparin/Lovenox 40 mg SQ daily (WT < 150 kg, CrCl > 30 mL/min) *Enoxaparin/Lovenox 30 mg SQ daily (WT < 150 kg, CrCl > 10-29 mL/min) *Enoxaparin/Lovenox 30 mg SQ BID (WT < 150 kg, CrCl > 30 mL/min) AND *Sequential Compression Device (SCD) Assessment and Plan Assessment and Plan Respiratory failure - Underlying pulmonary fibrosis - By mouth steroids - DuoNeb scheduled and when necessary - Pulmonary consultation Hypertension - Lasix GERD - Pepcid Anxiety - Alprazolam - Lorazepam when necessary DVT GI prophylaxis - Teds SCDs - Lovenox - Pepcid Critical Care: The total critical care time was 35 minutes. Time to perform other separately billable procedures was not included in the critical care time. Chris Betancourt MD May 11, 2017 6:04 am
[2017-05-11] MEDS: FAMOTIDINE 20 MG TAB PO SCH (08:17)
[2017-05-11] MEDS: FUROSEMIDE 40 MG TAB PO SCH (08:17)
[2017-05-11] MEDS: DOCUSATE SODIUM 50 MG/SENNA 8.6 MG TAB PO SCH ×2 (08:17→22:09)
[2017-05-11] MEDS: ENOXAPARIN SODIUM 30 MG/0.3 ML SYRINGE SQ SCH (08:17)
[2017-05-11] MEDS ORDERED: CHOLECALCIFEROL (VIT D3) 5000 UNIT CAP PO SCH (09:00)
[2017-05-11] MEDS ORDERED: POTASSIUM CHLORIDE 8 MEQ CAP PO SCH (09:00)
[2017-05-11] MEDS ORDERED: NINTEDANIB 100 MG PO SCH (09:00)
[2017-05-11] MEDS ORDERED: predniSONE 10 MG TAB PO SCH (09:00)
[2017-05-11] MEDS ORDERED: NON-FORMULARY DRUG (Saccharomyces Boulardii (Florastor) 250 MG) PO SCH (09:00)
[2017-05-11] MEDS: ERGOCALCIFEROL (VIT D2) 50,000 UNIT CAP PO SCH (09:30)
[2017-05-11] MEDS: POTASSIUM CHLORIDE 8 MEQ CONTROLLED RELEASE TAB PO SCH (09:31)
[2017-05-11] MEDS: SODIUM CHLORIDE 0.9% FLUSH 10 ML FLUSH IV FLUSH SCH ×2 (09:31→22:08)
[2017-05-11] MEDS: FLUTICASONE PROPIONATE 50 MCG/ACT 16 GM NASAL SPRAY EACH NARE SCH ×2 (09:31→22:08)
--- NOTE | 2017-05-11 13:55 | EKG ---
Date Performed: 05/11/2017 Time Performed: 00:20:06 PTAGE: 67 years EKG: SINUS TACHYCARDIA VOLTAGE CRITERIA FOR LVH POSSIBLE ANTERIOR MYOCARDIAL INFARCTION ABNORMAL ECG PREVIOUS TRACING : 03/08/17 DOCTOR: Mirza Peck Interpretating Date/Time 05/11/2017 14:49:43
--- NOTE | 2017-05-11 18:26 | MB ---
cc: Pati DUNLAP M.D. DATE OF CONSULTATION 05/11/17 HISTORY OF PRESENT ILLNESS Ms. Mera is a 67-year-old white female with a known history of pulmonary fibrosis. I had seen her on a previous occasion in February when she presented with respiratory insufficiency. She was hospitalized for 24 hours and was really quite stable, discharged back to the regular care of Dr. Freitas who has followed her for several years. She has been on prednisone and OFEV. She was hospitalized at [facility] recently with pneumonia, was transferred to [facility] for rehab but last night apparently became disconnected from her oxygen, called for help but it was a time before they came. She became progressively more short of breath. Her O2 sats were very low, so they called 9-- and brought her to the hospital. On presentation chest x-ray and a CT scan revealed extensive pulmonary infiltrates with pulmonary fibrosis. Although we have old chest films to compare we had no CT scan. There does appear to be progression in her disease. A white count was normal at 10,000. Initial arterial blood gases on BiPap 80% FIO2 pO2 was 170, pH 7.33 and a pCO2 of 85. Subsequent blood gas was unchanged but she is currently on 4 liters of nasal oxygen which is her normal continuous oxygen flow and her sats are anywhere from 83-92%. She has dyspnea on minimal exertion but is comfortable at rest. BUN and creatinine were normal. BNP was low 6. MRSA nasal wash was negative and blood cultures are pending. At the time of this interview the patient is sitting up, very comfortable on 4 liters of oxygen, says she is back to her baseline and feels that she just came disconnected from her oxygen and could not breathe. MEDICATIONS Medications are reviewed in the EMR. For review of prior history please refer to my notes in February, none of that has changed. REVIEW OF SYSTEMS She has had no chest pain. No hemoptysis. No purulent sputum. No fever. No recent change in bowel habits and no increased edema. PHYSICAL EXAMINATION VITAL SIGNS: 97 degrees, 120/60, pulse is 100, respirations are 24, O2 sat currently 94% on 4 liters. HEENT: Mucous membranes are moist. NECK: Neck veins are flat. LUNGS: Bilateral basilar rales without congestion. HEART: No harsh murmur. No audible S3. ABDOMEN: Very obese abdomen. EXTREMITIES: Legs are large but there is no edema. No pitting edema and no cyanosis, on O2. DISCUSSION Ms. Mera has what appears to be advanced pulmonary fibrosis, recent pneumonia but is sitting up in the chair comfortable on 4 liters, says that she feels like she is back to her baseline. It is difficult to know without other old films whether or not this is a real change but she is certainly comfortable and feels like things have stabilized. In light of clinical stability I would suggest we continue her with her nebulized treatments, although a little less frequently, prophylactic Lovenox and she has been on 10 milligrams of prednisone, will continue that assuming that she remains stable. In light of the severity of her underlying disease I suggest we monitor her here at least another 24 hours and then I suggested that she talk to case management also about where she might like to be placed. If she were placed in a rehab facility closer to [facility] she might be more apt to go back to [facility] where her regular physicians are as well. Further diagnostic and/or therapeutic intervention will depend on her ongoing clinical course. RMD ELA Castañeda/DERICK /4:39 PM /6:12 PM
[2017-05-11] MEDS: ALPRAZolam 0.25 MG TAB PO PRN ×2 (20:46→20:48)
[2017-05-11] MEDS: diphenhydrAMINE HCL 25 MG CAP PO SCH (22:08)
[2017-05-12] VITALS (29 sets, daily range): BP systolic 137–185; BP diastolic 69–93; PULSE 74–114; RESP 19–63; TEMP 97.2–99; O2SAT 84–99
[2017-05-12] MEDS: RESP: ALBUTEROL 2.5 MG/IPRATROPIUM 0.5 MG NEB (SCH) INH (03:15)
[2017-05-12] MEDS: CHLORHEXIDINE GLUCONATE 2 % 1 PACK (2 CLOTHS) TOP SCH (04:00)
[2017-05-12 06:01] LABS: AUTOMATED NEUTROPHIL # 8.1 TH/MM3 (1.8-7.7); BASOPHIL % 0.2 % (0.0-2.0); EOSINOPHIL % 0.1 % (0.0-4.0); HEMATOCRIT 38.6 % (35.0-46.0); HEMOGLOBIN 12.5 GM/DL (11.6-15.3); LYMPH % 10.1 % (9.0-44.0); LYMPHOCYTE # 1.1 TH/MM3 (1.0-4.8); MEAN CELL VOLUME 94.1 FL (80.0-100.0); MEAN CORPUSCULAR HEMOGLOBIN 30.3 PG (27.0-34.0); MEAN CORPUSCULAR HGB CONC 32.2 % (32.0-36.0); MEAN PLATELET VOLUME 8.1 FL (7.0-11.0); MONO % 12.3 % (0.0-8.0); MONOCYTE # 1.3 TH/MM3 (0-0.9); NEUT % 77.3 % (16.0-70.0); PLATELET COUNT 176 TH/MM3 (150-450); RED BLOOD COUNT 4.11 MIL/MM3 (4.00-5.30); RED CELL DISTRIBUTION WIDTH 15.6 % (11.6-17.2); WHITE BLOOD COUNT 10.5 TH/MM3 (4.0-11.0)
[2017-05-12 06:32] LABS: ALKALINE PHOSPHATASE 55 U/L (45-117); ALT (GPT) 27 U/L (10-53); PHOSPHORUS 3.7 MG/DL (2.5-4.9); TOTAL BILIRUBIN ADULT 0.2 MG/DL (0.2-1.0); TOTAL PROTEIN 6.4 GM/DL (6.4-8.2)
[2017-05-12 06:33] LABS: ALBUMIN 2.6 GM/DL (3.4-5.0); AST (GOT) 15 U/L (15-37); BICARBONATE 41.7 MEQ/L (21.0-32.0); BLOOD UREA NITROGEN 21 MG/DL (7-18); CALCIUM 9.2 MG/DL (8.5-10.1); CHLORIDE 95 MEQ/L (98-107); CREATININE 0.58 MG/DL (0.50-1.00); GLOMERULAR FILTRATION RATE 104 ML/MIN (>89); GLUCOSE,RANDOM 98 MG/DL (74-106); MAGNESIUM 2.5 MG/DL (1.5-2.5); SODIUM (NA) 143 MEQ/L (136-145)
[2017-05-12] MEDS ORDERED: methylPREDNISolone SOD SUCC 125 MG/2 ML VIAL IV PUSH ONE (08:30)
[2017-05-12] MEDS: SODIUM CHLORIDE 0.9% FLUSH 10 ML FLUSH IV FLUSH SCH ×2 (08:31→21:15)
[2017-05-12] MEDS: ENOXAPARIN SODIUM 30 MG/0.3 ML SYRINGE SQ SCH (08:31)
[2017-05-12] MEDS: FLUTICASONE PROPIONATE 50 MCG/ACT 16 GM NASAL SPRAY EACH NARE SCH ×2 (08:31→21:15)
[2017-05-12] MEDS: FAMOTIDINE 20 MG TAB PO SCH (08:31)
[2017-05-12] MEDS: POTASSIUM CHLORIDE 8 MEQ CONTROLLED RELEASE TAB PO SCH (08:31)
[2017-05-12] MEDS: DOCUSATE SODIUM 50 MG/SENNA 8.6 MG TAB PO SCH ×2 (08:31→21:00)
--- NOTE | 2017-05-12 08:31 | HHI.PR ---
Subjective Remarks pt says her breathing is worse this morning. she is more labored. in chair for breakfast. Objective Vitals heart reg lung diminished air mvmt basilar crackles. abd s/nt ext no pitting. 4lnc Vital Signs Date Time Temp Pulse Resp B/P (MAP) Pulse Ox O2 Delivery O2 Flow Rate FiO2 05/12/17 06:00 89 05/12/17 06:00 75 05/12/17 04:28 94 45 05/12/17 04:00 82 05/12/17 04:00 98.0 88 34 161/72 (101) 94 05/12/17 02:00 79 05/12/17 02:00 74 05/12/17 00:00 99.0 88 24 146/81 (102) 97 05/12/17 00:00 88 05/11/17 23:48 94 45 05/11/17 22:00 112 05/11/17 20:22 93 Nasal Cannula 6.00 05/11/17 20:00 98.0 112 24 177/73 (107) 98 05/11/17 20:00 110 05/11/17 18:00 97 05/11/17 17:00 100 31 146/74 (98) 94 05/11/17 17:00 100 05/11/17 16:30 101 34 145/71 (95) 96 05/11/17 16:30 101 05/11/17 16:00 107 42 145/78 (100) 89 05/11/17 16:00 107 05/11/17 15:00 103 05/11/17 15:00 95 Nasal Cannula 4.00 05/11/17 14:30 101 05/11/17 14:00 110 49 133/72 (92) 83 05/11/17 14:00 110 05/11/17 13:30 106 42 122/59 (80) 92 05/11/17 13:30 106 05/11/17 13:00 106 38 140/65 (90) 91 05/11/17 13:00 106 05/11/17 12:30 114 05/11/17 12:30 114 48 143/71 (95) 89 05/11/17 12:00 114 05/11/17 12:00 114 47 131/69 (89) 89 Result Diagram: 05/12/17 0430 05/12/17 0430 A/P Problem List: (1) Chronic idiopathic pulmonary fibrosis ICD Codes: J84.112 - Idiopathic pulmonary fibrosis Status: Acute Plan: 1. advanced pulmonary fibrosis with acute flare/dyspnea. plan: pt says she is worse today and usually responds to iv steroids. will convert po prednisone to iv solumedrol today cont o2 cont albuterol nebs. she wants me to stop the ipratroprium resume her TKI. plan for snf once stable. (2) Hypoxemic respiratory failure, chronic ICD Codes: J96.11 - Chronic respiratory failure with hypoxia Status: Acute (3) Hypertension ICD Codes: I10 - Essential (primary) hypertension Status: Chronic All Zuniga MD May 12, 2017 08:31
[2017-05-12] MEDS: OFEV 100 MG PO SCH ×2 (08:37→17:10)
[2017-05-12] MEDS ORDERED: cloNIDine HCL 0.1 MG TAB PO PRN (08:45)
[2017-05-12] MEDS: RESP: ALBUTEROL 1.25 MG/3 ML NEB (SCH) NEB ×4 (09:29→22:47)
[2017-05-12] MEDS ORDERED: ALUMINUM/MAGNESIUM/SIMETH 30 ML CUP PO PRN (10:15)
[2017-05-12] MEDS ORDERED: RANITIDINE HCL SYRUP 150 MG/10 ML UDC PO ONE (11:30)
[2017-05-12] MEDS: methylPREDNISolone SOD SUCC 125 MG/2 ML VIAL IV PUSH SCH ×2 (14:17→21:14)
[2017-05-12] MEDS: ALPRAZolam 0.25 MG TAB PO PRN (18:01)
[2017-05-12] MEDS ORDERED: RANITIDINE HCL SYRUP 150 MG/10 ML UDC PO SCH (21:00)
[2017-05-12] MEDS: diphenhydrAMINE HCL 25 MG CAP PO SCH ×2 (21:00→21:16)
[2017-05-13] VITALS (10 sets, daily range): BP systolic 153–191; BP diastolic 71–95; PULSE 93–109; RESP 18–31; TEMP 97.1–98.9; O2SAT 88–97
[2017-05-13] MEDS: methylPREDNISolone SOD SUCC 125 MG/2 ML VIAL IV PUSH SCH ×4 (01:58→21:07)
[2017-05-13] MEDS: CHLORHEXIDINE GLUCONATE 2 % 1 PACK (2 CLOTHS) TOP SCH (04:00)
[2017-05-13] MEDS: RESP: ALBUTEROL 1.25 MG/3 ML NEB (SCH) NEB ×4 (05:02→20:22)
[2017-05-13] MEDS: RESP: ALBUTEROL 2.5 MG/IPRATROPIUM 0.5 MG NEB (PRN) INH ×3 (07:48→11:10)
--- NOTE | 2017-05-13 08:40 | HHI.PR ---
Subjective Remarks sob. not back to baseline. she asks about hospice care. diarrhea. heartburn. Objective Vitals heart reg lung crackles bilaterally abd s/nt ext no pitting. Vital Signs Date Time Temp Pulse Resp B/P (MAP) Pulse Ox O2 Delivery O2 Flow Rate FiO2 05/13/17 05:04 95 Nasal Cannula 4.00 05/13/17 04:20 97.1 94 18 158/75 (102) 94 05/12/17 23:55 Nasal Cannula 5.00 Humidified 05/12/17 23:55 97.2 94 19 144/83 (103) 93 05/12/17 22:47 93 Nasal Cannula 5.00 05/12/17 21:38 89 05/12/17 21:22 97.4 92 19 138/80 (99) 93 05/12/17 21:22 Nasal Cannula 5.00 Humidified 05/12/17 18:03 111 05/12/17 18:00 109 05/12/17 16:00 108 05/12/17 16:00 98.6 05/12/17 14:30 100 05/12/17 14:30 100 39 137/71 (93) 95 05/12/17 14:00 107 05/12/17 14:00 107 42 151/76 (101) 86 05/12/17 13:30 114 05/12/17 13:30 114 24 141/73 (95) 99 05/12/17 13:00 104 05/12/17 13:00 104 40 141/69 (93) 99 05/12/17 12:30 102 47 140/93 (109) 95 05/12/17 12:30 102 05/12/17 12:01 97 41 141/73 (95) 98 05/12/17 12:01 97 05/12/17 12:00 97 05/12/17 12:00 97 40 99 05/12/17 11:31 99 40 149/70 (96) 97 05/12/17 11:31 99 05/12/17 11:00 91 37 142/73 (96) 98 05/12/17 11:00 91 05/12/17 10:01 101 05/12/17 10:01 101 42 185/79 (114) 95 05/12/17 10:00 102 05/12/17 10:00 102 42 94 05/12/17 09:31 92 05/12/17 09:31 92 42 162/79 (106) 96 05/12/17 09:29 96 Nasal Cannula 4.00 05/12/17 09:01 88 05/12/17 09:01 88 39 150/75 (100) 95 Result Diagram: 05/12/1742905/12/17429 A/P Problem List: (1) Chronic idiopathic pulmonary fibrosis ICD Codes: J84.112 - Idiopathic pulmonary fibrosis Status: Acute Plan: 1. advanced pulmonary fibrosis with acute flare/dyspnea. plan: Pt says not quite back to baseline. we will give iv steroids today and convert to po with taper back to her baseline dose tomorrow. plan for d/c to snf Monday morning She tells me that she was thinking of getting hospice involved [facility]...because there was possibility she would move to [facility]. She requested [facility] consult while admitted here. consult placed. cont o2 cont albuterol nebs. she wants me to stop the ipratroprium resume her TKI. e. (2) Hypoxemic respiratory failure, chronic ICD Codes: J96.11 - Chronic respiratory failure with hypoxia Status: Acute (3) Hypertension ICD Codes: I10 - Essential (primary) hypertension Status: Chronic All Zuniga MD May 13, 2017 08:40
[2017-05-13] MEDS: POTASSIUM CHLORIDE 8 MEQ CONTROLLED RELEASE TAB PO SCH (08:42)
[2017-05-13] MEDS: DOCUSATE SODIUM 50 MG/SENNA 8.6 MG TAB PO SCH ×2 (08:43→21:00)
[2017-05-13] MEDS ORDERED: LOPERAMIDE HCL 2 MG CAP PO PRN (08:45)
[2017-05-13] MEDS ORDERED: cloNIDine HCL 0.1 MG TAB PO PRN (08:45)
[2017-05-13] MEDS: OFEV 100 MG PO SCH ×2 (08:47→18:30)
[2017-05-13] MEDS: ENOXAPARIN SODIUM 30 MG/0.3 ML SYRINGE SQ SCH (08:48)
[2017-05-13] MEDS: FUROSEMIDE 40 MG TAB PO SCH (08:56)
[2017-05-13] MEDS: SODIUM CHLORIDE 0.9% FLUSH 10 ML FLUSH IV FLUSH SCH ×2 (08:57→21:07)
[2017-05-13] MEDS: FLUTICASONE PROPIONATE 50 MCG/ACT 16 GM NASAL SPRAY EACH NARE SCH ×2 (08:57→21:07)
[2017-05-13] MEDS ORDERED: LOPERAMIDE HCL 2 MG CAP PO ONE (09:30)
[2017-05-13] MEDS: PANTOPRAZOLE SOD 40 MG DELAYED RELEASE TAB PO SCH ×2 (10:26→18:30)
[2017-05-13] MEDS ORDERED: RANITIDINE HCL SYRUP 150 MG/10 ML UDC PO ONE (11:00)
--- NOTE | 2017-05-13 15:37 | HHI.PR ---
Subjective Remarks ALERT LESS SO ON O2 Objective Vital Signs Date Time Temp Pulse Resp B/P (MAP) Pulse Ox O2 Delivery O2 Flow Rate FiO2 05/13/17 12:00 98.0 105 18 164/76 (105) 96 05/13/17 08:15 97 Nasal Cannula 4.00 05/13/17 08:05 102 05/13/17 08:00 98.7 109 31 191/88 (122) 88 05/13/17 07:00 Nasal Cannula 5.00 05/13/17 05:04 95 Nasal Cannula 4.00 05/13/17 04:20 97.1 94 18 158/75 (102) 94 05/12/17 23:55 Nasal Cannula 5.00 Humidified 05/12/17 23:55 97.2 94 19 144/83 (103) 93 05/12/17 22:47 93 Nasal Cannula 5.00 05/12/17 21:38 89 05/12/17 21:22 97.4 92 19 138/80 (99) 93 05/12/17 21:22 Nasal Cannula 5.00 Humidified 05/12/17 18:03 111 05/12/17 18:00 109 05/12/17 16:00 108 05/12/17 16:00 98.6 I/O 05/12/17 05/12/17 05/12/17 05/13/17 05/13/17 05/13/17 07:00 15:00 23:00 07:00 15:00 23:00 Intake Total 200 ml 840 ml 120 ml Output Total 250 ml 1000 ml 150 ml Balance -50 ml -160 ml -30 ml Intake Oral 200 ml 840 ml 120 ml Output Urine Total 250 ml 1000 ml 150 ml # Bowel Movements 1 0 Result Diagram: 05/12/1742905/12/17 043 Objective Remarks GENERAL: SKIN: Warm and dry. HEAD: Atraumatic. Normocephalic. EYES: Pupils equal and round. No scleral icterus. No injection or drainage. ENT: No nasal bleeding or discharge. Mucous membranes pink and moist. NECK: Trachea midline. No JVD. CARDIOVASCULAR: Regular rate and rhythm. RESPIRATORY: No accessory muscle use. Clear to auscultation. Breath sounds equal bilaterally. GASTROINTESTINAL: Abdomen soft, non-tender, nondistended. Hepatic and splenic margins not palpable. MUSCULOSKELETAL: Extremities without clubbing, cyanosis, or edema. No obvious deformities. NEUROLOGICAL: Awake and alert. No obvious cranial nerve deficits. Motor grossly within normal limits. Five out of 5 muscle strength in the arms and legs. Normal speech. PSYCHIATRIC: Appropriate mood and affect; insight and judgment normal. Assessment and Plan Assessment and Plan RESPIRATORY FAILURE PULM FIBRSIS PLANCONTINUE O2 BRONCHODILATOR THERAPY Discharge Planning Laboratory Tests Test 05/11/17 00:40 05/11/17 01:07 05/11/17 01:18 05/11/17 02:11 Random Glucose 111 MG/DL (74-106) Albumin 2.7 GM/DL (3.4-5.0) Aspartate Amino Transf (AST/SGOT) 38 U/L (15-37) Chloride Level 94 MEQ/L (98-107) Carbon Dioxide Level 37.9 MEQ/L (21.0-32.0) Troponin I LESS THAN 0.02 NG/ML Neutrophils (%) (Auto) 79.7 % (16.0-70.0) Monocytes (%) (Auto) 9.6 % (0.0-8.0) Neutrophils # (Auto) 8.3 TH/MM3 (1.8-7.7) Monocytes # (Auto) 1.0 TH/MM3 (0-0.9) Blood Gas HCO3 43 mmol/L (22-26) 43 mmol/L (22-26) Blood Gas Base Excess 16.6 mmol/L (-2-2) 16.6 mmol/L (-2-2) Arterial Blood pH 7.33 (7.380-7.420) 7.32 (7.380-7.420) Arterial Blood Partial Pressure CO2 85 mmHg (38-42) 87 mmHg (38-42) Arterial Blood Partial Pressure O2 171 mmHG (61-120) Test 05/11/17 05:00 05/11/17 05:15 05/12/17 04:30 Blood Gas HCO3 41 mmol/L (22-26) Blood Gas Base Excess 14.4 mmol/L (-2-2) Arterial Blood pH 7.29 (7.380-7.420) Arterial Blood Partial Pressure CO2 90 mmHg (38-42) Arterial Blood Partial Pressure O2 164 mmHg (61-120) Neutrophils (%) (Auto) 77.3 % (16.0-70.0) Monocytes (%) (Auto) 12.3 % (0.0-8.0) Neutrophils # (Auto) 8.1 TH/MM3 (1.8-7.7) Monocytes # (Auto) 1.3 TH/MM3 (0-0.9) Blood Urea Nitrogen 21 MG/DL (7-18) Albumin 2.6 GM/DL (3.4-5.0) Chloride Level 95 MEQ/L (98-107) Carbon Dioxide Level 41.7 MEQ/L (21.0-32.0) Armani Lomeli MD May 13, 2017 15:37
[2017-05-13 16:14] LABS: BACTERIA, URINE MANY /hpf; BILIRUBIN, URINE NEG (NEG); BLOOD, URINE LARGE (NEG); GLUCOSE,URINE NEG (NEG); HYALINE CAST, URINE 41 /lpf (RARE); KETONE, URINE NEG (NEG); MUCUS URINE FEW /lpf (OCC); NITRITE,URINE NEG (NEG); SQUAMOUS EPITHELIAL CELL URINE 3 /hpf (0-5); URINE COLOR YELLOW (YELLW/STRAW); URINE LEUKOCYTE ESTERASE MOD (NEG)
[2017-05-13] MEDS: RANITIDINE HCL SYRUP 150 MG/10 ML UDC PO SCH (18:30)
[2017-05-13] MEDS: diphenhydrAMINE HCL 25 MG CAP PO SCH (21:00)
[2017-05-14] VITALS (10 sets, daily range): BP systolic 130–175; BP diastolic 61–86; PULSE 64–87; RESP 16–18; TEMP 97.2–97.9; O2SAT 91–100
[2017-05-14] MEDS: methylPREDNISolone SOD SUCC 125 MG/2 ML VIAL IV PUSH SCH (01:42)
[2017-05-14] MEDS: RESP: ALBUTEROL 1.25 MG/3 ML NEB (SCH) NEB ×4 (03:44→20:25)
[2017-05-14] MEDS: CHLORHEXIDINE GLUCONATE 2 % 1 PACK (2 CLOTHS) TOP SCH (04:00)
[2017-05-14] MEDS: PANTOPRAZOLE SOD 40 MG DELAYED RELEASE TAB PO SCH ×2 (06:18→21:15)
[2017-05-14] MEDS: OFEV 100 MG PO SCH ×2 (06:19→09:47)
--- NOTE | 2017-05-14 07:57 | HHI.PR ---
Subjective Remarks feels close to baseline. ok with [facility] tomorrow. Objective Vitals heart reg lung bronson crackles abd s/nt ext no edema Vital Signs Date Time Temp Pulse Resp B/P (MAP) Pulse Ox O2 Delivery O2 Flow Rate FiO2 05/14/17 04:00 Nasal Cannula 4.00 Humidified 05/14/17 04:00 97.8 85 16 175/86 (115) 96 05/14/17 00:00 Nasal Cannula 4.00 Humidified 05/14/17 00:00 97.5 78 17 157/80 (105) 94 05/13/17 20:25 90 Nasal Cannula 5.00 05/13/17 20:05 93 05/13/17 20:00 97.9 107 18 153/95 (114) 96 05/13/17 20:00 Nasal Cannula 4.00 Humidified 05/13/17 18:45 98.9 95 20 154/71 (98) 93 05/13/17 12:00 98.0 105 18 164/76 (105) 96 05/13/17 08:15 97 Nasal Cannula 4.00 05/13/17 08:05 102 05/13/17 08:00 98.7 109 31 191/88 (122) 88 Result Diagram: 05/12/17 0430 05/12/17 0430 A/P Problem List: (1) Chronic idiopathic pulmonary fibrosis ICD Codes: J84.112 - Idiopathic pulmonary fibrosis Status: Acute Plan: 1. advanced pulmonary fibrosis with acute flare/dyspnea. plan: back to baseline convert solumedrol to prednisone taper cont nebs o2 discussed with hospice and considering dnr..not quite ready d/c to snf in AM. resume her TKI. f/u urine cx..pending. (2) Hypoxemic respiratory failure, chronic ICD Codes: J96.11 - Chronic respiratory failure with hypoxia Status: Acute (3) Hypertension ICD Codes: I10 - Essential (primary) hypertension Status: Chronic All Zuniga MD May 14, 2017 07:57
[2017-05-14] MEDS ORDERED: PRED10 PO (08:05)
[2017-05-14] MEDS ORDERED: ALBU1.25 NEB (08:05)
[2017-05-14] MEDS ORDERED: ALPR.25 PO (08:05)
[2017-05-14] MEDS ORDERED: FURO1TAB62 PO (08:10)
--- NOTE | 2017-05-14 08:14 | HHI.DCPOC ---
Discharge Care Plan Diagnosis: (1) Chronic idiopathic pulmonary fibrosis (2) Hypoxemic respiratory failure, chronic Goals to Promote Your Health * To prevent worsening of your condition and complications * To maintain your health at the optimal level Directions to Meet Your Goals Take your medications as prescribed Follow your dietary instruction Follow activity as directed Keep your appointments as scheduled Take your immunizations and boosters as scheduled If your symptoms worsen call your PCP, if no PCP go to Urgent Care Center or Emergency Room Smoking is Dangerous to Your Health. Avoid second hand smoke Call the 24-hour hour crisis hotline for domestic abuse at All Zuniga MD May 14, 2017 08:14
--- NOTE | 2017-05-14 08:14 | HHI.DCPOC ---
Discharge Care Plan Diagnosis: (1) Chronic idiopathic pulmonary fibrosis (2) Hypoxemic respiratory failure, chronic Goals to Promote Your Health * To prevent worsening of your condition and complications * To maintain your health at the optimal level Directions to Meet Your Goals Take your medications as prescribed Follow your dietary instruction Follow activity as directed Keep your appointments as scheduled Take your immunizations and boosters as scheduled If your symptoms worsen call your PCP, if no PCP go to Urgent Care Center or Emergency Room Smoking is Dangerous to Your Health. Avoid second hand smoke Call the 24-hour hour crisis hotline for domestic abuse at All Zuniga MD May 14, 2017 08:14
--- NOTE | 2017-05-14 08:14 | HHI.DCPOC ---
Discharge Care Plan Diagnosis: (1) Chronic idiopathic pulmonary fibrosis (2) Hypoxemic respiratory failure, chronic Goals to Promote Your Health * To prevent worsening of your condition and complications * To maintain your health at the optimal level Directions to Meet Your Goals Take your medications as prescribed Follow your dietary instruction Follow activity as directed Keep your appointments as scheduled Take your immunizations and boosters as scheduled If your symptoms worsen call your PCP, if no PCP go to Urgent Care Center or Emergency Room Smoking is Dangerous to Your Health. Avoid second hand smoke Call the 24-hour hour crisis hotline for domestic abuse at All Zuniga MD May 14, 2017 08:14
[2017-05-14] MEDS: SODIUM CHLORIDE 0.9% FLUSH 10 ML FLUSH IV FLUSH SCH ×2 (09:00→21:15)
[2017-05-14] MEDS: FLUTICASONE PROPIONATE 50 MCG/ACT 16 GM NASAL SPRAY EACH NARE SCH ×2 (09:00→21:14)
[2017-05-14] MEDS: DOCUSATE SODIUM 50 MG/SENNA 8.6 MG TAB PO SCH ×2 (09:00→21:00)
[2017-05-14] MEDS: predniSONE 20 MG TAB PO SCH (09:41)
[2017-05-14] MEDS: POTASSIUM CHLORIDE 8 MEQ CONTROLLED RELEASE TAB PO SCH (09:42)
[2017-05-14] MEDS: ENOXAPARIN SODIUM 30 MG/0.3 ML SYRINGE SQ SCH (09:42)
[2017-05-14] MEDS ORDERED: CIPROFLOXACIN 250 MG TAB PO ONE (14:15)
--- NOTE | 2017-05-14 16:42 | HHI.PR ---
Subjective Remarks ALERT LESS SO ON O2 Objective Vital Signs Date Time Temp Pulse Resp B/P (MAP) Pulse Ox O2 Delivery O2 Flow Rate FiO2 05/14/17 12:00 97.2 64 18 131/61 (84) 91 05/14/17 10:37 95 Nasal Cannula 4.00 05/14/17 08:05 73 05/14/17 08:00 97.9 71 18 130/69 (89) 95 05/14/17 07:00 Nasal Cannula 4.00 05/14/17 04:00 Nasal Cannula 4.00 Humidified 05/14/17 04:00 97.8 85 16 175/86 (115) 96 05/14/17 00:00 Nasal Cannula 4.00 Humidified 05/14/17 00:00 97.5 78 17 157/80 (105) 94 05/13/17 20:25 90 Nasal Cannula 5.00 05/13/17 20:05 93 05/13/17 20:00 97.9 107 18 153/95 (114) 96 05/13/17 20:00 Nasal Cannula 4.00 Humidified 05/13/17 18:45 98.9 95 20 154/71 (98) 93 I/O 05/13/17 05/13/17 05/13/17 05/14/17 05/14/17 05/14/17 07:00 15:00 23:00 07:00 15:00 23:00 Intake Total 120 ml 480 ml 120 ml Output Total 150 ml 350 ml Balance -30 ml 130 ml 120 ml Intake Oral 120 ml 480 ml 120 ml Output Urine Total 150 ml 350 ml # Voids 2 # Bowel Movements 0 1 Result Diagram: 05/12/1742905/12/17429 Objective Remarks GENERAL: SKIN: Warm and dry. HEAD: Atraumatic. Normocephalic. EYES: Pupils equal and round. No scleral icterus. No injection or drainage. ENT: No nasal bleeding or discharge. Mucous membranes pink and moist. NECK: Trachea midline. No JVD. CARDIOVASCULAR: Regular rate and rhythm. RESPIRATORY: No accessory muscle use. Clear to auscultation. Breath sounds equal bilaterally. GASTROINTESTINAL: Abdomen soft, non-tender, nondistended. Hepatic and splenic margins not palpable. MUSCULOSKELETAL: Extremities without clubbing, cyanosis, or edema. No obvious deformities. NEUROLOGICAL: Awake and alert. No obvious cranial nerve deficits. Motor grossly within normal limits. Five out of 5 muscle strength in the arms and legs. Normal speech. PSYCHIATRIC: Appropriate mood and affect; insight and judgment normal. Assessment and Plan Assessment and Plan RESPIRATORY FAILURE PULM FIBRSIS PLANCONTINUE O2 BRONCHODILATOR THERAPY Armani Lomeli MD May 14, 2017 16:42
[2017-05-14] MEDS: diphenhydrAMINE HCL 25 MG CAP PO SCH (21:00)
[2017-05-14] MEDS: RANITIDINE HCL SYRUP 150 MG/10 ML UDC PO SCH (21:15)
[2017-05-14] MEDS: CIPROFLOXACIN 250 MG TAB PO SCH (21:16)
[2017-05-15] VITALS: BP 128/86; PULSE 66; RESP 18; TEMP 98.1; O2SAT 97
[2017-05-15] MEDS: CHLORHEXIDINE GLUCONATE 2 % 1 PACK (2 CLOTHS) TOP SCH (03:46)
[2017-05-15 04:00] VITALS: BP 137/65; PULSE 78; RESP 18; TEMP 98.2; O2SAT 93
[2017-05-15] MEDS: RESP: ALBUTEROL 1.25 MG/3 ML NEB (SCH) NEB ×2 (04:58→10:09)
[2017-05-15] MEDS: PANTOPRAZOLE SOD 40 MG DELAYED RELEASE TAB PO SCH (06:00)
[2017-05-15 08:00] VITALS: BP 116/63; PULSE 84; RESP 24; TEMP 98.2; O2SAT 92
[2017-05-15] MEDS: OFEV 100 MG PO SCH (08:30)
[2017-05-15] MEDS: ENOXAPARIN SODIUM 30 MG/0.3 ML SYRINGE SQ SCH (08:32)
[2017-05-15] MEDS: ERGOCALCIFEROL (VIT D2) 50,000 UNIT CAP PO SCH (08:32)
[2017-05-15] MEDS: CIPROFLOXACIN 250 MG TAB PO SCH (08:32)
[2017-05-15] MEDS: POTASSIUM CHLORIDE 8 MEQ CONTROLLED RELEASE TAB PO SCH (08:32)
[2017-05-15] MEDS: predniSONE 20 MG TAB PO SCH (08:32)
[2017-05-15] MEDS: SODIUM CHLORIDE 0.9% FLUSH 10 ML FLUSH IV FLUSH SCH (08:33)
[2017-05-15] MEDS: DOCUSATE SODIUM 50 MG/SENNA 8.6 MG TAB PO SCH (08:33)
[2017-05-15] MEDS: FLUTICASONE PROPIONATE 50 MCG/ACT 16 GM NASAL SPRAY EACH NARE SCH (08:33)
[2017-05-15] MEDS: ALPRAZolam 0.25 MG TAB PO PRN (09:30)
[2017-05-15] MEDS ORDERED: BACT800T5 PO (09:38)
[2017-05-15 10:09] VITALS: O2SAT 92
[2017-05-15 12:00] VITALS: BP 137/73; PULSE 79; RESP 20; TEMP 97.2; O2SAT 96
== END 2017-05-15 13:01 | DRG 189 ==
LOC: NEPC 00:14 → NEDA 02:53 → HIMW 04:45 → N04A 05-12 19:05
PROVIDERS: ADMIT Internal Medicine Critical Care Medicine; ATTEND Hospitalist
PROC: 5A09457 Assistance with Respiratory Ventilation, 24-96 Consecutive Hours, Continuous Positive Airway Pressure (ICD-10-PCS; principal; 2017-05-11)
DX: J96.11 Chronic respiratory failure with hypoxia (principal); E87.2 Acidosis; J84.112 Idiopathic pulmonary fibrosis; Z99.81 Dependence on supplemental oxygen; I10 Essential (primary) hypertension; F41.9 Anxiety disorder, unspecified; K21.9 Gastro-esophageal reflux disease without esophagitis; K22.70 Barrett's esophagus without dysplasia; Z87.891 Personal history of nicotine dependence; Z88.0 Allergy status to penicillin
CPT/HCPCS: 36600; 71010; 71275; 80053; 81001; 82550; 82805; 83735; 83880; 84100; 84484; 85025; 85379; 85610; 85730; 87040; 87077; 87086; 87186; 87641; 93005; 94002; 94003; 94640; 94664; 96374; J1650; J2930; J7512; J7613; Q9967

== ENCOUNTER 2017-05-31 21:46 | Inpatient (IN) | payer MEDICARE ==
[~2017-05-31] VITALS: Ht 152.4 cm; Wt 103.1 kg
[~2017-05-31 21:46] MED LIST changes: +ALPR.25 PO; -AYR0.65S NASAL; +BACT800T5 PO; +BENA25CA4 PO; -CHOL1CAP14 PO; -COZA25TA PO; +D 50CAP2 PO; +ENOX30IN SQ; +FLOR250C PO; +FLUT50SP EACH NARE; +FURO1TAB62 PO; -LEVA500T20 PO; -MOME17I EACH NARE; -OMEP20TA PO; +OMEP20TA93 PO; -PAPATAB; +POTA8CAP PO; +ZOFR4TAB PO; +oxygen NAS.CANULA
[2017-05-31 21:54] VITALS: BP 141/97; PULSE 110; O2SAT 100
[2017-05-31 22:04] VITALS: O2SAT 90
[2017-05-31] MEDS ORDERED: RESP: ALBUTEROL 2.5 MG/IPRATROPIUM 0.5 MG NEB (SCH) INH ONE (22:45)
[2017-05-31] MEDS ORDERED: SODIUM CHLORIDE 0.9% FLUSH 10 ML FLUSH IVF PRN (22:45)
--- NOTE | 2017-05-31 22:58 | RADRPT ---
EXAM DATE/TIME: 05/31/2017 22:48 [facility] COMPARISON: CHEST SINGLE AP, May 11, 2017, 0:58. INDICATIONS : Shortness of breath. MEDICAL HISTORY : Pulmonary fibrosis. SURGICAL HISTORY : None. ENCOUNTER: Initial ACUITY: 1 day PAIN SCORE: 3/10 LOCATION: Bilateral chest FINDINGS: Stable appearance to the lungs with prominent interstitial markings throughout and confluent opacity in the right perihilar region and left infrahilar region. Both hemidiaphragms remain well delineated . The patient's chin and breathing mask obscures the right pulmonary apex. CONCLUSION: Stable bilateral central consolidative infiltrates and peripheral interstitial opacities. Larry Flores MD on May 31, 2017 at 22:55 Board Certified Radiologist. This report was verified electronically.
[2017-05-31 23:10] LABS: BLOOD GAS BASE EXCESS 18.3 mmol/L (-2-2); BLOOD GAS CARBOXYHEMOGLOBIN 1.9 % (0-4); BLOOD GAS HCO3 45 mmol/L (22-26); BLOOD GAS METHEMOGLOBIN 0.6 % (0-2); BLOOD GAS O2 HGB SATURATION 87 % (90-100); BLOOD GAS OXYGEN CONTENT 15.9 Vol % (12.0-20.0); BLOOD GAS PCO2 85 mmHg (38-42); BLOOD GAS PO2 59 mmHG (61-120); BLOOD GAS TOTAL HGB 12.9 G/DL (12.0-16.0); CRITICAL VALUE YES; DRAW SITE LT RADIAL; FIO2 50 %; LITER FLOW 6 L/M; NUMBER OF ARTERIAL PUNCTURES 1; OXYGEN DEVICE VENTI MASK; STAT YES; ULNAR PULSE PRESENT
[2017-05-31 23:32] LABS: BACTERIA, URINE MANY /hpf; BLOOD, URINE MOD (NEG); COMMENT (UR) CULTURE INDICATED; CULTURE IF INDICATED CULTURE INDICATED; GLUCOSE,URINE NEG (NEG); HYALINE CAST, URINE 11 /lpf (RARE); KETONE, URINE NEG (NEG); MUCUS URINE MANY /lpf (OCC); NITRITE,URINE NEG (NEG); SQUAMOUS EPITHELIAL CELL URINE 1 /hpf (0-5); URINE COLOR YELLOW (YELLW/STRAW)
[2017-05-31 23:38] LABS: AUTOMATED NEUTROPHIL # 7.8 TH/MM3 (1.8-7.7); BASOPHIL % 0.5 % (0.0-2.0); EOSINOPHIL % 0.1 % (0.0-4.0); HEMATOCRIT 43.1 % (35.0-46.0); LYMPH % 13.2 % (9.0-44.0); LYMPHOCYTE # 1.3 TH/MM3 (1.0-4.8); MEAN CELL VOLUME 94.2 FL (80.0-100.0); MEAN CORPUSCULAR HEMOGLOBIN 30.9 PG (27.0-34.0); MEAN CORPUSCULAR HGB CONC 32.8 % (32.0-36.0); MONO % 9.4 % (0.0-8.0); NEUT % 76.8 % (16.0-70.0); PLATELET COUNT 199 TH/MM3 (150-450); RED BLOOD COUNT 4.58 MIL/MM3 (4.00-5.30); WHITE BLOOD COUNT 10.2 TH/MM3 (4.0-11.0)
--- NOTE | 2017-05-31 23:41 | PD ---
HPI Chief Complaint: Respiratory Symptoms Time Seen by Provider: 22:37 Travel History International Travel<30 days: No Contact w/Intl Traveler<30days: No Traveled to known affect area: No History of Present Illness HPI 67-year-old female with history of pulmonary fibrosis and hypoxemia presents to the emergency department from nursing facility for acutely progressively worsening hypoxemia while on reported supplemental oxygen. Patient normally is on continuous supplemental oxygen 3-4 L/m at all times and this evening even with changing her oxygen tank resource and adjusting her condenser and receiving nebulized treatments at the nursing facility oxygenation continued to deteriorate and per EMS report was 50% pulse oximetry with capnography of 70 upon their arrival. Patient is placed on nonrebreather mask and transported to the emergency department. Patient noted clinical improvement as well as improved saturations were identified and reported. Patient denies any chest pain no orthopnea has chronic lower leg edema. Patient was recently evaluated through her primary care with ultrasound Doppler of the lower extremities and no evidence for DVT. Patient's had no recent fever or productive cough. Patient denies chest pain. Patient recently hospitalized for similar complaint. Patient given updraft treatment in route. Patient reports earlier in the day she was evaluated for physical therapy and had no issues with desaturation while on supplemental oxygen and performing his uncle therapy tasks but as soon as she returned to her room she noted that her symptoms seem to worsen. Patient reports this happens periodically but has had no buckle coverer time and her supplemental oxygenation dosage or other medications. No sweats no near-syncope no syncope and no nausea or vomiting. PFSH Past Medical History Narrative Medical Pulmonary hypertension COPD pneumonia hiatal hernia clinical obesity hypertension; hysterectomy cholecystectomy herniorrhaphy; no tobacco use; nursing notes reviewed Hx Anticoagulant Therapy: No Asthma: Yes Autoimmune Disease: No Anxiety: Yes Cancer: No Cardiovascular Problems: Yes Chemotherapy: No COPD: Yes Cerebrovascular Accident: No Cystic Fibrosis: Yes (idiopathic pulmonary fibrosis.) Diabetes: No Diminished Hearing: No Endocrine: No Gastrointestinal Disorders: Yes (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 HYATAL HERNIA) GERD: Yes Genitourinary: No Headaches: Yes Hypertension: Yes Immune Disorder: No Implanted Vascular Access Dvce: No Musculoskeletal: Yes Neurologic: No Reproductive: Yes (HYSTERECTOMY) Respiratory: Yes Immunizations Current: Yes Tetanus Vaccination: < 5 Years Influenza Vaccination: Yes Menopausal: Yes Past Surgical History Abdominal Surgery: Yes (INCISIONAL HERNIA REPAIR) Cholecystectomy: Yes (1991) Gynecologic Surgery: Yes (HYSTERECTOMY 2003) Hysterectomy: Yes Pacemaker: No Tonsillectomy: Yes Other Surgery: Yes (hernia repair) Social History Alcohol Use: No Tobacco Use: No Substance Use: No Allergies-Medications (Allergen,Severity, Reaction): Coded Allergies: amoxicillin (Unverified Adverse Reaction, Intermediate, GI UPSET, 03/08/17) clavulanic acid (Unverified Adverse Reaction, Intermediate, GI UPSET, 03/08) Uncoded Allergies: SOME TAPES -RED SAMANTHA (Adverse Reaction, Mild, 03/08/17) LEAVES RED SAMANTHA Reported Meds & Prescriptions Reported Meds & Active Scripts Active Bactrim DS (Sulfamethoxazole-Trimethoprim) 800-160 Mg Tab 1 Tab PO BID 5 Days Lasix (Furosemide) 20 Mg Tab 20 Mg PO EVERY OTHER DAY Xanax (Alprazolam) 0.25 Mg Tab 0.25 Mg PO Q8H PRN Albuterol Neb (Albuterol Sulfate) 1.25 Mg/3 Ml Neb 1.25 Mg NEB Q4HR NEB 30 Days Prednisone 10 Mg Tab 10 Mg PO DIRECTED 30 Days 40mg po daily x 5 days,30mg po daily x 5 days,20mg po daily x 5 days,10mg po daily Reported [oxygen] Unknown Dose VIDA.CANULA CONTINUOUS Florastor (Saccharomyces Boulardii) 250 Mg Cap 250 Mg PO BID Zofran (Ondansetron HCl) 4 Mg Tab 4 Mg PO Q6HR PRN Benadryl Allergy (Diphenhydramine HCl) 25 Mg Cap 1 Tab PO HS Ofev (Nintedanib) 100 Mg Cap 100 Mg PO Q12H Potassium Chloride ER (Potassium Chloride) 8 Meq Cap 8 Meq PO DAILY Enoxaparin Inj (Enoxaparin Sodium) 30 Mg/0.3ML Syr 30 Mg SQ DAILY Fluticasone Nasal Arminto 50 Mcg/Act Naspr 50 Mcg EACH NARE BID 50 mcg/spray D3 Maximum Strength (Cholecalciferol) 5,000 Unit Cap 50,000 Units PO WEEKLY Zantac (Ranitidine HCl) 150 Mg Tab 150 Mg PO DAILY Omeprazole 20 Mg Tab 20 Mg PO BID Review of Systems Except as stated in HPI: all other systems reviewed are Neg Physical Exam Narrative GENERAL: Well-developed obese female in moderate distress with demonstrating some work of breathing but reports continuously improving SKIN: Warm and dry. HEAD: Normocephalic. EYES: No scleral icterus. No injection or drainage. NECK: Supple, trachea midline. No JVD or lymphadenopathy. CARDIOVASCULAR: Regular rate and rhythm without murmurs, gallops, or rubs. RESPIRATORY: Breath sounds equal bilaterally with chronic basilar crackles. No accessory muscle use. GASTROINTESTINAL: Abdomen soft, non-tender, nondistended. MUSCULOSKELETAL: No cyanosis, bilateral lower leg edema mild erythema of the right lower extremity.. BACK: Nontender without obvious deformity. No CVA tenderness. Data Data Last Documented VS Vital Signs Date Time Temp Pulse Resp B/P (MAP) Pulse Ox O2 Delivery O2 Flow Rate FiO2 06/01/17 00:47 89 06/01/17 00:22 50 05/31/17 23:09 Nasal Cannula 05/31/17 23:09 4.00 05/31/17 21:54 110 141/97 (112) Orders Orders Complete Blood Count With Diff (05/31/17 22:37) Comprehensive Metabolic Panel (05/31/17 22:37) B-Type Natriuretic Peptide (05/31/17 22:37) Act Partial Throm Time (Ptt) (05/31/17 22:37) Prothrombin Time / Inr (Pt) (05/31/17 22:37) Magnesium (Mg) (05/31/17 22:37) Ckmb (Isoenzyme) Profile (05/31/17 22:37) Troponin I (05/31/17 22:37) Urinalysis - C+S If Indicated (05/31/17 22:37) Blood Culture (05/31/17 22:37) Iv Access Insert/Monitor (05/31/17 22:37) Electrocardiogram (05/31/17 22:37) Ecg Monitoring (05/31/17 22:37) Oximetry (05/31/17 22:37) Oxygen Administration (05/31/17 22:37) Chest, Single Ap (05/31/17 22:37) Sodium Chloride 0.9% Flush (Ns Flush) (05/31/17 22:45) Albuterol-Ipratropium Neb (Duoneb Neb) (05/31/17 22:45) Lactic Acid (05/31/17 22:37) Arterial Blood Gas (Abg) (05/31/17 ) Urine Culture (05/31/17 23:08) Furosemide Inj (Lasix Inj) (05/31/17 23:45) Resp Bipap / Cpap Non Invas Vt (06/01/17 ) Ceftriaxone Inj (Rocephin Inj) (06/01/17 00:30) Albuterol-Ipratropium Neb (Duoneb Neb) (06/01/17 00:30) Methylprednisolone So Succ Inj (Solumedr (06/01/17 00:30) Cefepime Inj (Maxipime Inj) (06/01/17 00:45) Vancomycin Inj (Vancomycin Inj) (06/01/17 00:45) Influenzae A/B Antigen (06/01/17 00:41) Admit To Inpatient (06/01/17 ) Inpatient Certification (06/01/17 ) Code Status (06/01/17 00:42) Vital Signs (Adult) JEF.Q1H (06/01/17 00:42) Activity Bed Rest (06/01/17 00:42) Retail Business Development Manager / Telemetry JEF.Q8H (06/01/17 00:42) Intake + Output JEF.Q8H (06/01/17 00:42) Bedside Glucose JEF.BGM (06/01/17 00:42) Diet Npo (06/01/17 Breakfast) Sodium Chlor 0.9% 1000 Ml Inj (Ns 1000 M (06/01/17 00:42) Sodium Chloride 0.9% Flush (Ns Flush) (06/01/17 00:45) Sodium Chloride 0.9% Flush (Ns Flush) (06/01/17 09:00) Acetaminophen (Tylenol) (06/01/17 00:45) Albuterol-Ipratropium Neb (Duoneb Neb) (06/01/17 04:00) Albuterol Neb (Albuterol Neb) (06/01/17 00:45) Chlorhexidine 0.12% Liq (Peridex 0.12% L (06/01/17 08:00) Famotidine Inj (Pepcid Inj) (06/01/17 09:00) Complete Blood Count With Diff (06/02/17 06:00) Comprehensive Metabolic Panel (06/02/17 06:00) Resp Bipap / Cpap Non Invas Vt (06/01/17 ) Consult Cm-Day 5 Ltac Eval (06/01/17 ) Consult Palliative Care (06/01/17 ) Enoxaparin Inj (Lovenox Inj) (06/01/17 00:45) ^ Initiate Protocol (06/01/17 00:42) Instruction (06/01/17 00:42) Misc Nursing Information (06/01/17 00:45) Chlorhexidine 2% Cloth (Chlorhexidine 2% (06/01/17 04:00) Chlorhexidine 2% Cloth (Chlorhexidine 2% (06/01/17 00:45) Mrsa Pcr Surveillance (06/01/17 00:42) Cefepime Inj (Maxipime Inj) (06/01/17 10:00) Vancomycin Consult Pharmacy (Vancomycin (06/01/17 01:00) Vancomycin Inj (Vancomycin Inj) (06/01/17 14:00) Methylprednisolone So Succ Inj (Solumedr (06/01/17 06:00) Consult Pulmonology (06/01/17 ) Legionella Urinary Antigen (06/01/17 00:50) Pneumococcal Urinary Antigen (06/01/17 00:50) Influenzae A/B Antigen (06/01/17 00:50) Misc. Nursing Information (06/03/17 19:45) Vancomycin Trough (06/03/17 19:45) Creatinine (06/02/17 06:00) Creatinine (06/04/17 06:00) Creatinine (06/06/17 06:00) Creatinine (06/08/17 06:00) Creatinine (06/10/17 06:00) Creatinine (06/12/17 06:00) Creatinine (06/14/17 06:00) Creatinine (06/16/17 06:00) Creatinine (06/18/17 06:00) Creatinine (06/20/17 06:00) Creatinine (06/22/17 06:00) Creatinine (06/24/17 06:00) Admit Order (Ed Use Only) (06/01/17 ) Retail Business Development Manager / Telemetry JEF.Q8H (06/01/17 01:16) Activity Oob With Assistance (06/01/17 01:16) Notify Dr: Other (06/01/17 01:16) Labs Laboratory Tests Test 05/31/17 22:50 05/31/17 23:00 05/31/17 23:08 White Blood Count 10.2 TH/MM3 Red Blood Count 4.58 MIL/MM3 Hemoglobin 14.1 GM/DL Hematocrit 43.1 % Mean Corpuscular Volume 94.2 FL Mean Corpuscular Hemoglobin 30.9 PG Mean Corpuscular Hemoglobin Concent 32.8 % Red Cell Distribution Width 16.0 % Platelet Count 199 TH/MM3 Mean Platelet Volume 8.7 FL Neutrophils (%) (Auto) 76.8 % Lymphocytes (%) (Auto) 13.2 % Monocytes (%) (Auto) 9.4 % Eosinophils (%) (Auto) 0.1 % Basophils (%) (Auto) 0.5 % Neutrophils # (Auto) 7.8 TH/MM3 Lymphocytes # (Auto) 1.3 TH/MM3 Monocytes # (Auto) 1.0 TH/MM3 Eosinophils # (Auto) 0.0 TH/MM3 Basophils # (Auto) 0.0 TH/MM3 CBC Comment AUTO DIFF Differential Comment AUTO DIFF CONFIRMED Platelet Estimate NORMAL Platelet Morphology Comment NORMAL Prothrombin Time 10.5 SEC Prothromb Time International Ratio 1.0 RATIO Activated Partial Thromboplast Time 21.9 SEC Blood Urea Nitrogen 21 MG/DL Creatinine 0.78 MG/DL Random Glucose 111 MG/DL Total Protein 6.9 GM/DL Albumin 3.1 GM/DL Calcium Level 9.2 MG/DL Magnesium Level 2.2 MG/DL Alkaline Phosphatase 54 U/L Aspartate Amino Transf (AST/SGOT) 38 U/L Alanine Aminotransferase (ALT/SGPT) 48 U/L Total Bilirubin 0.4 MG/DL Sodium Level 138 MEQ/L Potassium Level 4.8 MEQ/L Chloride Level 91 MEQ/L Carbon Dioxide Level 43.1 MEQ/L Anion Gap 4 MEQ/L Estimat Glomerular Filtration Rate 74 ML/MIN Lactic Acid Level 1.6 mmol/L Total Creatine Kinase 61 U/L Troponin I LESS THAN 0.02 NG/ML B-Type Natriuretic Peptide 15 PG/ML Blood Gas Puncture Site LT RADIAL Blood Gas Patient Temperature 37.0 Blood Gas HCO3 45 mmol/L Blood Gas Base Excess 18.3 mmol/L Blood Gas Oxygen Saturation 87 % Arterial Blood pH 7.34 Arterial Blood Partial Pressure CO2 85 mmHg Arterial Blood Partial Pressure O2 59 mmHG Arterial Blood Oxygen Content 15.9 Vol % Arterial Blood Carboxyhemoglobin 1.9 % Arterial Blood Methemoglobin 0.6 % Blood Gas Hemoglobin 12.9 G/DL Oxygen Delivery Device VENTI MASK Blood Gas Liter Flow 6 L/M Blood Gas Inspired Oxygen 50 % Urine Color YELLOW Urine Turbidity HAZY Urine pH 6.0 Urine Specific Slinger 1.022 Urine Protein TRACE mg/dL Urine Glucose (UA) NEG mg/dL Urine Ketones NEG mg/dL Urine Occult Blood MOD Urine Nitrite NEG Urine Bilirubin NEG Urine Urobilinogen 2.0 MG/DL Urine Leukocyte Esterase LARGE Urine RBC 4 /hpf Urine WBC 54 /hpf Urine Squamous Epithelial Cells 1 /hpf Urine Bacteria MANY /hpf Urine Hyaline Casts 11 /lpf Urine Mucus MANY /lpf Microscopic Urinalysis Comment CULTURE INDICATED MDM Medical Decision Making Medical Screen Exam Complete: Yes Emergency Medical Condition: Yes Medical Record Reviewed: Yes Interpretation(s) EKG sinus tachycardia rate [address] elevation or injury pattern change or ectopy noted Vital Signs Date Time Temp Pulse Resp B/P (MAP) Pulse Ox O2 Delivery O2 Flow Rate FiO2 05/31/17 23:09 Nasal Cannula 05/31/17 23:09 95 Nasal Cannula 4.00 05/31/17 22:04 90 Venturi Mask 6.00 50 05/31/17 21:54 110 141/97 (112) 100 Last Impressions Chest X-Ray 05/31/177 Signed Impressions: Service Date/Time: Wednesday, May 31, 2017 22:48 - CONCLUSION: Stable bilateral central consolidative infiltrates and peripheral interstitial opacities. Larry Flores MD ABG on 50% Ventimask pH is 7.43 with PCO2 of 85 and PO2 of 60 bicarbonate is 45 base excess 18 O2 saturation 87% patient runs a history of elevated CO2 with hypercarbia and reportedly O2 saturations are 88-92% on 2 L/m nasal cannula at all times Chest x-ray shows evidence of chronic fibrosis Differential Diagnosis Dyspnea, exacerbation pulmonary fibrosis, pneumonia, COPD exacerbation, CHF, ACS , sepsis, cellulitis Narrative Course Patient placed on monitor and nonrebreather mask replaced with Ventimask patient given updraft treatment and imaging study ordered Patient reports she has not taken her Lasix today 20 mg is administered every other day for mild fluid retention patient has not noticed any orthopnea or increasing edema of the lower extremities Patient denies any fever or chills Patient reports that she is symptomatically improved on supplemental oxygen but typically will require serial 4 L/m nasal cannula Patient given additional updraft treatment and ABG ordered which identifies patient to have respiratory acidosis and hypoxemia however patient's PCO2 is near her baseline as is her O2 saturation; attempt to decrease patient's FiO2 changing from 50-40% with plan to decrease to 35% if tolerated however rest her therapist notes stated is decreasing FiO2 from 50-40% patient was stressed to have a rapid drop in her O2 saturation and O2 saturations quickly deteriorate to lower 80s and upper 70% plan to start patient on BiPAP initiated. Patient improving on BiPAP slightly and discussion regarding intubation discussed in detail with the patient request attempt at BiPAP but if necessary will accept intubation Patient's case discussed with on-call digital producer for admission for respiratory failure with hypercapnia; patient also identified to have abnormal urinalysis and IV antibiotics administered presumptively also concern for possible cellulitis developing of the right lower leg. Patient aware plan for admission and is agreeable. Critical Care Narrative Aggregate critical care time was 35 minutes. Time to perform other separately billable procedures was not included in the critical care time. My time did not include minutes spent treating any other patients simultaneously or on activities that did not directly contribute to the patient's treatment. The services I provided to this patient were to treat and/or prevent clinically significant deterioration that could result in: Respiratory failure respiratory arrest I provided critical care services requiring my management, as noted below: Chart data review, documentation time, medication orders and management, vital sign assessments/reviewing monitor data, ordering and reviewing lab tests, ordering and interpreting/reviewing x-rays and diagnostic studies, care of the patient and discussion of the patient with the admitting physicians. Physician Communication Physician Communication call placed to digital producer Dr Avila Diagnosis Primary Impression: Respiratory failure with hypercapnia Qualified Codes: J96.22 - Acute and chronic respiratory failure with hypercapnia Additional Impressions: Chronic idiopathic pulmonary fibrosis UTI (urinary tract infection) Admitting Information Admitting Physician Requests: Admit Janay Garcia MD May 31, 2017 23:41
[2017-05-31 23:42] LABS: APTT (PATIENT) 21.9 SEC (24.3-30.1); PROTHROMBIN TIME - PATIENT 10.5 SEC (9.8-11.6)
[2017-05-31] MEDS ORDERED: FUROSEMIDE 20 MG/2 ML VIAL IV PUSH ONE (23:45)
[2017-05-31 23:54] LABS: ALT (GPT) 48 U/L (10-53)
[2017-06-01] VITALS (31 sets, daily range): BP systolic 123–193; BP diastolic 68–86; PULSE 70–96; RESP 10–41; TEMP 97.5–98.1; O2SAT 89–100
[2017-06-01] LABS: ALKALINE PHOSPHATASE 54 U/L (45-117); ANION GAP 4 MEQ/L (5-15); AST (GOT) 38 U/L (15-37); BICARBONATE 43.1 MEQ/L (21.0-32.0); BLOOD UREA NITROGEN 21 MG/DL (7-18); CHLORIDE 91 MEQ/L (98-107); CREATINE KINASE 61 U/L (26-192); GLOMERULAR FILTRATION RATE 74 ML/MIN (>89); MAGNESIUM 2.2 MG/DL (1.5-2.5); POTASSIUM 4.8 MEQ/L (3.5-5.1); SODIUM (NA) 138 MEQ/L (136-145); TOTAL BILIRUBIN ADULT 0.4 MG/DL (0.2-1.0)
[2017-06-01 00:03] LABS: HEMO FLAGS AUTO DIFF
[2017-06-01 00:04] LABS: PLATELET ESTIMATE SMEAR NORMAL (NORMAL); PLATELET MORPHOLOGY NORMAL (NORMAL); SCAN/DIFF AUTO DIFF CONFIRMED
[2017-06-01] MEDS ORDERED: methylPREDNISolone SOD SUCC 125 MG/2 ML VIAL IV PUSH ONE (00:30)
[2017-06-01] MEDS ORDERED: cefTRIAXone INJ 1,000 MG in SODIUM CHLORIDE 0.9% INJ 100 ML IV ONE (00:30)
[2017-06-01] MEDS ORDERED: RESP: ALBUTEROL 2.5 MG/IPRATROPIUM 0.5 MG NEB (SCH) NEB ONE (00:30)
[2017-06-01] MEDS: ENOXAPARIN SODIUM 40 MG/0.4 ML SYRINGE SQ SCH ×3 (00:45→23:09)
[2017-06-01] MEDS ORDERED: CEFEPIME INJ 2,000 MG in SODIUM CHLORIDE 0.9% INJ 100 ML IV ONE (00:45)
[2017-06-01] MEDS ORDERED: CHLORHEXIDINE GLUCONATE 2 % 1 PACK (2 CLOTHS) TOP PRN (00:45)
[2017-06-01] MEDS ORDERED: VANCOMYCIN INJ 1,000 MG in SODIUM CHLOR 0.9% 250 ML INJ 250 ML IV ONE (00:45)
[2017-06-01] MEDS ORDERED: MISCELLANEOUS NURSING INFORMATION XX SCH (00:45)
[2017-06-01] MEDS ORDERED: SODIUM CHLORIDE 0.9% FLUSH 10 ML FLUSH IV FLUSH PRN (00:45)
[2017-06-01] MEDS ORDERED: ACETAMINOPHEN 325 MG TAB PO PRN (00:45)
[2017-06-01] MEDS ORDERED: Vancomycin Consult Pharmacy 1 EA OTHER SCH (01:00)
--- NOTE | 2017-06-01 01:03 | HHI.HP ---
HPI Service Critical Care Medicine Primary Care Physician Unknown Admission Diagnosis Acute on chronic respiratory failure Pulmonary fibrosis Suspected pneumonia UTI Diagnosis: Chief Complaint: Shortness of breath Travel History International Travel<30 Days: No Contact w/Intl Traveler <30 Da: No Traveled to Known Affected Are: No History of Present Illness HPI N 67-year-old female with a medical history significant for poorly fibrosis with chronic CO2 retention who was brought in from an assisted living facility with a history of worsening shortness of breath for a day. Patient was noted to be hypoxic on arrival and was initially placed on a Ventimask followed by BiPAP with which her O2 sats came up in the low 90s. Patient was initiated on IV steroids, bronchodilators and empiric antibiotics. Her chest x-ray revealed bilateral infiltrates. Patient was accepted for admission by critical care medicine service. When I evaluated the patient in the ER she was on BiPAP with full facemask with settings +16/+8 FiO2 80%. It was difficult to obtain details of history as patient was dyspneic requiring BiPAP with full facemask. History was obtained by reviewing records and discussion with ER physician. Review of Systems ROS Limitations: Clinical Condition Past Family Social History Allergies: Coded Allergies: amoxicillin (Unverified Adverse Reaction, Intermediate, GI UPSET, 03/08/17) clavulanic acid (Unverified Adverse Reaction, Intermediate, GI UPSET, 03/08) Uncoded Allergies: SOME TAPES -RED SAMANTHA (Adverse Reaction, Mild, 03/08/17) LEAVES RED SAAMNTHA Past Medical History PFSH Past Medical History Hx Anticoagulant Therapy: No Asthma: Yes Autoimmune Disease: No Anxiety: Yes Cancer: No Cardiovascular Problems: Yes Chemotherapy: No COPD: Yes Cerebrovascular Accident: No Cystic Fibrosis: Yes (idiopathic pulmonary fibrosis.) Diabetes: No Diminished Hearing: No Endocrine: No Gastrointestinal Disorders: Yes (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 HYATAL HERNIA) GERD: Yes Genitourinary: No Headaches: Yes Hypertension: Yes Immune Disorder: No Implanted Vascular Access Dvce: No Musculoskeletal: Yes Neurologic: No Reproductive: Yes (HYSTERECTOMY) Respiratory: Yes Immunizations Current: Yes Tetanus Vaccination: < 5 Years Influenza Vaccination: Yes Menopausal: Yes Past Surgical History Past Surgical History Abdominal Surgery: Yes (INCISIONAL HERNIA REPAIR) Cholecystectomy: Yes (1991) Gynecologic Surgery: Yes (HYSTERECTOMY 2003) Hysterectomy: Yes Pacemaker: No Tonsillectomy: Yes Other Surgery: Yes (hernia repair) Reported Medications Reported Meds & Prescriptions Reported Meds & Active Scripts Active Bactrim DS (Sulfamethoxazole-Trimethoprim) 800-160 Mg Tab 1 Tab PO BID 5 Days Lasix (Furosemide) 20 Mg Tab 20 Mg PO EVERY OTHER DAY Xanax (Alprazolam) 0.25 Mg Tab 0.25 Mg PO Q8H PRN Albuterol Neb (Albuterol Sulfate) 1.25 Mg/3 Ml Neb 1.25 Mg NEB Q4HR NEB 30 Days Prednisone 10 Mg Tab 10 Mg PO DIRECTED 30 Days 40mg po daily x 5 days,30mg po daily x 5 days,20mg po daily x 5 days,10mg po daily Reported [oxygen] Unknown Dose VIDA.CANULA CONTINUOUS Florastor (Saccharomyces Boulardii) 250 Mg Cap 250 Mg PO BID Zofran (Ondansetron HCl) 4 Mg Tab 4 Mg PO Q6HR PRN Benadryl Allergy (Diphenhydramine HCl) 25 Mg Cap 1 Tab PO HS Ofev (Nintedanib) 100 Mg Cap 100 Mg PO Q12H Potassium Chloride ER (Potassium Chloride) 8 Meq Cap 8 Meq PO DAILY Enoxaparin Inj (Enoxaparin Sodium) 30 Mg/0.3ML Syr 30 Mg SQ DAILY Fluticasone Nasal [place] 50 Mcg/Act Naspr 50 Mcg EACH NARE BID 50 mcg/spray D3 Maximum Strength (Cholecalciferol) 5,000 Unit Cap 50,000 Units PO WEEKLY Zantac (Ranitidine HCl) 150 Mg Tab 150 Mg PO DAILY Omeprazole 20 Mg Tab 20 Mg PO BID Family History Noncontributory at this time Social History Social History Alcohol Use: No Tobacco Use: No Substance Use: No Physical Exam Vital Signs Vital Signs Date Time Temp Pulse Resp B/P (MAP) Pulse Ox O2 Delivery O2 Flow Rate FiO2 06/01/17 00:47 89 06/01/17 00:22 91 50 05/31/17 23:09 Nasal Cannula 05/31/17 23:09 95 Nasal Cannula 4.00 05/31/17 22:04 90 Venturi Mask 6.00 50 05/31/17 21:54 110 141/97 (112) 100 Physical Exam HEENT/Neuro: No pallor or icterus, tongue moist, CISCO, drowsy, easily arousable , on BiPAP with full facemask, nonfocal grossly, moving all 4 extremities Neck: No JVD Chest/pulmonary: On BiPAP with full facemask, air entry decreased bilaterally, scattered rhonchi, no wheezing Cardiovascular: S1-S2 regular no gallop or murmur GI/abdomen: Soft, nontender, bowel sounds present Extremities: Warm bilaterally, trace edema bilaterally. Right leo with some erythema and warmth noted Laboratory Laboratory Tests Test 05/31/17 22:50 05/31/17 23:00 05/31/17 23:08 White Blood Count 10.2 Red Blood Count 4.58 Hemoglobin 14.1 Hematocrit 43.1 Mean Corpuscular Volume 94.2 Mean Corpuscular Hemoglobin 30.9 Mean Corpuscular Hemoglobin Concent 32.8 Red Cell Distribution Width 16.0 Platelet Count 199 Mean Platelet Volume 8.7 Neutrophils (%) (Auto) 76.8 Lymphocytes (%) (Auto) 13.2 Monocytes (%) (Auto) 9.4 Eosinophils (%) (Auto) 0.1 Basophils (%) (Auto) 0.5 Neutrophils # (Auto) 7.8 Lymphocytes # (Auto) 1.3 Monocytes # (Auto) 1.0 Eosinophils # (Auto) 0.0 Basophils # (Auto) 0.0 CBC Comment AUTO DIFF Differential Comment AUTO DIFF CONFIRMED Platelet Estimate NORMAL Platelet Morphology Comment NORMAL Prothrombin Time 10.5 Prothromb Time International Ratio 1.0 Activated Partial Thromboplast Time 21.9 Blood Urea Nitrogen 21 Creatinine 0.78 Random Glucose 111 Total Protein 6.9 Albumin 3.1 Calcium Level 9.2 Magnesium Level 2.2 Alkaline Phosphatase 54 Aspartate Amino Transf (AST/SGOT) 38 Alanine Aminotransferase (ALT/SGPT) 48 Total Bilirubin 0.4 Sodium Level 138 Potassium Level 4.8 Chloride Level 91 Carbon Dioxide Level 43.1 Anion Gap 4 Estimat Glomerular Filtration Rate 74 Lactic Acid Level 1.6 Total Creatine Kinase 61 Troponin I LESS THAN 0.02 B-Type Natriuretic Peptide 15 Blood Gas Puncture Site LT RADIAL Blood Gas Patient Temperature 37.0 Blood Gas HCO3 45 Blood Gas Base Excess 18.3 Blood Gas Oxygen Saturation 87 Arterial Blood pH 7.34 Arterial Blood Partial Pressure CO2 85 Arterial Blood Partial Pressure O2 59 Arterial Blood Oxygen Content 15.9 Arterial Blood Carboxyhemoglobin 1.9 Arterial Blood Methemoglobin 0.6 Blood Gas Hemoglobin 12.9 Oxygen Delivery Device VENTI MASK Blood Gas Liter Flow 6 Blood Gas Inspired Oxygen 50 Urine Color YELLOW Urine Turbidity HAZY Urine pH 6.0 Urine Specific [place] 1.022 Urine Protein TRACE Urine Glucose (UA) NEG Urine Ketones NEG Urine Occult Blood MOD Urine Nitrite NEG Urine Bilirubin NEG Urine Urobilinogen 2.0 Urine Leukocyte Esterase LARGE Urine RBC 4 Urine WBC 54 Urine Squamous Epithelial Cells 1 Urine Bacteria MANY Urine Hyaline Casts 11 Urine Mucus MANY Microscopic Urinalysis Comment CULTURE INDICATED Date/Time Source Procedure Growth Status 05/31/17 22:56 Blood Peripheral Aerobic Blood Culture Pending Received 05/31/17 22:56 Blood Peripheral Anaerobic Blood Culture Pending Received 05/31/17 23:08 Urine Clean Catch Urine Culture Pending Received Result Diagram: 05/31/17 22505/31/17 225 Imaging Last Impressions Chest X-Ray 05/31/172236 Signed Impressions: Service Date/Time: Monday, May 31, 2017 22:48 - CONCLUSION: Stable bilateral central consolidative infiltrates and peripheral interstitial opacities. MD Lory Patel VTE Risk Assessment Caprini VTE Risk Assessment: Mod/High Risk (score >= 2) Caprini Risk Assessment Model Point Value = 1 Point Value = 2 Point Value = 3 Point Value = 5 Age 41-60 Minor surgery BMI > 25 kg/m2 Swollen legs Varicose veins or History of unexplained or recurrent spontaneous Oral contraceptives or hormone replacement Sepsis (< 1 month) Serious lung disease, including pneumonia (< 1 month) Abnormal pulmonary function Acute myocardial infarction Congestive heart failure (< 1 month) History of inflammatory bowel disease Medical patient at bed rest Age 61-74 Arthroscopic surgery Major open surgery (> 45 min) Laparoscopic surgery (> 45 min) Malignancy Confined to bed (> 72 hours) Immobilizing plaster cast Central venous access Age >= 75 History of VTE Family history of VTE Factor V Leiden Prothrombin [id number] Lupus anticoagulant Anticardiolipin antibodies Elevated serum homocysteine Heparin-induced thrombocytopenia Other congenital or acquired thrombophilia Stroke (< 1 month) Elective arthroplasty Hip, pelvis, or leg fracture Acute spinal cord injury (< 1 month) Prophylaxis Regimen Total Risk Factor Score Risk Level Prophylaxis Regimen 0-1 Low Early ambulation 2 Moderate Order ONE of the following: *Sequential Compression Device (SCD) *Heparin 5000 units SQ BID 3-4 Higher Order ONE of the following medications: *Heparin 5000 units SQ TID *Enoxaparin/Lovenox 40 mg SQ daily (WT < 150 kg, CrCl > 30 mL/min) *Enoxaparin/Lovenox 30 mg SQ daily (WT < 150 kg, CrCl > 10-29 mL/min) *Enoxaparin/Lovenox 30 mg SQ BID (WT < 150 kg, CrCl > 30 mL/min) AND/OR *Sequential Compression Device (SCD) 5 or more Highest Order ONE of the following medications: *Heparin 5000 units SQ TID (Preferred with Epidurals) *Enoxaparin/Lovenox 40 mg SQ daily (WT < 150 kg, CrCl > 30 mL/min) *Enoxaparin/Lovenox 30 mg SQ daily (WT < 150 kg, CrCl > 10-29 mL/min) *Enoxaparin/Lovenox 30 mg SQ BID (WT < 150 kg, CrCl > 30 mL/min) AND *Sequential Compression Device (SCD) Assessment and Plan Assessment and Plan 67-year-old female with: Acute on chronic respiratory failure requiring BiPAP Advanced pulmonary fibrosis Suspected pneumonia UTI Hiatal hernia Morbid obesity Plan: Neuro: Avoid sedatives and narcotics. Follow neuro status. Currently protecting airway. Cardiovascular: IV hydration, watch for hypotension. BNP 15. Received Lasix in ER. Pulmonary: Continue BiPAP. If respiratory status worsens despite BiPAP may require endotracheal intubation. Consult pulmonary for advance primary fibrosis. Bronchodilators, Solu-Medrol IV. ID: Empiric antibiotic coverage with vancomycin/Zosyn. Check nasal washings for influenza A and B. Follow-up cultures Heme: Follow CBC Renal/: Strict intake output, monitor and replete electrolytes, follow BUN/ creatinine. Endocrine: Watch for hyperglycemia, SSI for glycemic control if needed. Prophylaxis: Pepcid/SCDs/Lovenox. We'll consult palliative care to assist with deciding goals of therapy as patient appears to have advanced pulmonary fibrosis and her long-term prognosis appears to be very poor. Condition critical Time spent on critical care excluding procedures 40 minutes: Demario Avila MD Jun 01, 2017 01:03
[2017-06-01] MEDS: SODIUM CHLOR 0.9% 1000 ML INJ 1,000 ML IV SCH ×2 (02:53→13:56)
[2017-06-01] MEDS: CHLORHEXIDINE GLUCONATE 2 % 1 PACK (2 CLOTHS) TOP SCH (04:00)
[2017-06-01] MEDS: RESP: ALBUTEROL 2.5 MG/IPRATROPIUM 0.5 MG NEB (SCH) NEB ×5 (04:03→20:05)
[2017-06-01] MEDS: methylPREDNISolone SOD SUCC 40 MG/1 ML VIAL IV PUSH SCH ×4 (06:19→23:08)
[2017-06-01] MEDS: INSULIN NovoLIN REGULAR SUPPLEMENTAL SCALE SQ SCH ×3 (07:30→18:00)
[2017-06-01] MEDS ORDERED: hydrALAZINE HCL 20 MG/ML VIAL IV PUSH PRN (07:30)
[2017-06-01] MEDS ORDERED: GLUCAGON 1 MG/ML VIAL OTHER PRN (07:30)
[2017-06-01] MEDS ORDERED: DEXTROSE 50% IN WATER 50 ML VIAL(D50) IV PUSH PRN (07:30)
[2017-06-01] MEDS: CHLORHEXIDINE 0.12% (ORAL KIT) 15 ML CUP MT SCH ×2 (08:00→20:00)
[2017-06-01] MEDS: SODIUM CHLORIDE 0.9% FLUSH 10 ML FLUSH IV FLUSH SCH ×2 (09:00→23:08)
[2017-06-01] MEDS: FAMOTIDINE 20 MG/2 ML VIAL IV PUSH SCH ×2 (09:00→23:08)
[2017-06-01 09:01] LABS: AUTOMATED NEUTROPHIL # 8.6 TH/MM3 (1.8-7.7); BASOPHIL % 0.1 % (0.0-2.0); HEMATOCRIT 40.5 % (35.0-46.0); HEMO FLAGS DIFF FINAL; LYMPH % 5.2 % (9.0-44.0); LYMPHOCYTE # 0.5 TH/MM3 (1.0-4.8); MEAN CELL VOLUME 95.1 FL (80.0-100.0); MEAN CORPUSCULAR HEMOGLOBIN 30.6 PG (27.0-34.0); MEAN CORPUSCULAR HGB CONC 32.2 % (32.0-36.0); NEUT % 93.7 % (16.0-70.0); PLATELET COUNT 162 TH/MM3 (150-450); RED BLOOD COUNT 4.26 MIL/MM3 (4.00-5.30); RED CELL DISTRIBUTION WIDTH 15.7 % (11.6-17.2); WHITE BLOOD COUNT 9.1 TH/MM3 (4.0-11.0)
[2017-06-01] MEDS: DILTIAZEM HCL 60 MG TAB PO SCH ×5 (09:11→23:08)
[2017-06-01] MEDS: CEFEPIME INJ 1,000 MG in SODIUM CHLORIDE 0.9% INJ 100 ML IV SCH ×2 (09:12→19:10)
[2017-06-01 09:15] LABS: BICARBONATE 38.4 MEQ/L (21.0-32.0); MAGNESIUM 2.1 MG/DL (1.5-2.5); POTASSIUM 4.2 MEQ/L (3.5-5.1)
[2017-06-01 09:40] LABS: BLOOD GAS BASE EXCESS 16.9 mmol/L (-2-2); BLOOD GAS CARBOXYHEMOGLOBIN 1.6 % (0-4); BLOOD GAS HCO3 44 mmol/L (22-26); BLOOD GAS METHEMOGLOBIN 1.1 % (0-2); BLOOD GAS O2 HGB SATURATION 94 % (90-100); BLOOD GAS OXYGEN CONTENT 17.1 Vol % (12.0-20.0); BLOOD GAS PCO2 90 mmHg (38-42); BLOOD GAS PO2 90 mmHg (61-120); TEMP CORR TO 98.6
[2017-06-01 09:41] LABS: CRITICAL VALUE YES; DRAW SITE RT RADIAL; LITER FLOW 4 L/M; NUMBER OF ARTERIAL PUNCTURES 1; OXYGEN DEVICE NASAL CANNULA; STAT NO; ULNAR PULSE PRESENT
--- NOTE | 2017-06-01 10:29 | EKG ---
Date Performed: 05/31/2017 Time Performed: 23:10:30 PTAGE: 67 years EKG: SINUS TACHYCARDIA VOLTAGE CRITERIA FOR LVH ABNORMAL ECG PREVIOUS TRACING : 05/11/2017 00.20 DOCTOR: Artem Guillaume Interpretating Date/Time 06/01/2017 10:26:36
[2017-06-01] MEDS: VANCOMYCIN INJ 1,700 MG in SODIUM CHLORID 0.9% 500 ML INJ 500 ML IV SCH (13:57)
[2017-06-01 14:51] LABS: BLOOD GAS BASE EXCESS 14.7 mmol/L (-2-2); BLOOD GAS CARBOXYHEMOGLOBIN 1.4 % (0-4); BLOOD GAS HCO3 42 mmol/L (22-26); BLOOD GAS O2 HGB SATURATION 91 % (90-100); BLOOD GAS OXYGEN CONTENT 16.2 Vol % (12.0-20.0); BLOOD GAS PCO2 92 mmHg (38-42); BLOOD GAS PO2 75 mmHg (61-120); BLOOD GAS TOTAL HGB 12.6 G/DL (12.0-16.0); TEMP CORR TO 98.6
--- NOTE | 2017-06-01 16:31 | MB ---
cc: BREANNA ROACH MD DATE OF CONSULTATION: 06/01/2017 REASON FOR CONSULTATION: Respiratory failure. HISTORY OF PRESENT ILLNESS The patient is a very pleasant 67-year-old female who has history of pulmonary fibrosis for which she is on Ofev. The patient came into the hospital because she was having increased shortness of breath. The patient was found to be significantly hypoxic. She was placed on BiPAP and at this time she is doing better on BiPAP. She is on IV steroids and antibiotics and bronchodilators. The patient usually follows up with Dr. Freitas. She does not have any fever, chills, hemoptysis or chest pain. PAST MEDICAL HISTORY Reviewed in detail: 1. History of pulmonary fibrosis. 2. Asthma. 3. Zamorano's esophagus. PAST SURGICAL HISTORY Positive for history of: 1. Incisional hernia repair surgery. 2. Hysterectomy. 3. Cholecystectomy. MEDICATION The medication that she is on were reviewed in detail. REVIEW OF SYSTEMS Negative except for what is mentioned in the HPI. PHYSICAL EXAMINATION GENERAL APPEARANCE: The patient looks in respiratory distress. VITAL SIGNS: Shows a temperature of 97.8, pulse 77, respiratory rate 30, blood pressure 145/70. She looks Cushingoid. BiPAP in place. LUNGS: Bilateral basal crackles. HEART: S1, S2. ABDOMEN: Soft. It is obese. EXTREMITIES: Trace edema. No cyanosis. NEUROLOGIC: Alert, awake. Moves all extremities. LABORATORY DATA Labs were reviewed in detail. WBC 9.1, hemoglobin 13, platelets 162. BUN is 19, creatinine 0.72, sodium 139, potassium 4.2. IMAGING STUDIES I reviewed her chest x-ray that did show bilateral infiltrates with airspace disease. ASSESSMENT AND PLAN 1. Hypoxic respiratory failure. 2. Pulmonary fibrosis, acute exacerbation. 3. Possible overlying pneumonia. The patient is already on IV steroids and IV antibiotics which I agree with. Of note ___ is very high, it can be up to 50% in the picture of an acute pulmonary fibrosis exacerbation, I would like her to continue on ___ positive pressure ventilation as clinically indicated and as recommended by the technical adjuster. Wean off of ___ 02 sat more than or equal to 89%, avoid volume overload at all cost. Thank you for this consultation. I will continue to follow. I am okay with her continued taking her Ofev. MD YOLANDA Rothman/LIZABETH /2:58 PM /3:50 PM
[2017-06-01 19:03] LABS: CRITICAL VALUE YES
[2017-06-01 19:04] LABS: DRAW SITE RT RADIAL; FIO2 40 %; NUMBER OF ARTERIAL PUNCTURES 1; OXYGEN DEVICE BIPAP 16/+8; STAT NO; ULNAR PULSE PRESENT
[2017-06-01] MEDS: OFEV 100 MG PO SCH (21:00)
[2017-06-02] VITALS (25 sets, daily range): BP systolic 117–156; BP diastolic 58–76; PULSE 64–86; RESP 24–45; TEMP 96.7–98; O2SAT 87–100
[2017-06-02] MEDS: RESP: ALBUTEROL 2.5 MG/IPRATROPIUM 0.5 MG NEB (SCH) NEB ×6 (00:09→19:46)
[2017-06-02] MEDS: SODIUM CHLOR 0.9% 1000 ML INJ 1,000 ML IV SCH (03:16)
[2017-06-02] MEDS: CEFEPIME INJ 1,000 MG in SODIUM CHLORIDE 0.9% INJ 100 ML IV SCH ×3 (03:16→18:00)
[2017-06-02] MEDS: CHLORHEXIDINE GLUCONATE 2 % 1 PACK (2 CLOTHS) TOP SCH (04:00)
[2017-06-02] MEDS: DILTIAZEM HCL 60 MG TAB PO SCH ×3 (05:33→18:33)
[2017-06-02] MEDS: methylPREDNISolone SOD SUCC 40 MG/1 ML VIAL IV PUSH SCH ×3 (05:33→18:33)
[2017-06-02] MEDS: INSULIN NovoLIN REGULAR SUPPLEMENTAL SCALE SQ SCH ×4 (06:00→18:00)
--- NOTE | 2017-06-02 07:21 | HHI.CCPN ---
Subjective Remarks/Hospital Course 67-year-old female with a medical history significant for poorly fibrosis with chronic CO2 retention who was brought in from an assisted living facility with a history of worsening shortness of breath for a day. Patient was noted to be hypoxic on arrival and was initially placed on a Ventimask followed by BiPAP with which her O2 sats came up in the low 90s. Patient was initiated on IV steroids, bronchodilators and empiric antibiotics. Her chest x-ray revealed bilateral infiltrates. Patient was accepted for admission by critical care medicine service. When I evaluated the patient in the ER she was on BiPAP with full facemask with settings +16/+8 FiO2 80%. It was difficult to obtain details of history as patient was dyspneic requiring BiPAP with full facemask. History was obtained by reviewing records and discussion with ER physician. 06/02 No events overnight. Off BIPAP and is on 4L oxygen with good sats. Afebrile. Awake. Objective Vital Signs Date Time Temp Pulse Resp B/P (MAP) Pulse Ox O2 Delivery O2 Flow Rate FiO2 06/02/17 03:45 92 40 06/01/17 23:15 Nasal Cannula 4.00 06/01/17 18:00 70 06/01/17 18:00 25 137/74 (95) 06/01/17 12:00 97.8 Result Diagram: 06/01/17 0820 06/01/17 0845 Other Results Laboratory Tests Test 06/01/17 08:20 06/01/17 08:45 06/01/17 09:32 06/01/17 14:33 White Blood Count 9.1 TH/MM3 Red Blood Count 4.26 MIL/MM3 Hemoglobin 13.0 GM/DL Hematocrit 40.5 % Mean Corpuscular Volume 95.1 FL Mean Corpuscular Hemoglobin 30.6 PG Mean Corpuscular Hemoglobin Concent 32.2 % Red Cell Distribution Width 15.7 % Platelet Count 162 TH/MM3 Mean Platelet Volume 8.1 FL Neutrophils (%) (Auto) 93.7 % Lymphocytes (%) (Auto) 5.2 % Monocytes (%) (Auto) 1.0 % Eosinophils (%) (Auto) 0.0 % Basophils (%) (Auto) 0.1 % Neutrophils # (Auto) 8.6 TH/MM3 Lymphocytes # (Auto) 0.5 TH/MM3 Monocytes # (Auto) 0.1 TH/MM3 Eosinophils # (Auto) 0.0 TH/MM3 Basophils # (Auto) 0.0 TH/MM3 CBC Comment DIFF FINAL Differential Comment Blood Urea Nitrogen 19 MG/DL Creatinine 0.72 MG/DL Random Glucose 143 MG/DL Calcium Level 8.5 MG/DL Phosphorus Level 3.7 MG/DL Magnesium Level 2.1 MG/DL Sodium Level 139 MEQ/L Potassium Level 4.2 MEQ/L Chloride Level 95 MEQ/L Carbon Dioxide Level 38.4 MEQ/L Anion Gap 6 MEQ/L Estimat Glomerular Filtration Rate 81 ML/MIN Blood Gas Puncture Site RT RADIAL RT RADIAL Blood Gas Patient Temperature 98.6 98.6 Blood Gas HCO3 44 mmol/L 42 mmol/L Blood Gas Base Excess 16.9 mmol/L 14.7 mmol/L Blood Gas Oxygen Saturation 94 % 91 % Arterial Blood pH 7.31 7.28 Arterial Blood Partial Pressure CO2 90 mmHg 92 mmHg Arterial Blood Partial Pressure O2 90 mmHg 75 mmHg Arterial Blood Oxygen Content 17.1 Vol % 16.2 Vol % Arterial Blood Carboxyhemoglobin 1.6 % 1.4 % Arterial Blood Methemoglobin 1.1 % 1.0 % Blood Gas Hemoglobin 13.0 G/DL 12.6 G/DL Oxygen Delivery Device NASAL CANNULA BIPAP 16/+8 Blood Gas Liter Flow 4 L/M Blood Gas Inspired Oxygen 40 % Imaging Last Impressions Chest X-Ray 05/31/172236 Signed Impressions: Service Date/Time: Wednesday, May 31, 2017 22:48 - CONCLUSION: Stable bilateral central consolidative infiltrates and peripheral interstitial opacities. Larry Flores MD Objective Remarks GENERAL: Patient is 67 yo lying in bed in mild resp distress off BIPAP SKIN: Warm and dry. HEAD: Normocephalic. EYES: No scleral icterus. No injection or drainage. NECK: Supple, trachea midline. No JVD or lymphadenopathy. CARDIOVASCULAR: Regular rate and rhythm without murmurs, gallops, or rubs. RESPIRATORY: Breath sounds equal bilaterally. Coarse BS GASTROINTESTINAL: Abdomen soft, non-tender, nondistended. MUSCULOSKELETAL: No cyanosis, or edema. Neuro: Awake, alert A/P Assessment and Plan 67-year-old female with: Acute on chronic respiratory failure Advanced pulmonary fibrosis Suspected pneumonia UTI Hiatal hernia Morbid obesity Plan: Neuro: Avoid sedatives and narcotics. Monitor neuro status. CV: Monitor HR and BP keep MAP>65mmHg Pulm: Continue with oxygen keep sat >92% Continue with bronchodilators, IV steroids- On Solumederol 40mg Q6 NIPPV PRN for resp distress. Pulm is following- Dr. Keene. Patient expressed to Dr. Keene and me that she does not want any intubation. ID: Continue Empiric antibiotic coverage with vancomycin/Cefepime. Nasal washings for influenza A and B negative Follow-up cultures, urine cx: GNR Heme: Monitor CBC GI: On PO diet Renal/: Monitor renal function, electrolytes replacement as needed. D/c IVF Endocrine: Watch for hyperglycemia, SSI for glycemic control Prophylaxis: Pepcid/SCDs/Lovenox. Palliative care consulted to asses with goals of care. Level 3 Marianna Cadet MD Jun 02, 2017 07:21
[2017-06-02 08:00] LABS: AUTOMATED NEUTROPHIL # 5.5 TH/MM3 (1.8-7.7); BASOPHIL % 0.1 % (0.0-2.0); HEMO FLAGS DIFF FINAL; LYMPH % 7.6 % (9.0-44.0); LYMPHOCYTE # 0.5 TH/MM3 (1.0-4.8); MEAN CELL VOLUME 97.2 FL (80.0-100.0); MEAN CORPUSCULAR HEMOGLOBIN 30.3 PG (27.0-34.0); MEAN CORPUSCULAR HGB CONC 31.2 % (32.0-36.0); MONO % 4.3 % (0.0-8.0); PLATELET COUNT 159 TH/MM3 (150-450); RED BLOOD COUNT 4.11 MIL/MM3 (4.00-5.30); WHITE BLOOD COUNT 6.2 TH/MM3 (4.0-11.0)
[2017-06-02] MEDS: CHLORHEXIDINE 0.12% (ORAL KIT) 15 ML CUP MT SCH ×2 (08:00→20:00)
[2017-06-02 08:14] LABS: ANION GAP 6 MEQ/L (5-15); AST (GOT) 13 U/L (15-37); BICARBONATE 35.2 MEQ/L (21.0-32.0); BLOOD UREA NITROGEN 17 MG/DL (7-18); CHLORIDE 101 MEQ/L (98-107); GLOMERULAR FILTRATION RATE 113 ML/MIN (>89); POTASSIUM 4.1 MEQ/L (3.5-5.1); SODIUM (NA) 142 MEQ/L (136-145)
[2017-06-02 08:15] LABS: ALT (GPT) 37 U/L (10-53)
[2017-06-02 08:18] LABS: ALKALINE PHOSPHATASE 45 U/L (45-117); TOTAL BILIRUBIN ADULT 0.3 MG/DL (0.2-1.0)
[2017-06-02] MEDS ORDERED: FUROSEMIDE 20 MG/2 ML VIAL IV PUSH ONE (08:30)
[2017-06-02] MEDS: VANCOMYCIN INJ 1,700 MG in SODIUM CHLORID 0.9% 500 ML INJ 500 ML IV SCH (08:54)
[2017-06-02] MEDS: SENNOSIDES SYRUP 8.8 MG/5 ML CUP PO SCH (08:55)
[2017-06-02] MEDS: DOCUSATE SODIUM 100 MG CAP PO SCH ×2 (08:55→20:52)
[2017-06-02] MEDS: SODIUM CHLORIDE 0.9% FLUSH 10 ML FLUSH IV FLUSH SCH ×2 (08:56→20:52)
[2017-06-02] MEDS: OFEV 100 MG PO SCH ×2 (09:00→20:51)
[2017-06-02] MEDS: FAMOTIDINE 20 MG/2 ML VIAL IV PUSH SCH ×2 (09:00→20:52)
--- NOTE | 2017-06-02 13:21 | HHI.PR ---
Subjective Remarks doing better off bipap no chest pain Objective Vital Signs Date Time Temp Pulse Resp B/P (MAP) Pulse Ox O2 Delivery O2 Flow Rate FiO2 06/02/17 13:00 82 35 143/70 (94) 89 06/02/17 12:01 98.0 86 44 156/65 (95) 88 06/02/17 12:00 89 Nasal Cannula 3.00 40 06/02/17 12:00 76 06/02/17 11:00 79 40 144/70 (94) 92 06/02/17 10:00 85 45 154/76 (102) 87 06/02/17 10:00 85 06/02/17 09:00 67 24 122/65 (84) 95 06/02/17 08:06 99 Nasal Cannula 3.00 06/02/17 08:00 99 Nasal Cannula 3.00 40 06/02/17 08:00 97.8 67 30 130/63 (85) 99 06/02/17 08:00 67 06/02/17 07:00 65 25 117/58 (77) 100 06/02/17 06:00 66 06/02/17 06:00 66 25 137/64 (88) 100 06/02/17 05:00 68 34 140/67 (91) 97 06/02/17 04:00 97 Bi-Pap 40 06/02/17 04:00 64 06/02/17 04:00 96.7 64 29 137/66 (89) 97 06/02/17 03:45 92 40 06/02/17 02:05 96 40 06/02/17 02:00 64 06/02/17 00:00 64 06/02/17 00:00 100 Bi-Pap 40 06/02/17 00:00 97.7 64 27 124/60 (81) 100 06/01/17 23:15 98 Nasal Cannula 4.00 06/01/17 22:00 74 06/01/17 21:53 95 40 06/01/17 20:04 90 40 06/01/17 20:00 97 Bi-Pap 40 06/01/17 20:00 78 06/01/17 20:00 98.0 78 28 158/79 (105) 90 06/01/17 18:00 70 06/01/17 18:00 70 25 137/74 (95) 93 06/01/17 18:00 70 25 137/74 (95) 93 06/01/17 17:10 91 35 06/01/17 17:00 72 06/01/17 17:00 72 19 143/68 (93) 97 06/01/17 16:00 Nasal Cannula 4.00 40 06/01/17 16:00 80 28 142/75 (97) 94 06/01/17 16:00 80 06/01/17 15:00 77 27 149/72 (97) 95 06/01/17 14:00 77 31 145/70 (95) 95 06/01/17 14:00 77 I/O 06/01/17 06/01/17 06/01/17 06/02/17 06/02/17 06/02/17 07:00 15:00 23:00 07:00 15:00 23:00 Intake Total 620 ml 0 ml 997 ml Balance 620 ml 0 ml 997 ml Intake Oral 0 ml IV Total 620 ml 997 ml # Voids 1 5 2 # Bowel Movements 0 0 Result Diagram: 06/02/17 0547 06/02/17 0547 Objective Remarks GENERAL APPEARANCE: . She looks Cushingoid. LUNGS: Bilateral basal crackles. HEART: S1, S2. ABDOMEN: Soft. It is obese. EXTREMITIES: Trace edema. No cyanosis. NEUROLOGIC: Alert, awake. Moves all extremities. Assessment and Plan Assessment and Plan ASSESSMENT AND PLAN 1. Hypoxic respiratory failure. 2. Pulmonary fibrosis, acute exacerbation. 3. Possible overlying pneumonia. better cont same tx wean off fio2 as tolerated keep in icu cont abx iv steroids Discussed with Dr Felix in details.. Brandon Keene MD Jun 02, 2017 13:21
--- NOTE | 2017-06-02 13:38 | PD.CONS ---
Consult Service Palliative Care Consult Requested By Dr. Avila Primary Care Physician Demario Avila MD Reason for Consultation a. To assist with evaluation and management of symptoms including: shortness of breath, debility. b. To assist medical decision maker(s) with: better understanding of current medical conditions; weighing benefits/burdens of medical treatment options; making medical treatment decisions. . HPI History of Present Illness Mrs. Mera is a 67-year-old female with a medical history significant for end- stage pulmonary fibrosis, asthma, COPD, obesity, Zamorano's esophagus. She presented to ED [facility] from [facility] for evaluation of worsening hypoxia on supplemental oxygen. EMS record reporting 50% pulse oximeter with capnography of 70 upon their arrival. Patient was placed on a nonrebreather mask and transported to the emergency room. Upon ED arrival, patient was placed on a Ventimask, progress to BiPAP with full facemask with settings +16/+8 FiO2 80%. Chest x-ray revealing bilateral central consolidative infiltrates and peripheral interstitial opacities. Laboratory workup revealing WBC 10.2, Hgb 14.1, platelet count 199. Carbon dioxide 43.1, BUN/creatinine 21/0.78. Patient was admitted to medical ICU for further monitoring and management. Pulmonology, Dr. Keene consulted on 06/01/17 for evaluation of respiratory failure. Recommended to continue on IV steroids and IV antibiotics for management of acute pulmonary fibrosis exacerbation. Patient was weaned off BiPAP, transitioned to oxygen via nasal cannula 4 L. Palliative care consulted for clarifications of goals of care in the setting of end-stage pulmonary fibrosis. Reviewed past medical history. Patient with multiple acute hospitalizations and ED visits secondary to respiratory failure, pulmonary fibrosis and hypoxia. Most recently 05/11/17 to 05/15/17 secondary to respiratory failure. Pulmonology, Dr. Thacker consulted. CT scan revealed extensive pulmonary infiltrates with pulmonary fibrosis. Previous hospitalization 03/08/17 to secondary to hypoxia. PulmonologyDr. thacker was again consulted. Patient was treated with doxycycline for sinus infection. Patient seen in the medical ICU. Resting in bed in no acute distress. Patient' s brothers Irvin and Michael at the bedside, boyfriend Irvin Ruiz present as well. Reviewed patient's past medical history, events leading to this hospitalization, clinical course and current medical management to include recommendations by pulmonology. Reviewed likely trajectory of illness, poor long-term prognosis. Patient verbalizing comfort-directed goals. Hospice philosophy and benefits introduced. Reviewed that patient will likely require long-term placement given higher level of needs. Family in agreement with hospice consultation. Community DNR signed by patient. Case discussed with Dr. Cadet. . Function/Cognitive Trajectory Patient resident [facility] since March 2017. Patient bed to wheelchair bound secondary to progressive weakness and increased shortness of breath. Able to pivot transfer 1 person. Patient requiring full assistance with all ADLs beside feedings. No cognitive decline reported. . Review of Systems Constitutional: COMPLAINS OF: Fatigue, DENIES: Fever, Weight loss Endocrine: DENIES: Heat/cold intolerance Eyes: DENIES: Blurred vision, Eye pain Ears, nose, mouth, throat: DENIES: Hearing loss, Nasal discharge, Throat pain, Hoarseness Respiratory: COMPLAINS OF: Cough, Sputum production, Shortness of breath Cardiovascular: COMPLAINS OF: Dyspnea on Exertion, Lower Extremity Edema, Orthopnea, DENIES: Chest pain Gastrointestinal: DENIES: Abdominal pain, Nausea, Vomiting Genitourinary: DENIES: Urinary frequency Musculoskeletal: DENIES: Back pain, Neck pain Integumentary: DENIES: Abnormal pigmentation Hematologic/Lymphatics: COMPLAINS OF: Bruising Immunologic/Allergic: COMPLAINS OF: Eczema Neurologic: DENIES: Speech Problems, Tremor Psychiatric: COMPLAINS OF: Anxiety, DENIES: Confusion, Mood changes, Depression Past Family Social History Coded Allergies: amoxicillin (Unverified Adverse Reaction, Intermediate, GI UPSET, 03/08/17) clavulanic acid (Unverified Adverse Reaction, Intermediate, GI UPSET, 03/08) Uncoded Allergies: SOME TAPES -RED SAMANTHA (Adverse Reaction, Mild, 03/08/17) LEAVES RED SAMANTHA Past Medical History End-stage pulmonary fibrosis Barrettes esophagitis GERD Allergic rhinitis Asthma Hypertension Obesity . Past Surgical History Hysterectomy and bilateral salpingo-oophorectomy Tonsillectomy Laparoscopic cholecystectomy . Reported Medications Bactrim DS (Sulfamethoxazole-Trimethoprim) 800-160 Mg Tab 1 Tab PO BID 5 Days Lasix (Furosemide) 20 Mg Tab 20 Mg PO EVERY OTHER DAY Xanax (Alprazolam) 0.25 Mg Tab 0.25 Mg PO Q8H PRN Albuterol Neb (Albuterol Sulfate) 1.25 Mg/3 Ml Neb 1.25 Mg NEB Q4HR NEB 30 Days Prednisone 10 Mg Tab 10 Mg PO DIRECTED 30 Days [oxygen] Unknown Dose VIDA.CANULA CONTINUOUS Florastor (Saccharomyces Boulardii) 250 Mg Cap 250 Mg PO BID Zofran (Ondansetron HCl) 4 Mg Tab 4 Mg PO Q6HR PRN Benadryl Allergy (Diphenhydramine HCl) 25 Mg Cap 1 Tab PO HS Ofev (Nintedanib) 100 Mg Cap 100 Mg PO Q12H Potassium Chloride ER (Potassium Chloride) 8 Meq Cap 8 Meq PO DAILY Enoxaparin Inj (Enoxaparin Sodium) 30 Mg/0.3ML Syr 30 Mg SQ DAILY Fluticasone Nasal [employer] 50 Mcg/Act Naspr 50 Mcg EACH NARE BID D3 Maximum Strength (Cholecalciferol) 5,000 Unit Cap 50,000 Units PO WEEKLY Zantac (Ranitidine HCl) 150 Mg Tab 150 Mg PO DAILY Omeprazole 20 Mg Tab 20 Mg PO BID . Current Medications Medications (Trade) Dose Ordered Sig/Edgar Route Start Time Stop Time Status Last Admin (NS Flush) 2 ml UNSCH PRN IVF 05/31/17 22:45 (NS Flush) 2 ml UNSCH PRN IV FLUSH 06/01/17 00:45 (NS Flush) 2 ml BID IV FLUSH 06/01/17 09:00 06/02/17 08:56 (Tylenol) 650 mg Q6H PRN PO 06/01/17 00:45 (Duoneb Neb) 1 ampule Q4HR NEB NEB 06/01/17 04:00 06/02/17 12:14 (Albuterol Neb) 2.5 mg Q2HR NEB PRN INH 06/01/17 00:45 (Peridex 0.12% Liq) 15 ml BID@08,20 MT 06/01/17 08:00 (Pepcid Inj) 20 mg Q12HR IV PUSH 06/01/17 09:00 06/02/17 09:00 (Lovenox Inj) 40 mg Q24H SQ 06/01/17 00:45 06/01/17 23:09 Miscellaneous Information 1 Q361D XX 06/01/17 00:45 (Chlorhexidine 2% Cloth) 3 pack Taper DAILY@04 TOP 06/01/17 04:00 05/28/18 03:59 06/02/17 04:00 (Chlorhexidine 2% Cloth) 3 pack UNSCH PRN TOP 06/01/17 00:45 Cefepime HCl 1000 mg/Sodium Chloride 100 ml @ 200 mls/hr Q8H IV 06/01/17 10:00 06/02/17 08:54 Pharmacy Profile Note 0 ml @ 0 mls/hr UNSCH OTHER 06/01/17 01:00 Vancomycin HCl 1700 mg/Sodium Chloride 517 ml @ 250 mls/hr Q18H IV 06/01/17 14:00 06/02/17 08:54 (SoluMEDROL INJ) 40 mg Q6HR IV PUSH 06/01/17 06:00 06/02/17 12:34 Miscellaneous Information SPECIFIC LAB TO BE ... ONCE ONCE .XX 06/03/17 19:45 06/03/17 19:46 (Cardizem) 60 mg Q6HR PO 06/01/17 07:30 06/02/17 12:34 (Apresoline Inj) 10 mg Q6H PRN IV PUSH 06/01/17 07:30 (D50w (Vial) Inj) 50 ml UNSCH PRN IV PUSH 06/01/17 07:30 (Glucagon Inj) 1 mg UNSCH PRN OTHER 06/01/17 07:30 (NovoLIN R SUPPLEMENTAL SCALE) 1 Q6HR SQ 06/01/17 07:30 Patient Own Medication PT OWN MED: OFEV 100MG (NINTEDAN... BID PO 06/01/17 21:00 (Senna Liq) 8.8 mg DAILY PO 06/02/17 09:00 (Colace) 100 mg BID PO 06/02/17 09:00 06/02/17 08:55 Family History No family history of pulmonary fibrosis. Mother of heart failure at 82. She had diabetes. Father at 61 of stroke, had diabetes. . Substance Use Tobacco: She quit smoking in 1991, smoked up to two packs a day and smoked for 20 years. Alcohol: None. Prescription med abuse: None. Illicits: None. . Psychosocial History Patient is originally from [place]. Moved [place] 46 years ago. He is single, never . No children. 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 . Spiritual/Cultural Factors Restorationist [place]. . Living Will: Copy in medical record Health Care Surrogate: Copy in medical record Durable Power of Facing Grinder: Copy in medical record Date completed: 05/31/2015. Health Care Surrogate(s): Brother Michael Mera. . Documented care wishes: Living well with standard verbiage as it pertains to end stage condition or persistent vegetative state. . Today's verbally stated goals: DNR/DNI. Patient wishing to pursue conservative management, considering comfort -of care with hospice. . Family/friends goals: Family fully supportive of patient's wishes. . Ethical and Legal Issues No ethical legal issues identified. Physical Exam Vital Signs Date Time Temp Pulse Resp B/P (MAP) Pulse Ox O2 Delivery O2 Flow Rate FiO2 06/02/17 13:00 82 35 143/70 (94) 89 06/02/17 12:01 98.0 86 44 156/65 (95) 88 06/02/17 12:00 89 Nasal Cannula 3.00 40 06/02/17 12:00 76 06/02/17 11:00 79 40 144/70 (94) 92 06/02/17 10:00 85 45 154/76 (102) 87 06/02/17 10:00 85 06/02/17 09:00 67 24 122/65 (84) 95 06/02/17 08:06 99 Nasal Cannula 3.00 06/02/17 08:00 99 Nasal Cannula 3.00 40 06/02/17 08:00 97.8 67 30 130/63 (85) 99 06/02/17 08:00 67 06/02/17 07:00 65 25 117/58 (77) 100 06/02/17 06:00 66 06/02/17 06:00 66 25 137/64 (88) 100 06/02/17 05:00 68 34 140/67 (91) 97 06/02/17 04:00 97 Bi-Pap 40 06/02/17 04:00 64 06/02/17 04:00 96.7 64 29 137/66 (89) 97 06/02/17 03:45 92 40 06/02/17 02:05 96 40 06/02/17 02:00 64 06/02/17 00:00 64 06/02/17 00:00 100 Bi-Pap 40 06/02/17 00:00 97.7 64 27 124/60 (81) 100 06/01/17 23:15 98 Nasal Cannula 4.00 06/01/17 22:00 74 06/01/17 21:53 95 40 06/01/17 20:04 90 40 06/01/17 20:00 97 Bi-Pap 40 06/01/17 20:00 78 06/01/17 20:00 98.0 78 28 158/79 (105) 90 06/01/17 18:00 70 06/01/17 18:00 70 25 137/74 (95) 93 06/01/17 18:00 70 25 137/74 (95) 93 06/01/17 17:10 91 35 06/01/17 17:00 72 06/01/17 17:00 72 19 143/68 (93) 97 06/01/17 16:00 Nasal Cannula 4.00 40 06/01/17 16:00 80 28 142/75 (97) 94 06/01/17 16:00 80 06/01/17 15:00 77 27 149/72 (97) 95 06/01/17 14:00 77 31 145/70 (95) 95 06/01/17 14:00 77 Exam CONSTITUTIONAL/GENERAL: Obese female in no acute distress. TUBES/LINES/DRAINS: PIV's, nasal cannula. SKIN: No jaundice, rashes, or lesions. Ecchymoses on upper extremities. No wounds seen anteriorly. Skin temperature appropriate. Not diaphoretic. HEAD: Atraumatic. Normocephalic. EYES: Pupils equal and round and reactive. Extraocular motions intact. ENT: Hearing grossly normal. Nose without bleeding or purulent drainage. Moist oral mucosa. NECK: Trachea midline. Supple, nontender. No palpable thyroid enlargement or nodularity. CARDIOVASCULAR: Regular rate and rhythm without murmurs. Peripheral pulses symmetric. RESPIRATORY/CHEST: Symmetric, unlabored respirations. Bilateral basal crackles. O2 via nasal cannula. GASTROINTESTINAL: Abdomen soft, obese, round, nontender. No guarding. Bowel sounds present. GENITOURINARY: Without palpable bladder distension. MUSCULOSKELETAL: Extremities without clubbing, cyanosis. No mottling or clubbing. Edema to bilateral lower extremities. NEUROLOGICAL: Awake and alert. Motor and sensory grossly within normal limits. Follows commands. Cognitively sharp. Moves all extremities. PSYCHIATRIC: Calm, cooperative. . Diagnostic Tests Laboratory Laboratory Tests Test 05/31/17 22:50 05/31/17 23:00 05/31/17 23:08 06/01/17 02:30 White Blood Count 10.2 TH/MM3 (4.0-11.0) Red Blood Count 4.58 MIL/MM3 (4.00-5.30) Hemoglobin 14.1 GM/DL (11.6-15.3) Hematocrit 43.1 % (35.0-46.0) Mean Corpuscular Volume 94.2 FL (80.0-100.0) Mean Corpuscular Hemoglobin 30.9 PG (27.0-34.0) Mean Corpuscular Hemoglobin Concent 32.8 % (32.0-36.0) Red Cell Distribution Width 16.0 % (11.6-17.2) Platelet Count 199 TH/MM3 (150-450) Mean Platelet Volume 8.7 FL (7.0-11.0) Neutrophils (%) (Auto) 76.8 % (16.0-70.0) Lymphocytes (%) (Auto) 13.2 % (9.0-44.0) Monocytes (%) (Auto) 9.4 % (0.0-8.0) Eosinophils (%) (Auto) 0.1 % (0.0-4.0) Basophils (%) (Auto) 0.5 % (0.0-2.0) Neutrophils # (Auto) 7.8 TH/MM3 (1.8-7.7) Lymphocytes # (Auto) 1.3 TH/MM3 (1.0-4.8) Monocytes # (Auto) 1.0 TH/MM3 (0-0.9) Eosinophils # (Auto) 0.0 TH/MM3 (0-0.4) Basophils # (Auto) 0.0 TH/MM3 (0-0.2) CBC Comment AUTO DIFF Differential Comment AUTO DIFF CONFIRMED Platelet Estimate NORMAL (NORMAL) Platelet Morphology Comment NORMAL (NORMAL) Prothrombin Time 10.5 SEC (9.8-11.6) Prothromb Time International Ratio 1.0 RATIO Activated Partial Thromboplast Time 21.9 SEC (24.3-30.1) Blood Urea Nitrogen 21 MG/DL (7-18) Creatinine 0.78 MG/DL (0.50-1.00) Random Glucose 111 MG/DL (74-106) Total Protein 6.9 GM/DL (6.4-8.2) Albumin 3.1 GM/DL (3.4-5.0) Calcium Level 9.2 MG/DL (8.5-10.1) Magnesium Level 2.2 MG/DL (1.5-2.5) Alkaline Phosphatase 54 U/L (45-117) Aspartate Amino Transf (AST/SGOT) 38 U/L (15-37) Alanine Aminotransferase (ALT/SGPT) 48 U/L (10-53) Total Bilirubin 0.4 MG/DL (0.2-1.0) Sodium Level 138 MEQ/L (136-145) Potassium Level 4.8 MEQ/L (3.5-5.1) Chloride Level 91 MEQ/L (98-107) Carbon Dioxide Level 43.1 MEQ/L (21.0-32.0) Anion Gap 4 MEQ/L (5-15) Estimat Glomerular Filtration Rate 74 ML/MIN (>89) Lactic Acid Level 1.6 mmol/L (0.4-2.0) Total Creatine Kinase 61 U/L (26-192) Troponin I LESS THAN 0.02 NG/ML B-Type Natriuretic Peptide 15 PG/ML (0-100) Blood Gas Puncture Site LT RADIAL Blood Gas Patient Temperature 37.0 Blood Gas HCO3 45 mmol/L (22-26) Blood Gas Base Excess 18.3 mmol/L (-2-2) Blood Gas Oxygen Saturation 87 % (90-100) Arterial Blood pH 7.34 (7.380-7.420) Arterial Blood Partial Pressure CO2 85 mmHg (38-42) Arterial Blood Partial Pressure O2 59 mmHG (61-120) Arterial Blood Oxygen Content 15.9 Vol % (12.0-20.0) Arterial Blood Carboxyhemoglobin 1.9 % (0-4) Arterial Blood Methemoglobin 0.6 % (0-2) Blood Gas Hemoglobin 12.9 G/DL (12.0-16.0) Oxygen Delivery Device VENTI MASK Blood Gas Liter Flow 6 L/M Blood Gas Inspired Oxygen 50 % Urine Color YELLOW (YELLW/STRAW) Urine Turbidity HAZY (CLEAR) Urine pH 6.0 (5.0-8.5) Urine Specific [place] 1.022 (1.002-1.035) Urine Protein TRACE mg/dL (NEG-TRACE) Urine Glucose (UA) NEG mg/dL (NEG) Urine Ketones NEG mg/dL (NEG) Urine Occult Blood MOD (NEG) Urine Nitrite NEG (NEG) Urine Bilirubin NEG (NEG) Urine Urobilinogen 2.0 MG/DL (LESS THAN Urine Leukocyte Esterase LARGE (NEG) Urine RBC 4 /hpf (0-3) Urine WBC 54 /hpf (0-5) Urine Squamous Epithelial Cells 1 /hpf (0-5) Urine Bacteria MANY /hpf (NONE) Urine Hyaline Casts 11 /lpf (RARE) Urine Mucus MANY /lpf (OCC) Microscopic Urinalysis Comment CULTURE INDICATED Nasal Screen MRSA (PCR) MRSA NOT DETECTED (NOT Test 06/01/17 08:20 06/01/17 08:45 06/01/17 09:32 06/01/17 14:33 White Blood Count 9.1 TH/MM3 (4.0-11.0) Red Blood Count 4.26 MIL/MM3 (4.00-5.30) Hemoglobin 13.0 GM/DL (11.6-15.3) Hematocrit 40.5 % (35.0-46.0) Mean Corpuscular Volume 95.1 FL (80.0-100.0) Mean Corpuscular Hemoglobin 30.6 PG (27.0-34.0) Mean Corpuscular Hemoglobin Concent 32.2 % (32.0-36.0) Red Cell Distribution Width 15.7 % (11.6-17.2) Platelet Count 162 TH/MM3 (150-450) Mean Platelet Volume 8.1 FL (7.0-11.0) Neutrophils (%) (Auto) 93.7 % (16.0-70.0) Lymphocytes (%) (Auto) 5.2 % (9.0-44.0) Monocytes (%) (Auto) 1.0 % (0.0-8.0) Eosinophils (%) (Auto) 0.0 % (0.0-4.0) Basophils (%) (Auto) 0.1 % (0.0-2.0) Neutrophils # (Auto) 8.6 TH/MM3 (1.8-7.7) Lymphocytes # (Auto) 0.5 TH/MM3 (1.0-4.8) Monocytes # (Auto) 0.1 TH/MM3 (0-0.9) Eosinophils # (Auto) 0.0 TH/MM3 (0-0.4) Basophils # (Auto) 0.0 TH/MM3 (0-0.2) CBC Comment DIFF FINAL Differential Comment Blood Urea Nitrogen 19 MG/DL (7-18) Creatinine 0.72 MG/DL (0.50-1.00) Random Glucose 143 MG/DL (74-106) Calcium Level 8.5 MG/DL (8.5-10.1) Phosphorus Level 3.7 MG/DL (2.5-4.9) Magnesium Level 2.1 MG/DL (1.5-2.5) Sodium Level 139 MEQ/L (136-145) Potassium Level 4.2 MEQ/L (3.5-5.1) Chloride Level 95 MEQ/L (98-107) Carbon Dioxide Level 38.4 MEQ/L (21.0-32.0) Anion Gap 6 MEQ/L (5-15) Estimat Glomerular Filtration Rate 81 ML/MIN (>89) Blood Gas Puncture Site RT RADIAL RT RADIAL Blood Gas Patient Temperature 98.6 98.6 Blood Gas HCO3 44 mmol/L (22-26) 42 mmol/L (22-26) Blood Gas Base Excess 16.9 mmol/L (-2-2) 14.7 mmol/L (-2-2) Blood Gas Oxygen Saturation 94 % (90-100) 91 % (90-100) Arterial Blood pH 7.31 (7.380-7.420) 7.28 (7.380-7.420) Arterial Blood Partial Pressure CO2 90 mmHg (38-42) 92 mmHg (38-42) Arterial Blood Partial Pressure O2 90 mmHg (61-120) 75 mmHg (61-120) Arterial Blood Oxygen Content 17.1 Vol % (12.0-20.0) 16.2 Vol % (12.0-20.0) Arterial Blood Carboxyhemoglobin 1.6 % (0-4) 1.4 % (0-4) Arterial Blood Methemoglobin 1.1 % (0-2) 1.0 % (0-2) Blood Gas Hemoglobin 13.0 G/DL (12.0-16.0) 12.6 G/DL (12.0-16.0) Oxygen Delivery Device NASAL CANNULA BIPAP 16/+8 Blood Gas Liter Flow 4 L/M Blood Gas Inspired Oxygen 40 % Test 06/02/17 05:47 White Blood Count 6.2 TH/MM3 (4.0-11.0) Red Blood Count 4.11 MIL/MM3 (4.00-5.30) Hemoglobin 12.5 GM/DL (11.6-15.3) Hematocrit 40.0 % (35.0-46.0) Mean Corpuscular Volume 97.2 FL (80.0-100.0) Mean Corpuscular Hemoglobin 30.3 PG (27.0-34.0) Mean Corpuscular Hemoglobin Concent 31.2 % (32.0-36.0) Red Cell Distribution Width 16.0 % (11.6-17.2) Platelet Count 159 TH/MM3 (150-450) Mean Platelet Volume 8.5 FL (7.0-11.0) Neutrophils (%) (Auto) 88.0 % (16.0-70.0) Lymphocytes (%) (Auto) 7.6 % (9.0-44.0) Monocytes (%) (Auto) 4.3 % (0.0-8.0) Eosinophils (%) (Auto) 0.0 % (0.0-4.0) Basophils (%) (Auto) 0.1 % (0.0-2.0) Neutrophils # (Auto) 5.5 TH/MM3 (1.8-7.7) Lymphocytes # (Auto) 0.5 TH/MM3 (1.0-4.8) Monocytes # (Auto) 0.3 TH/MM3 (0-0.9) Eosinophils # (Auto) 0.0 TH/MM3 (0-0.4) Basophils # (Auto) 0.0 TH/MM3 (0-0.2) CBC Comment DIFF FINAL Differential Comment Blood Urea Nitrogen 17 MG/DL (7-18) Creatinine 0.54 MG/DL (0.50-1.00) Random Glucose 132 MG/DL (74-106) Total Protein 6.0 GM/DL (6.4-8.2) Albumin 2.8 GM/DL (3.4-5.0) Calcium Level 8.6 MG/DL (8.5-10.1) Alkaline Phosphatase 45 U/L (45-117) Aspartate Amino Transf (AST/SGOT) 13 U/L (15-37) Alanine Aminotransferase (ALT/SGPT) 37 U/L (10-53) Total Bilirubin 0.3 MG/DL (0.2-1.0) Sodium Level 142 MEQ/L (136-145) Potassium Level 4.1 MEQ/L (3.5-5.1) Chloride Level 101 MEQ/L (98-107) Carbon Dioxide Level 35.2 MEQ/L (21.0-32.0) Anion Gap 6 MEQ/L (5-15) Estimat Glomerular Filtration Rate 113 ML/MIN (>89) Result Diagram: 06/02/17 0547 06/02/17 0547 Microbiology Microbiology Date/Time Source Procedure Growth Status 05/31/17 22:56 Blood Peripheral Aerobic Blood Culture - Preliminary NO GROWTH IN 2 DAYS Resulted 05/31/17 22:56 Blood Peripheral Anaerobic Blood Culture - Preliminary NO GROWTH IN 2 DAYS Resulted 05/31/17 22:39 Blood Peripheral Aerobic Blood Culture - Preliminary NO GROWTH IN 2 DAYS Resulted 05/31/17 22:39 Blood Peripheral Anaerobic Blood Culture - Preliminary NO GROWTH IN 2 DAYS Resulted 06/01/17 01:02 Nasal Washing Influenza Types A,B Antigen (DANIELLA) - Final NEGATIVE FOR FLU A AND B ANTIGEN.... Complete 05/31/17 23:08 Urine Clean Catch Urine Culture - Final Escherichia Coli Complete 05/31/17 00:00 Urine Catheterized Urine Legionella Antigen - Final PRESUMPTIVE NEGATIVE FOR LEGIONELLA P... Complete 05/31/17 00:00 Urine Catheterized Urine Streptococcus pneumoniae Antigen (M - Final PRESUMPTIVE NEGATIVE FOR STREPTOCOCCU... Complete Imaging Last Impressions Chest X-Ray 05/31/172236 Signed Impressions: Service Date/Time: Wednesday, May 31, 2017 22:48 - CONCLUSION: Stable bilateral central consolidative infiltrates and peripheral interstitial opacities. Larry Flores MD Patient/Family Conference Present at Family Conference: Patient, Brothers Michael and Irvin, boyfriend Irvin Ruiz. Family Conference Time (mins): 45 Family Conference Location: Bedside Issues Discussed: * Palliative care role, purpose, approach * Additional medical, psychosocial, and spiritual history * Patients general health, functional status, and cognitive changes in the months leading up to the current hospitalization * Patient/family understanding of the current medical problems -end-stage pulmonary fibrosis, physical deconditioning. * Patient/family understanding of prognosis -poor long-term prognosis * Patients goals of care as best understood from advance directives and/or conversations and/or values * Current medical treatment options and benefits/burdens of those options * Likely scenarios comparing ongoing aggressive care with a transition to comfort measures only * Questions answered to the best of my ability * Palliative care contact information provided * Hospice philosophy and benefits * Risks, benefits and limitations of CPR, intubation and mechanical ventilation given end-stage pulmonary fibrosis, profound debility . Assessment and Plan Disease Oriented Problem List: (1) Acute and chronic respiratory failure (2) Chronic idiopathic pulmonary fibrosis (3) Pneumonia (4) Physical deconditioning Symptom Scale: (1) Short of breath on exertion 0-10 Scale: 4 Comment: Secondary to end-stage pulmonary fibrosis (2) Debility 0-10 Scale: Unable to quantify Pertinent Non-Medical Issues Psychosocial: Patient is originally from [place]. Moved [place] 46 years ago. He is single, never . No children. 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 Spiritual: Restorationist [place] Legal: Advance directives completed. Ethical issues impacting care: No ethical issues identified. . Important Contacts Healthcare surrogate, brother Michael Mera Brother Irvin Mera Boyfriend Irvin Ruiz . Prognosis Mrs. Mera is a 67-year-old female with a medical history significant for end- stage pulmonary fibrosis, asthma, COPD, obesity, Zamorano's esophagus. She [facility] ED [facility] from [facility] for evaluation of worsening hypoxia on supplemental oxygen. Patient was admitted for acute on chronic respiratory failure, exacerbation of pulmonary fibrosis. Patient resident of [facility] facility secondary to profound physical deconditioning, requiring assistance with most ADLs. Poor overall prognosis for long-term survival. Patient appears hospice candidate should she elects comfort-directed care. . Code Status: No Code Plan * CODE STATUS: No code. DNR/DNI. Patient signed community DNR, copy in file. * HEALTHCARE DECISION-MAKING: Patient participating in medical decision-making. She appears to have a good understanding of her clinical condition and prognosis, retains the ability to weight benefits versus burdens of treatment options. Advance directives in chart, patient has designated her brother Michael Mera as healthcare surrogate. * GOALS OF CARE: Patient electing conservative management short of no code. Considering comfort-directed care with hospice given overall poor prognosis for long-term survival in the setting of end-stage pulmonary fibrosis. Family supportive of patient's wishes. Hospice referral has been made. * SYMPTOMS: = Dyspnea, secondary to end-stage pulmonary fibrosis. Pulmonology following. Currently tolerating O2 via nasal cannula. = Debility: Progressive, worsening since February. Patient requiring assistance with all ADLs. Likely to continue to worsen. * Case discussed with Dr. Cadet. * Palliative care contact information has been provided to patient and family. * Palliative care will continue to follow-up for further clarifications of goals of care as patient's clinical course continues to evolve. . Time Spent Total Floor Time (mins): 77 (Total time to include review and summarization of available medical records to include prior hospitalizations and ED visits, physical exam, goals of care conversation with patient and family, case discussion with Dr. Cadet, termite renewal inspector. ) >50% Counseling/Coord of Care: Yes Thank you for the opportunity to participate in the care of Ms. Mera. Attestation To help prompt me to consider important information that might be impacting today's encounter and assessment, information from prior notes written by myself or my colleagues may have been "brought forward" into today's note. My signature on this note, however, is an attestation that I personally performed the exam, history, and/or decision-making noted today, and, unless otherwise indicated, the interactions with patient, family, and staff as well as the review of records all occurred today. I also attest that the listed assessment and stated plan reflect my best clinical judgment today based on the combination of historical information, prior notes, and today's exam/ interactions. When time spent is documented, it refers only to time spent today by the signer, or if indicated, combined time spent today by collaborating physician/nurse practitioner. Vaishnavi Martinez Jun 02, 2017 13:38
[2017-06-03] VITALS (14 sets, daily range): BP systolic 132–169; BP diastolic 61–81; PULSE 61–84; RESP 20–33; TEMP 97.6–98; O2SAT 95–97
[2017-06-03] MEDS: methylPREDNISolone SOD SUCC 40 MG/1 ML VIAL IV PUSH SCH ×4 (00:10→17:01)
[2017-06-03] MEDS: ENOXAPARIN SODIUM 40 MG/0.4 ML SYRINGE SQ SCH (00:11)
[2017-06-03] MEDS: DILTIAZEM HCL 60 MG TAB PO SCH ×4 (00:11→17:01)
[2017-06-03] MEDS: RESP: ALBUTEROL 2.5 MG/IPRATROPIUM 0.5 MG NEB (SCH) NEB ×6 (00:13→19:12)
[2017-06-03] MEDS: CEFEPIME INJ 1,000 MG in SODIUM CHLORIDE 0.9% INJ 100 ML IV SCH ×3 (00:57→18:09)
[2017-06-03] MEDS: VANCOMYCIN INJ 1,700 MG in SODIUM CHLORID 0.9% 500 ML INJ 500 ML IV SCH (01:34)
[2017-06-03] MEDS: CHLORHEXIDINE GLUCONATE 2 % 1 PACK (2 CLOTHS) TOP SCH (03:03)
[2017-06-03] MEDS: INSULIN NovoLIN REGULAR SUPPLEMENTAL SCALE SQ SCH ×4 (05:44→17:09)
[2017-06-03 06:43] LABS: AUTOMATED NEUTROPHIL # 5.7 TH/MM3 (1.8-7.7); HEMATOCRIT 36.2 % (35.0-46.0); HEMO FLAGS DIFF FINAL; LYMPH % 5.2 % (9.0-44.0); LYMPHOCYTE # 0.3 TH/MM3 (1.0-4.8); MEAN CELL VOLUME 94.9 FL (80.0-100.0); MEAN CORPUSCULAR HEMOGLOBIN 31.1 PG (27.0-34.0); MEAN CORPUSCULAR HGB CONC 32.8 % (32.0-36.0); MONO % 4.7 % (0.0-8.0); NEUT % 90.1 % (16.0-70.0); PLATELET COUNT 149 TH/MM3 (150-450); RED BLOOD COUNT 3.81 MIL/MM3 (4.00-5.30); WHITE BLOOD COUNT 6.3 TH/MM3 (4.0-11.0)
[2017-06-03 07:17] LABS: BICARBONATE 39.3 MEQ/L (21.0-32.0); POTASSIUM 3.6 MEQ/L (3.5-5.1)
[2017-06-03] MEDS: CHLORHEXIDINE 0.12% (ORAL KIT) 15 ML CUP MT SCH ×2 (08:00→20:00)
[2017-06-03] MEDS: SODIUM CHLORIDE 0.9% FLUSH 10 ML FLUSH IV FLUSH SCH ×2 (09:00→21:58)
--- NOTE | 2017-06-03 09:09 | HHI.CCPN ---
Subjective Remarks/Hospital Course 67-year-old female with a medical history significant for poorly fibrosis with chronic CO2 retention who was brought in from an assisted living facility with a history of worsening shortness of breath for a day. Patient was noted to be hypoxic on arrival and was initially placed on a Ventimask followed by BiPAP with which her O2 sats came up in the low 90s. Patient was initiated on IV steroids, bronchodilators and empiric antibiotics. Her chest x-ray revealed bilateral infiltrates. Patient was accepted for admission by critical care medicine service. When I evaluated the patient in the ER she was on BiPAP with full facemask with settings +16/+8 FiO2 80%. It was difficult to obtain details of history as patient was dyspneic requiring BiPAP with full facemask. History was obtained by reviewing records and discussion with ER physician. 06/02 No events overnight. Off BIPAP and is on 4L oxygen with good sats. Afebrile. Awake. 06/03 Patient refused BIPAP overnight. Afebrile. Hospice consulted. On 4L oxygen with good sats. Afebrile. Hospice service consulted yesterday. Patient was made no code DNR . Objective Vital Signs Date Time Temp Pulse Resp B/P (MAP) Pulse Ox O2 Delivery O2 Flow Rate FiO2 06/03/17 08:00 98 Nasal Cannula 4.00 06/03/17 08:00 74 06/03/17 08:00 97.8 24 132/68 (89) 06/02/17 16:00 40 Intake and Output 06/03/17 06/03/17 06/03/17 07:59 15:59 23:59 Intake Total 857 ml Output Total 250 ml Balance 607 ml Result Diagram: 06/03/17 0432 06/03/17 0432 Other Results Laboratory Tests Test 06/03/17 04:32 White Blood Count 6.3 TH/MM3 Red Blood Count 3.81 MIL/MM3 Hemoglobin 11.9 GM/DL Hematocrit 36.2 % Mean Corpuscular Volume 94.9 FL Mean Corpuscular Hemoglobin 31.1 PG Mean Corpuscular Hemoglobin Concent 32.8 % Red Cell Distribution Width 16.0 % Platelet Count 149 TH/MM3 Mean Platelet Volume 8.9 FL Neutrophils (%) (Auto) 90.1 % Lymphocytes (%) (Auto) 5.2 % Monocytes (%) (Auto) 4.7 % Eosinophils (%) (Auto) 0.0 % Basophils (%) (Auto) 0.0 % Neutrophils # (Auto) 5.7 TH/MM3 Lymphocytes # (Auto) 0.3 TH/MM3 Monocytes # (Auto) 0.3 TH/MM3 Eosinophils # (Auto) 0.0 TH/MM3 Basophils # (Auto) 0.0 TH/MM3 CBC Comment DIFF FINAL Differential Comment Blood Urea Nitrogen 24 MG/DL Creatinine 0.53 MG/DL Random Glucose 159 MG/DL Calcium Level 8.6 MG/DL Sodium Level 144 MEQ/L Potassium Level 3.6 MEQ/L Chloride Level 101 MEQ/L Carbon Dioxide Level 39.3 MEQ/L Anion Gap 4 MEQ/L Estimat Glomerular Filtration Rate 115 ML/MIN Imaging Last Impressions Chest X-Ray 05/31/172236 Signed Impressions: Service Date/Time: Monday, May 31, 2017 22:48 - CONCLUSION: Stable bilateral central consolidative infiltrates and peripheral interstitial opacities. Larry Flores MD Objective Remarks GENERAL: Patient is 67 yo lying in bed in no resp distress SKIN: Warm and dry. HEAD: Normocephalic. EYES: No scleral icterus. No injection or drainage. NECK: Supple, trachea midline. No JVD or lymphadenopathy. CARDIOVASCULAR: Regular rate and rhythm without murmurs, gallops, or rubs. RESPIRATORY: Breath sounds equal bilaterally. Coarse BS GASTROINTESTINAL: Abdomen soft, non-tender, nondistended. MUSCULOSKELETAL: No cyanosis, or edema. Neuro: Awake, alert A/P Assessment and Plan 67-year-old female with: Acute on chronic respiratory failure Advanced pulmonary fibrosis Suspected pneumonia UTI Hiatal hernia Morbid obesity Plan: Neuro: Avoid sedatives and narcotics. Monitor neuro status. CV: Monitor HR and BP keep MAP>65mmHg Pulm: Continue with oxygen keep sat >92% Continue with bronchodilators, IV steroids- On Solumederol 40mg Q6 Pulm is following- Dr. Keene. Refused BIPAP overnight. Will give Diamox 250mg IV x1 ID: Continue Empiric antibiotic coverage with vancomycin/Cefepime. Nasal washings for influenza A and B negative Follow-up cultures, urine cx: E.coli. d/c Vanco Heme: Monitor CBC GI: On PO diet Renal/: Monitor renal function, electrolytes replacement as needed. Endocrine: SSI for glycemic control Prophylaxis: Pepcid/SCDs/Lovenox. Palliative care is following- Patient was made no code DNR and Hospice service consulted. Will sign off to [facility] and transfer to floor. Level 2 Marianna Cadet MD Jun 03, 2017 09:09
[2017-06-03] MEDS: FAMOTIDINE 20 MG/2 ML VIAL IV PUSH SCH ×2 (09:29→21:58)
[2017-06-03] MEDS: SENNOSIDES SYRUP 8.8 MG/5 ML CUP PO SCH (09:29)
[2017-06-03] MEDS: DOCUSATE SODIUM 100 MG CAP PO SCH ×2 (09:30→21:58)
[2017-06-03] MEDS: OFEV 100 MG PO SCH ×2 (09:36→18:09)
--- NOTE | 2017-06-03 14:18 | HHI.PR ---
Subjective Remarks _ Subjective better wants to leave icu No events overnight. Off BIPAP and is on 4L oxygen Hospice consulted. Objective Vital Signs Date Time Temp Pulse Resp B/P (MAP) Pulse Ox O2 Delivery O2 Flow Rate FiO2 06/03/17 08:00 98 Nasal Cannula 4.00 06/03/17 08:00 74 06/03/17 08:00 97.8 24 132/68 (89) 06/02/17 16:00 40 Intake and Output 06/03/17 06/03/17 06/03/17 07:59 15:59 23:59 Intake Total 857 ml Output Total 250 ml Balance 607 ml Result Diagram: 06/03/17 0432 06/03/17 0432 Other Results Laboratory Tests Test 06/03/17 04:32 White Blood Count 6.3 TH/MM3 Red Blood Count 3.81 MIL/MM3 Hemoglobin 11.9 GM/DL Hematocrit 36.2 % Mean Corpuscular Volume 94.9 FL Mean Corpuscular Hemoglobin 31.1 PG Mean Corpuscular Hemoglobin Concent 32.8 % Red Cell Distribution Width 16.0 % Platelet Count 149 TH/MM3 Mean Platelet Volume 8.9 FL Neutrophils (%) (Auto) 90.1 % Lymphocytes (%) (Auto) 5.2 % Monocytes (%) (Auto) 4.7 % Eosinophils (%) (Auto) 0.0 % Basophils (%) (Auto) 0.0 % Neutrophils # (Auto) 5.7 TH/MM3 Lymphocytes # (Auto) 0.3 TH/MM3 Monocytes # (Auto) 0.3 TH/MM3 Eosinophils # (Auto) 0.0 TH/MM3 Basophils # (Auto) 0.0 TH/MM3 CBC Comment DIFF FINAL Differential Comment Blood Urea Nitrogen 24 MG/DL Creatinine 0.53 MG/DL Random Glucose 159 MG/DL Calcium Level 8.6 MG/DL Sodium Level 144 MEQ/L Potassium Level 3.6 MEQ/L Chloride Level 101 MEQ/L Carbon Dioxide Level 39.3 MEQ/L Anion Gap 4 MEQ/L Estimat Glomerular Filtration Rate 115 ML/MIN Imaging Last Impressions Chest X-Ray 05/31/172236 Signed Impressions: Service Date/Time: Wednesday, May 31, 2017 22:48 - CONCLUSION: Stable bilateral central consolidative infiltrates and peripheral interstitial opacities. Larry Flores MD GENERAL: nad SKIN: Warm and dry. HEAD: Normocephalic. EYES: No scleral icterus. No injection or drainage. NECK: Supple, trachea midline. No JVD or lymphadenopathy. CARDIOVASCULAR: Regular rate and rhythm without murmurs, gallops, or rubs. RESPIRATORY: crackels GASTROINTESTINAL: Abdomen soft, non-tender, nondistended. MUSCULOSKELETAL: No cyanosis, or edema. Neuro: Awake, alert A/P Advanced pulmonary fibrosis ? pneumonia S/P Hypoxic res failure Plan: O2 as needed Continue with bronchodilators, IV steroids- Solumederol 40mg Q6 Refused BIPAP cont abx she is very poor prognosis overall I agree with hospice eval she is ok to leave icu SSI for glycemic control Pepcid/SCDs/Lovenox. Palliative care is following- Objective Vital Signs Date Time Temp Pulse Resp B/P (MAP) Pulse Ox O2 Delivery O2 Flow Rate FiO2 06/03/17 14:00 74 06/03/17 12:00 98.0 74 24 169/81 (110) 96 06/03/17 12:00 98 Nasal Cannula 4.00 06/03/17 12:00 74 06/03/17 11:29 95 Nasal Cannula 4.00 06/03/17 10:00 74 06/03/17 08:00 98 Nasal Cannula 4.00 06/03/17 08:00 74 06/03/17 08:00 97.8 74 24 132/68 (89) 96 06/03/17 08:00 98 Nasal Cannula 4.00 06/03/17 08:00 97.8 74 24 132/68 (89) 96 06/03/17 06:00 74 06/03/17 04:00 61 06/03/17 04:00 98 Nasal Cannula 4.00 06/03/17 04:00 97.8 61 28 143/67 (92) 96 06/03/17 02:00 64 06/03/17 00:00 98 Nasal Cannula 4.00 06/03/17 00:00 97.6 65 33 139/69 (92) 97 06/03/17 00:00 65 06/02/17 22:00 66 06/02/17 20:00 97.7 79 32 139/68 (91) 97 06/02/17 20:00 97 Nasal Cannula 4.00 06/02/17 20:00 79 06/02/17 19:46 93 Nasal Cannula 4.00 06/02/17 19:00 81 31 140/65 (90) 89 06/02/17 18:00 68 06/02/17 18:00 68 30 131/63 (85) 98 06/02/17 17:00 72 37 125/60 (81) 93 06/02/17 16:00 74 06/02/17 16:00 98 Nasal Cannula 3.00 40 06/02/17 16:00 97.9 74 38 131/73 (92) 97 06/02/17 15:00 77 41 120/73 (89) 95 I/O 06/02/17 06/02/17 06/02/17 06/03/17 06/03/17 06/03/17 07:00 15:00 23:00 07:00 15:00 23:00 Intake Total 997 ml 1067 ml 857 ml Output Total 750 ml 250 ml Balance 997 ml 317 ml 607 ml Intake Oral 350 ml 240 ml IV Total 997 ml 717 ml 617 ml Output Urine Total 750 ml 250 ml # Voids 2 4 # Bowel Movements 0 0 0 Result Diagram: 06/03/1743106/03/17431 Objective Remarks GENERAL APPEARANCE: . She looks Cushingoid. LUNGS: Bilateral basal crackles. HEART: S1, S2. ABDOMEN: Soft. It is obese. EXTREMITIES: Trace edema. No cyanosis. NEUROLOGIC: Alert, awake. Moves all extremities. Assessment and Plan Assessment and Plan ASSESSMENT AND PLAN 1. Hypoxic respiratory failure. 2. Pulmonary fibrosis, acute exacerbation. 3. Possible overlying pneumonia. better cont same tx wean off fio2 as tolerated keep in icu cont abx iv steroids Discussed with Dr Felix in details.. Brandon Keene MD Jun 03, 2017 14:18
[2017-06-03] MEDS ORDERED: PHARMACY ORDERED LAB ONE (19:45)
[2017-06-04] VITALS (8 sets, daily range): BP systolic 111–169; BP diastolic 70–81; PULSE 67–89; RESP 18–24; TEMP 97.4–98.8; O2SAT 90–96
[2017-06-04] MEDS: DILTIAZEM HCL 60 MG TAB PO SCH ×4 (00:29→17:31)
[2017-06-04] MEDS: ENOXAPARIN SODIUM 40 MG/0.4 ML SYRINGE SQ SCH (00:30)
[2017-06-04] MEDS: methylPREDNISolone SOD SUCC 40 MG/1 ML VIAL IV PUSH SCH ×4 (00:30→17:31)
[2017-06-04] MEDS: CEFEPIME INJ 1,000 MG in SODIUM CHLORIDE 0.9% INJ 100 ML IV SCH ×3 (02:26→17:31)
[2017-06-04] MEDS: RESP: ALBUTEROL 2.5 MG/IPRATROPIUM 0.5 MG NEB (SCH) NEB ×6 (03:32→19:23)
[2017-06-04] MEDS: CHLORHEXIDINE GLUCONATE 2 % 1 PACK (2 CLOTHS) TOP SCH (03:56)
[2017-06-04] MEDS: INSULIN NovoLIN REGULAR SUPPLEMENTAL SCALE SQ SCH ×4 (06:00→17:37)
[2017-06-04 07:30] LABS: AUTOMATED NEUTROPHIL # 7.5 TH/MM3 (1.8-7.7); BASOPHIL % 0.1 % (0.0-2.0); HEMATOCRIT 36.5 % (35.0-46.0); HEMO FLAGS DIFF FINAL; LYMPH % 3.9 % (9.0-44.0); LYMPHOCYTE # 0.3 TH/MM3 (1.0-4.8); MEAN CELL VOLUME 94.5 FL (80.0-100.0); MEAN CORPUSCULAR HGB CONC 32.8 % (32.0-36.0); MONO % 4.7 % (0.0-8.0); NEUT % 91.3 % (16.0-70.0); PLATELET COUNT 156 TH/MM3 (150-450); RED BLOOD COUNT 3.86 MIL/MM3 (4.00-5.30); RED CELL DISTRIBUTION WIDTH 15.9 % (11.6-17.2); WHITE BLOOD COUNT 8.2 TH/MM3 (4.0-11.0)
[2017-06-04] MEDS: CHLORHEXIDINE 0.12% (ORAL KIT) 15 ML CUP MT SCH ×2 (08:00→20:00)
[2017-06-04 08:10] LABS: BICARBONATE 39.2 MEQ/L (21.0-32.0); POTASSIUM 3.7 MEQ/L (3.5-5.1)
[2017-06-04] MEDS: OFEV 100 MG PO SCH ×2 (08:51→20:54)
[2017-06-04] MEDS: SODIUM CHLORIDE 0.9% FLUSH 10 ML FLUSH IV FLUSH SCH ×2 (08:52→20:53)
[2017-06-04] MEDS: FAMOTIDINE 20 MG/2 ML VIAL IV PUSH SCH ×2 (08:52→20:53)
[2017-06-04] MEDS: SENNOSIDES SYRUP 8.8 MG/5 ML CUP PO SCH (09:01)
[2017-06-04] MEDS: DOCUSATE SODIUM 100 MG CAP PO SCH ×2 (09:01→20:53)
--- NOTE | 2017-06-04 09:32 | HHI.PR ---
Subjective Remarks still not back to baseline from last discharge. Objective Vitals heart reg lung diminished air entry abd s/nt ext no pitting. Vital Signs Date Time Temp Pulse Resp B/P (MAP) Pulse Ox O2 Delivery O2 Flow Rate FiO2 06/04/17 09:04 93 Nasal Cannula 4.00 06/04/17 04:00 97.5 69 18 123/77 (92) 96 06/04/17 00:00 98.0 67 22 111/71 (84) 96 06/03/17 21:58 Nasal Cannula 4.00 40 06/03/17 21:07 73 06/03/17 20:00 97.8 75 20 135/67 (89) 95 06/03/17 19:12 97 Nasal Cannula 4.00 06/03/17 18:00 98.0 73 20 153/71 (98) 96 06/03/17 16:00 98.0 84 24 133/61 (85) 96 06/03/17 16:00 98 Nasal Cannula 4.00 06/03/17 16:00 74 06/03/17 14:00 74 06/03/17 12:00 98.0 74 24 169/81 (110) 96 06/03/17 12:00 98 Nasal Cannula 4.00 06/03/17 12:00 74 06/03/17 11:29 95 Nasal Cannula 4.00 06/03/17 10:00 74 Result Diagram: 06/04/17 0701 06/04/17 0701 A/P Problem List: (1) Chronic idiopathic pulmonary fibrosis ICD Codes: J84.112 - Idiopathic pulmonary fibrosis Status: Acute Plan: 1. advanced pulmonary fibrosis with acute flare/dyspnea. ?pna per pulmonary 2. uti continue solumedrol abx per pulmonary resp therapy says pt refused nebs for past 10 hrs. o2 anxiolytic requested by patient nutrition supplement pt talking with hospice but no decisions made dvt prophylaxis soila cont her TKI (2) Acute and chronic respiratory failure ICD Codes: J96.20 - Acute and chronic respiratory failure, unspecified whether with hypoxia or hypercapnia Status: Chronic (3) UTI (urinary tract infection) ICD Codes: N39.0 - Urinary tract infection, site not specified Status: Acute (4) Hypertension ICD Codes: I10 - Essential (primary) hypertension Status: Chronic All Zuniga MD Jun 04, 2017 09:32
[2017-06-04] MEDS: ALPRAZolam 0.25 MG TAB PO PRN (10:27)
--- NOTE | 2017-06-04 13:40 | HHI.PR ---
Subjective Remarks _ Subjective better left icu No events overnight. Objective Vital Signs Date Time Temp Pulse Resp B/P (MAP) Pulse Ox O2 Delivery O2 Flow Rate FiO2 06/03/17 08:00 98 Nasal Cannula 4.00 06/03/17 08:00 74 06/03/17 08:00 97.8 24 132/68 (89) 06/02/17 16:00 40 Intake and Output 06/03/17 06/03/17 06/03/17 07:59 15:59 23:59 Intake Total 857 ml Output Total 250 ml Balance 607 ml Result Diagram: 06/03/17 0432 06/03/17 0432 Other Results Laboratory Tests Test 06/03/17 04:32 White Blood Count 6.3 TH/MM3 Red Blood Count 3.81 MIL/MM3 Hemoglobin 11.9 GM/DL Hematocrit 36.2 % Mean Corpuscular Volume 94.9 FL Mean Corpuscular Hemoglobin 31.1 PG Mean Corpuscular Hemoglobin Concent 32.8 % Red Cell Distribution Width 16.0 % Platelet Count 149 TH/MM3 Mean Platelet Volume 8.9 FL Neutrophils (%) (Auto) 90.1 % Lymphocytes (%) (Auto) 5.2 % Monocytes (%) (Auto) 4.7 % Eosinophils (%) (Auto) 0.0 % Basophils (%) (Auto) 0.0 % Neutrophils # (Auto) 5.7 TH/MM3 Lymphocytes # (Auto) 0.3 TH/MM3 Monocytes # (Auto) 0.3 TH/MM3 Eosinophils # (Auto) 0.0 TH/MM3 Basophils # (Auto) 0.0 TH/MM3 CBC Comment DIFF FINAL Differential Comment Blood Urea Nitrogen 24 MG/DL Creatinine 0.53 MG/DL Random Glucose 159 MG/DL Calcium Level 8.6 MG/DL Sodium Level 144 MEQ/L Potassium Level 3.6 MEQ/L Chloride Level 101 MEQ/L Carbon Dioxide Level 39.3 MEQ/L Anion Gap 4 MEQ/L Estimat Glomerular Filtration Rate 115 ML/MIN Imaging Last Impressions Chest X-Ray 05/31/172236 Signed Impressions: Service Date/Time: Wednesday, May 31, 2017 22:48 - CONCLUSION: Stable bilateral central consolidative infiltrates and peripheral interstitial opacities. Larry Flores MD GENERAL: nad SKIN: Warm and dry. HEAD: Normocephalic. EYES: No scleral icterus. No injection or drainage. NECK: Supple, trachea midline. No JVD or lymphadenopathy. CARDIOVASCULAR: Regular rate and rhythm without murmurs, gallops, or rubs. RESPIRATORY: crackels GASTROINTESTINAL: Abdomen soft, non-tender, nondistended. MUSCULOSKELETAL: No cyanosis, or edema. Neuro: Awake, alert A/P Advanced pulmonary fibrosis ? pneumonia S/P Hypoxic res failure better Plan: Cont O2 as needed Continue with bronchodilators, IV steroids- Solumederol 40mg Q6 cont abx she is very poor prognosis overall I agree with hospice eval Objective Vital Signs Date Time Temp Pulse Resp B/P (MAP) Pulse Ox O2 Delivery O2 Flow Rate FiO2 06/04/17 09:04 93 Nasal Cannula 4.00 06/04/17 09:00 96 Nasal Cannula 4.00 06/04/17 08:00 98.8 69 22 131/70 (90) 92 06/04/17 04:00 97.5 69 18 123/77 (92) 96 06/04/17 00:00 98.0 67 22 111/71 (84) 96 06/03/17 21:58 Nasal Cannula 4.00 40 06/03/17 21:07 73 06/03/17 20:00 97.8 75 20 135/67 (89) 95 06/03/17 19:12 97 Nasal Cannula 4.00 06/03/17 18:00 98.0 73 20 153/71 (98) 96 06/03/17 16:00 98.0 84 24 133/61 (85) 96 06/03/17 16:00 98 Nasal Cannula 4.00 06/03/17 16:00 74 06/03/17 14:00 74 I/O 06/03/17 06/03/17 06/03/17 06/04/17 06/04/17 06/04/17 07:00 15:00 23:00 07:00 15:00 23:00 Intake Total 857 ml 100 ml 480 ml Output Total 250 ml Balance 607 ml 100 ml 480 ml Intake Oral 240 ml 480 ml IV Total 617 ml 100 ml Output Urine Total 250 ml # Voids 3 # Bowel Movements 0 Result Diagram: 06/04/1770006/04/17700 Objective Remarks GENERAL APPEARANCE: . She looks Cushingoid. LUNGS: Bilateral basal crackles. HEART: S1, S2. ABDOMEN: Soft. It is obese. EXTREMITIES: Trace edema. No cyanosis. NEUROLOGIC: Alert, awake. Moves all extremities. Assessment and Plan Assessment and Plan ASSESSMENT AND PLAN 1. Hypoxic respiratory failure. 2. Pulmonary fibrosis, acute exacerbation. 3. Possible overlying pneumonia. better cont same tx wean off fio2 as tolerated keep in icu cont abx iv steroids Discussed with Dr Felix in details.. Brandon Keene MD Jun 04, 2017 13:40
[2017-06-05] VITALS (8 sets, daily range): BP systolic 139–162; BP diastolic 77–94; PULSE 72–85; RESP 19–22; TEMP 97.1–97.5; O2SAT 87–96
[2017-06-05] MEDS: RESP: ALBUTEROL 2.5 MG/IPRATROPIUM 0.5 MG NEB (SCH) NEB ×3 (00:16→15:36)
[2017-06-05] MEDS: ENOXAPARIN SODIUM 40 MG/0.4 ML SYRINGE SQ SCH (00:31)
[2017-06-05] MEDS: CEFEPIME INJ 1,000 MG in SODIUM CHLORIDE 0.9% INJ 100 ML IV SCH ×2 (00:31→11:52)
[2017-06-05] MEDS: DILTIAZEM HCL 60 MG TAB PO SCH ×3 (00:31→11:52)
[2017-06-05] MEDS: methylPREDNISolone SOD SUCC 40 MG/1 ML VIAL IV PUSH SCH ×3 (00:31→11:52)
[2017-06-05] MEDS: CHLORHEXIDINE GLUCONATE 2 % 1 PACK (2 CLOTHS) TOP SCH (04:00)
[2017-06-05] MEDS: INSULIN NovoLIN REGULAR SUPPLEMENTAL SCALE SQ SCH ×3 (06:00→12:00)
[2017-06-05] MEDS: CHLORHEXIDINE 0.12% (ORAL KIT) 15 ML CUP MT SCH (08:00)
[2017-06-05] MEDS: OFEV 100 MG PO SCH (08:06)
[2017-06-05] MEDS: DOCUSATE SODIUM 100 MG CAP PO SCH (08:07)
[2017-06-05] MEDS: FAMOTIDINE 20 MG/2 ML VIAL IV PUSH SCH (08:07)
[2017-06-05] MEDS: SENNOSIDES SYRUP 8.8 MG/5 ML CUP PO SCH (08:08)
[2017-06-05] MEDS: SODIUM CHLORIDE 0.9% FLUSH 10 ML FLUSH IV FLUSH SCH (08:08)
[2017-06-05] MEDS: ALPRAZolam 0.25 MG TAB PO PRN (09:22)
[2017-06-05] MEDS: RESP: ALBUTEROL 2.5 MG/3 ML NEB (PRN) INH ×2 (09:28→13:28)
--- NOTE | 2017-06-05 12:37 | HHI.PR ---
Subjective Remarks asking for hospice care center Objective Vitals heart reg lung diminished bs bronson abd s/nt ext no edema Vital Signs Date Time Temp Pulse Resp B/P (MAP) Pulse Ox O2 Delivery O2 Flow Rate FiO2 06/05/17 09:30 96 Nasal Cannula 6.00 06/05/17 08:15 Nasal Cannula 4.00 40 06/05/17 08:00 97.1 80 22 139/91 (107) 87 06/05/17 06:48 72 06/05/17 06:00 Room Air 06/05/17 04:00 97.5 76 19 158/89 (112) 91 06/05/17 04:00 85 06/05/17 02:34 92 Nasal Cannula 4.00 06/05/17 00:16 95 Nasal Cannula 5.00 06/05/17 00:00 97.3 72 19 162/77 (105) 94 06/04/17 20:00 98.0 83 20 154/81 (105) 96 06/04/17 19:25 92 Nasal Cannula 4.00 06/04/17 16:00 97.4 88 22 152/75 (100) 90 06/04/17 13:00 97.8 89 24 169/79 (109) 91 Result Diagram: 06/04/17 0701 06/04/17 0701 A/P Problem List: (1) Chronic idiopathic pulmonary fibrosis ICD Codes: J84.112 - Idiopathic pulmonary fibrosis Status: Acute Plan: 1. advanced pulmonary fibrosis with acute flare/dyspnea. ?pna per pulmonary 2. uti continue solumedrol abx per pulmonary pt now asking for hospice care center...notify hospice and d/c to care center when arranged. anxiolytic requested by patient nutrition supplement pt talking with hospice but no decisions made dvt prophylaxis cont her TKI (2) Acute and chronic respiratory failure ICD Codes: J96.20 - Acute and chronic respiratory failure, unspecified whether with hypoxia or hypercapnia Status: Chronic (3) UTI (urinary tract infection) ICD Codes: N39.0 - Urinary tract infection, site not specified Status: Acute (4) Hypertension ICD Codes: I10 - Essential (primary) hypertension Status: Chronic All Zuniga MD Jun 05, 2017 12:37
--- NOTE | 2017-06-05 13:42 | HHI.HCPN ---
Reason for visit a. To assist with evaluation and management of symptoms including: shortness of breath, debility. b. To assist medical decision maker(s) with: better understanding of current medical conditions; weighing benefits/burdens of medical treatment options; making medical treatment decisions. . Subjective/Interval History Palliative care follow-up for further clarifications of goals of care. Patient seen in her room, she was resting in bed in moderate distress. Increased work of breathing noted. Endorsing shortness of breath, nausea and constipation. Patient verbalized that she was unable to eat today secondary to nausea. Endorsing shortness of breath at rest and on minimal exertion. Currently on O2 via nasal cannula at 4L, oxygen saturation in the mid 80s to mid 90s. Patient afebrile, stable hemodynamically. Most recent laboratory work 06/04/17 revealing WBC 8.2, Hgb stable at 12.0, platelet count 156. BUN/creatinine 22/ 0.45. Albumin 2.8. Patient tells me that after further discussion with her family, she has elected to transition to comfort-directed care with hospice. Wishing to be discharged to hospice care center for symptom management. Boyfriend Irvin Ruiz at bedside. Hospice philosophy and benefits reviewed. Patient will likely require long-term placement given higher level of needs. Patient currently taking Ofev for pulmonary fibrosis, reviewed that this medication is not likely to be covered under hospice. Patient reports that she has her own supply, applying to receive free of cost from [address]. Patient reports that both of her brothers and boyfriend are in agreement with plan of care/transition to hospice. Case discussed with Digna/hospice scaleman. . Family/friend interactions See interval note. . Advance Directives Living Will: Copy in medical record Health Care Surrogate: Copy in medical record Durable Power of [employer]: Copy in medical record Advance Directive Specifics Date completed: 05/31/2015. Health Care Surrogate(s): Brother Michael Mera. . Documented care wishes: Living well with standard verbiage as it pertains to end stage condition or persistent vegetative state. . Significant change in goals: No code. Patient electing to transition to comfort-directed care with hospice. . Objective Vital Signs Date Time Temp Pulse Resp B/P (MAP) Pulse Ox O2 Delivery O2 Flow Rate FiO2 06/05/17 09:30 96 Nasal Cannula 6.00 06/05/17 08:15 Nasal Cannula 4.00 40 06/05/17 08:00 97.1 80 22 139/91 (107) 87 06/05/17 06:48 72 06/05/17 06:00 Room Air 06/05/17 04:00 97.5 76 19 158/89 (112) 91 06/05/17 04:00 85 06/05/17 02:34 92 Nasal Cannula 4.00 06/05/17 00:16 95 Nasal Cannula 5.00 06/05/17 00:00 97.3 72 19 162/77 (105) 94 06/04/17 20:00 98.0 83 20 154/81 (105) 96 06/04/17 19:25 92 Nasal Cannula 4.00 06/04/17 16:00 97.4 88 22 152/75 (100) 90 Intake & Output 06/05/17 06/05/17 07:00 19:00 Intake Total 1080 ml Output Total 300 ml Balance 780 ml Intake Oral 780 ml IV Total 300 ml Output Urine Total 300 ml # Voids 2 Physical Exam CONSTITUTIONAL/GENERAL: Obese female in moderate distress secondary to increased work of breathing. TUBES/LINES/DRAINS: PIV's, nasal cannula. SKIN: No jaundice, rashes, or lesions. Ecchymoses on upper extremities. No wounds seen anteriorly. Skin temperature appropriate. Not diaphoretic. HEAD: Atraumatic. Normocephalic. EYES: Pupils equal and round and reactive. Extraocular motions intact. ENT: Hearing grossly normal. Nose without bleeding or purulent drainage. Moist oral mucosa. NECK: Trachea midline. Supple, nontender. No palpable thyroid enlargement or nodularity. CARDIOVASCULAR: Regular rate and rhythm without murmurs. Peripheral pulses symmetric. RESPIRATORY/CHEST: Symmetric, increased work of breathing. Bilateral basal crackles. O2 via nasal cannula at 4L. GASTROINTESTINAL: Abdomen soft, obese, round, nontender. No guarding. Bowel sounds present. GENITOURINARY: Without palpable bladder distension. MUSCULOSKELETAL: Extremities without clubbing, cyanosis. No mottling or clubbing. Edema to bilateral lower extremities. NEUROLOGICAL: Awake and alert. Motor and sensory grossly within normal limits. Follows commands. Cognitively sharp. Moves all extremities. PSYCHIATRIC: Calm, cooperative. . Diagnostic Tests Laboratory Laboratory Tests Test 06/03/17 04:32 06/04/17 07:01 White Blood Count 6.3 TH/MM3 (4.0-11.0) 8.2 TH/MM3 (4.0-11.0) Red Blood Count 3.81 MIL/MM3 (4.00-5.30) 3.86 MIL/MM3 (4.00-5.30) Hemoglobin 11.9 GM/DL (11.6-15.3) 12.0 GM/DL (11.6-15.3) Hematocrit 36.2 % (35.0-46.0) 36.5 % (35.0-46.0) Mean Corpuscular Volume 94.9 FL (80.0-100.0) 94.5 FL (80.0-100.0) Mean Corpuscular Hemoglobin 31.1 PG (27.0-34.0) 31.0 PG (27.0-34.0) Mean Corpuscular Hemoglobin Concent 32.8 % (32.0-36.0) 32.8 % (32.0-36.0) Red Cell Distribution Width 16.0 % (11.6-17.2) 15.9 % (11.6-17.2) Platelet Count 149 TH/MM3 (150-450) 156 TH/MM3 (150-450) Mean Platelet Volume 8.9 FL (7.0-11.0) 8.6 FL (7.0-11.0) Neutrophils (%) (Auto) 90.1 % (16.0-70.0) 91.3 % (16.0-70.0) Lymphocytes (%) (Auto) 5.2 % (9.0-44.0) 3.9 % (9.0-44.0) Monocytes (%) (Auto) 4.7 % (0.0-8.0) 4.7 % (0.0-8.0) Eosinophils (%) (Auto) 0.0 % (0.0-4.0) 0.0 % (0.0-4.0) Basophils (%) (Auto) 0.0 % (0.0-2.0) 0.1 % (0.0-2.0) Neutrophils # (Auto) 5.7 TH/MM3 (1.8-7.7) 7.5 TH/MM3 (1.8-7.7) Lymphocytes # (Auto) 0.3 TH/MM3 (1.0-4.8) 0.3 TH/MM3 (1.0-4.8) Monocytes # (Auto) 0.3 TH/MM3 (0-0.9) 0.4 TH/MM3 (0-0.9) Eosinophils # (Auto) 0.0 TH/MM3 (0-0.4) 0.0 TH/MM3 (0-0.4) Basophils # (Auto) 0.0 TH/MM3 (0-0.2) 0.0 TH/MM3 (0-0.2) CBC Comment DIFF FINAL DIFF FINAL Differential Comment Blood Urea Nitrogen 24 MG/DL (7-18) 22 MG/DL (7-18) Creatinine 0.53 MG/DL (0.50-1.00) 0.45 MG/DL (0.50-1.00) Random Glucose 159 MG/DL (74-106) 156 MG/DL (74-106) Calcium Level 8.6 MG/DL (8.5-10.1) 8.8 MG/DL (8.5-10.1) Sodium Level 144 MEQ/L (136-145) 141 MEQ/L (136-145) Potassium Level 3.6 MEQ/L (3.5-5.1) 3.7 MEQ/L (3.5-5.1) Chloride Level 101 MEQ/L (98-107) 101 MEQ/L (98-107) Carbon Dioxide Level 39.3 MEQ/L (21.0-32.0) 39.2 MEQ/L (21.0-32.0) Anion Gap 4 MEQ/L (5-15) 1 MEQ/L (5-15) Estimat Glomerular Filtration Rate 115 ML/MIN (>89) 139 ML/MIN (>89) Result Diagram: 06/04/17 0701 06/04/17 0701 Microbiology Microbiology Date/Time Source Procedure Growth Status 05/31/17 22:56 Blood Peripheral Aerobic Blood Culture - Final NO GROWTH IN 5 DAYS Complete 05/31/17 22:56 Blood Peripheral Anaerobic Blood Culture - Final NO GROWTH IN 5 DAYS Complete 06/01/17 01:02 Nasal Washing Influenza Types A,B Antigen (DANIELLA) - Final NEGATIVE FOR FLU A AND B ANTIGEN.... Complete 05/31/17 23:08 Urine Clean Catch Urine Culture - Final Escherichia Coli Complete Assessment and Plan Disease Oriented Problem List: (1) Acute and chronic respiratory failure (2) Chronic idiopathic pulmonary fibrosis (3) Pneumonia (4) Physical deconditioning Symptom Scale: (1) Short of breath on exertion 0-10 Scale: 7 Comment: Secondary to end-stage pulmonary fibrosis (2) Debility 0-10 Scale: Unable to quantify Pertinent Non-Medical Issues Psychosocial: Patient is originally from [place]. Moved [place] 46 years ago. He is single, never . No children. 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 No service. Spiritual: Christianity [place] Legal: Advance directives completed. Ethical issues impacting care: No ethical issues identified. . Important Contacts Healthcare surrogate, brother Michael Mera Brother Irvin Mera Boyfriend Irvin Ruiz . Prognosis Mrs. Mera is a 67-year-old female with a medical history significant for end- stage pulmonary fibrosis, asthma, COPD, obesity, Zamorano's esophagus. She presented to ED on 05/31/17 from [facility] for evaluation of worsening hypoxia on supplemental oxygen. Patient was admitted for acute on chronic respiratory failure, exacerbation of pulmonary fibrosis. Patient resident of [facility] facility secondary to profound physical deconditioning, requiring assistance with most ADLs. Poor overall prognosis for long-term survival. Patient appears hospice candidate should she elects comfort-directed care. . Code Status: No Code Plan * CODE STATUS: No code. DNR/DNI. Community DNR in chart. * HEALTHCARE DECISION-MAKING: Patient participating in medical decision-making. She appears to have a good understanding of her clinical condition and prognosis, retains the ability to weight benefits versus burdens of treatment options. Advance directives in chart, patient has designated her brother Michael Mera as healthcare surrogate. * GOALS OF CARE: Patient electing to transition to comfort-directed care with hospice. Patient wishing to be discharged to hospice care center for symptom management. Once symptoms controlled, patient will likely require long-term placement given higher level of needs. Patient currently taking Ofev for pulmonary fibrosis, reviewed that this medication is not likely to be covered under hospice. Patient reports that she has her own supply, applying to receive free of cost from [address]. Patient's family fully supportive of patient's wishes. * SYMPTOMS: = Dyspnea, secondary to end-stage pulmonary fibrosis. Increased symptom burden, increased work of breathing on 4 L nasal cannula. Electing to discharge to hospice care center for symptom management. = nausea/constipation: Nausea likely secondary to constipation. Patient currently on senna and docusate daily. Palliative care recommends lactulose 30 mL when necessary, Dulcolax 10 mg suppository as needed. =Debility: Progressive, worsening since February. Patient requiring assistance with all ADLs. Likely to continue to worsen. * Case discussed with hospice admissions nurse Digna. * Palliative care contact information has been provided to patient and family. * Palliative care will continue to follow-up for further clarifications of goals of care as patient's clinical course continues to evolve. . Time Spent Total Floor Time (mins): 32 (Total time to include review medical records, physical exam, goals of care conversation with patient, case discussion with authorization nurse Digna.) >50% Counseling/Coord of Care: Yes Attestation To help prompt me to consider important information that might be impacting today's encounter and assessment, information from prior notes written by myself or my colleagues may have been "brought forward" into today's note. My signature on this note, however, is an attestation that I personally performed the exam, history, and/or decision-making noted today, and, unless otherwise indicated, the interactions with patient, family, and staff as well as the review of records all occurred today. I also attest that the listed assessment and stated plan reflect my best clinical judgment today based on the combination of historical information, prior notes, and today's exam/ interactions. When time spent is documented, it refers only to time spent today by the signer, or if indicated, combined time spent today by collaborating physician/nurse practitioner. Vaishnavi Martinez Jun 05, 2017 13:42
--- NOTE | 2017-06-05 14:43 | HHI.DCPOC ---
Discharge Care Plan Diagnosis: (1) Acute and chronic respiratory failure (2) Chronic idiopathic pulmonary fibrosis Goals to Promote Your Health * To prevent worsening of your condition and complications * To maintain your health at the optimal level Directions to Meet Your Goals Take your medications as prescribed Follow your dietary instruction Follow activity as directed Keep your appointments as scheduled Take your immunizations and boosters as scheduled If your symptoms worsen call your PCP, if no PCP go to Urgent Care Center or Emergency Room Smoking is Dangerous to Your Health. Avoid second hand smoke Call the 24-hour hour crisis hotline for domestic abuse at Elmira Ayala Jun 05, 2017 14:43
--- NOTE | 2017-06-05 14:47 | HHI.DS ---
Discharge Summary Admission Date Jun 01, 2017 at 01:18 Discharge Date: Jun 05, 2017 Admitting Diagnosis Acute on chronic respiratory failure Pulmonary fibrosis Suspected pneumonia UTI (1) Chronic idiopathic pulmonary fibrosis ICD Codes: J84.112 - Idiopathic pulmonary fibrosis Status: Acute (2) Acute and chronic respiratory failure ICD Codes: J96.20 - Acute and chronic respiratory failure, unspecified whether with hypoxia or hypercapnia Status: Chronic (3) UTI (urinary tract infection) ICD Codes: N39.0 - Urinary tract infection, site not specified Status: Acute (4) Hypertension ICD Codes: I10 - Essential (primary) hypertension Status: Chronic Consultants Dr. Jassi Avila Procedures none Brief History 67-year-old female with a medical history significant for poorly fibrosis with chronic CO2 retention who was brought in from an assisted living facility with a history of worsening shortness of breath for a day. Patient was noted to be hypoxic on arrival and was initially placed on a Ventimask followed by BiPAP with which her O2 sats came up in the low 90s. Patient was initiated on IV steroids, bronchodilators and empiric antibiotics. Her chest x-ray revealed bilateral infiltrates. Patient was accepted for admission by critical care medicine service. When I evaluated the patient in the ER she was on BiPAP with full facemask with settings +16/+8 FiO2 80%. It was difficult to obtain details of history as patient was dyspneic requiring BiPAP with full facemask. History was obtained by reviewing records and discussion with ER physician. CBC/BMP: 06/04/17 0701 06/04/17 0701 Significant Findings Laboratory Tests Test 06/03/17 04:32 06/04/17 07:01 Red Blood Count 3.81 MIL/MM3 (4.00-5.30) 3.86 MIL/MM3 (4.00-5.30) Platelet Count 149 TH/MM3 (150-450) Neutrophils (%) (Auto) 90.1 % (16.0-70.0) 91.3 % (16.0-70.0) Lymphocytes (%) (Auto) 5.2 % (9.0-44.0) 3.9 % (9.0-44.0) Lymphocytes # (Auto) 0.3 TH/MM3 (1.0-4.8) 0.3 TH/MM3 (1.0-4.8) Blood Urea Nitrogen 24 MG/DL (7-18) 22 MG/DL (7-18) Random Glucose 159 MG/DL (74-106) 156 MG/DL (74-106) Carbon Dioxide Level 39.3 MEQ/L (21.0-32.0) 39.2 MEQ/L (21.0-32.0) Anion Gap 4 MEQ/L (5-15) 1 MEQ/L (5-15) Creatinine 0.45 MG/DL (0.50-1.00) Imaging Last Impressions Chest X-Ray 05/31/170 Signed Impressions: Service Date/Time: Wednesday, May 31, 2017 22:48 - CONCLUSION: Stable bilateral central consolidative infiltrates and peripheral interstitial opacities. Larry Flores MD PE at Discharge heart reg lung diminished bs bronson abd s/nt ext no edema Hospital Course Chronic idiopathic pulmonary fibrosis 1. advanced pulmonary fibrosis with acute flare/dyspnea. ?pna per pulmonary 2. uti initally placed in ICU on BiPap continue solumedrol abx per pulmonary pt now asking for hospice care center...notify hospice and d/c to care center when arranged. anxiolytic requested by patient nutrition supplement pt talking with hospice has decided to go to hospice care center dvt prophylaxis Pt Condition on Discharge: Fair Discharge Disposition: Hospice/Med Facility Discharge Instructions DIET: Follow Instructions for: As Tolerated, No Restrictions Activities you can perform: Regular-No Restrictions Continued Medications: Albuterol Neb (Albuterol Neb) 1.25 Mg/3 Ml Neb 1.25 MG NEB Q4HR NEB for pulmonary fibrosis for 30 Days, #120 NEBULE Alprazolam (Xanax) 0.25 Mg Tab 0.25 MG PO Q8H PRN for ANXIETY, #30 TAB 0 Refills Diphenhydramine HCl (Benadryl Allergy) 25 Mg Cap 1 TAB PO HS Fluticasone Nasal [place] (Fluticasone Nasal [place]) 50 Mcg/Act Naspr 50 MCG EACH NARE BID for Allergy Management, #1 BOTTLE 0 Refills 50 mcg/spray Furosemide (Lasix) 20 Mg Tab 20 MG PO EVERY OTHER DAY for swelling, #30 TAB 0 Refills Nintedanib (Ofev) 100 Mg Cap 100 MG PO Q12H for Idiopathic pulmonary fibrosis, #60 CAP 0 Refills Omeprazole (Omeprazole) 20 Mg Tab 20 MG PO BID, #30 TAB 0 Refills Ondansetron (Zofran) 4 Mg Tab 4 MG PO Q6HR PRN for NAUSEA OR VOMITING, TAB 0 Refills Ranitidine (Zantac) 150 Mg Tab 150 MG PO DAILY for Reduce Stomach Acid, #30 TAB 0 Refills Saccharomyces Boulardii (Florastor) 250 Mg Cap 250 MG PO BID for Nutritional Supplement, CAP 0 Refills Discontinued Medications: Cholecalciferol (D3 Maximum Strength) 5,000 Unit Cap 93169 UNITS PO WEEKLY for Nutritional Supplement, #30 CAP 0 Refills Enoxaparin Inj (Enoxaparin Inj) 30 Mg/0.3ML Syr 30 MG SQ DAILY for Blood Clot Prevention, SYRINGE 0 Refills Potassium Chloride ER (Potassium Chloride ER) 8 Meq Cap 8 MEQ PO DAILY for Electrolyte Replacement, #30 CAP 0 Refills Prednisone (Prednisone) 10 Mg Tab 10 MG PO DIRECTED for pulmonary fibrosis for 30 Days, TAB 3 Refills 40mg po daily x 5 days,30mg po daily x 5 days,20mg po daily x 5 days,10mg po daily Sulfamethoxazole-Trimethoprim (Bactrim DS) 800-160 Mg Tab 1 TAB PO BID for Infection for 5 Days, #10 TAB 0 Refills [oxygen] () Unknown Dose VIDA.UCHE CONTINUOUS Additional Information Follow up appointments per hospice El[place]ira Ayala Jun 05, 2017 14:47
== END 2017-06-05 17:59 | disposition hospice, inpatient (51) | DRG 189 ==
LOC: NEPC 21:46 → NEDA 06-01 01:18 → HIMW 06-01 02:25 → N04A 06-03 17:33
PROVIDERS: ADMIT Internal Medicine Critical Care Medicine; ATTEND Internal Medicine Critical Care Medicine
PROC: 5A09457 Assistance with Respiratory Ventilation, 24-96 Consecutive Hours, Continuous Positive Airway Pressure (ICD-10-PCS; principal; 2017-06-01)
DX: J96.21 Acute and chronic respiratory failure with hypoxia (principal); J18.9 Pneumonia, unspecified organism; J84.112 Idiopathic pulmonary fibrosis; Z68.41 Body mass index [BMI] 40.0-44.9, adult; N39.0 Urinary tract infection, site not specified; K21.9 Gastro-esophageal reflux disease without esophagitis; K44.9 Diaphragmatic hernia without obstruction or gangrene; E66.01 Morbid (severe) obesity due to excess calories; K22.70 Barrett's esophagus without dysplasia; Z51.5 Encounter for palliative care; Z66 Do not resuscitate; K59.00 Constipation, unspecified; Z87.891 Personal history of nicotine dependence; Z88.0 Allergy status to penicillin
CPT/HCPCS: 36600; 71010; 76937; 80048; 80053; 81001; 82550; 82805; 82948; 83605; 83735; 83880; 84100; 84484; 85025; 85610; 85730; 87040; 87077; 87086; 87186; 87449; 87641; 87804; 93005; 94002; 94003; 94640; 94664; 96374; 96375; J0692; J1120; J1650; J1940; J2920; J2930; J3370; J7030; J7040; J7050; J7613